=== PATIENT | male | born 1970 | race Caucasian/White ===

== ENCOUNTER 2020-10-19 10:38 | Emergency (ER) | payer BC, SELFPAY ==
[2020-10-19 10:54] VITALS: BP 154/100; PULSE 102; RESP 20; TEMP 36.6; O2SAT 98
--- NOTE | 2020-10-19 11:37 | ED.MALEGU ---
HPI - Male Genitourinary General Chief complaint: Urogenital-Male Stated complaint: Poss UTI Source: patient Mode of arrival: ambulatory Limitations: no limitations History of Present Illness HPI Narrative: Patient is a 50-year-old male who presents complaining of dysuria and frequency x2 days. He denies abdominal or flank pain. He denies fever, chills or body aches. He reports taking Azo yesterday without limited relief. He reports a history of diabetes and hypertension. He denies all other complaints at this time. Patient reports compliance with home medications. MD Complaint: dysuria Related Data Home Medications Medication Instructions Recorded Confirmed glipizide mg 10/19/20 sildenafil 10/19/20 Allergies Allergy/AdvReac Type Severity Reaction Status Date / Time metformin AdvReac Mild body aches Verified 10/19/20 11:14 Review of Systems Review of Systems: Narrative: CONSTITUTIONAL: Denies fever, chills, or sweats. EYES: Denies visual changes, redness, or discharge. ENT: Denies rhinorrhea, congestion, sore throat, or otalgia. CARDIOVASCULAR: Denies chest pain, palpitations, or edema. RESPIRATORY: Denies cough or dyspnea. GASTROINTESTINAL: Denies abdominal pain, nausea, vomiting, or diarrhea. GENITOURINARY: Reports dysuria and frequency SKIN: Denies rash or itching. MUSCULOSKELETAL: Denies back pain, joint pain, or myalgia. NEUROLOGIC: Denies headache, numbness, dizziness, or weakness. PSYCHIATRIC: Denies anxiety or depression. [facility] Past Medical History Medical History Carpal tunnel syndrome Diabetes HTN (hypertension) Surgical History Surgical History History of carpal tunnel surgery Family History Family History (Updated 10/19/20 @ 11:47 by LAYLA Jefferson) Other Heart disease Social History Social History (Updated 10/19/20 @ 11:47 by LAYLA Jefferson) Smoking status: Former smoker Alcohol intake: current Alcohol use details: Occasional Substance use: never Living arrangements: with family Occupation/Education: occupation Comments At the time of signature, I have reviewed and agree with nursing past medical, surgical, social, and family history unless otherwise noted. Please see nursing chart for further information. There is no relevant family history pertinent to the presenting complaint. Exam Narrative: Exam Narrative: GENERAL: Well-appearing, well-nourished, and in no acute distress. HEAD: Normocephalic, atraumatic. EYES: EOMI. No redness or drainage. ENT: Mucous membranes pink and moist. CHEST: No respiratory distress. HEART: Regular rate and rhythm. EXTREMITIES: Normal range of motion. SKIN: Warm, dry, no rash. NEURO: No focal deficits. Alert and oriented x3. Gait steady. PSYCH: Normal affect. No signs of depression or anxiety. Course Vital Signs Vital signs: Vital Signs Temperature 36.6 C 10/19/20 10:54 Pulse Rate 102 H 10/19/20 10:54 Respiratory Rate 20 10/19/20 10:54 Blood Pressure 154/100 H 10/19/20 10:54 Pulse Oximetry 98 10/19/20 10:54 Temperature 36.6 C 10/19/20 10:54 Pulse Rate 102 H 10/19/20 10:54 Respiratory Rate 20 10/19/20 10:54 Blood Pressure 154/100 H 10/19/20 10:54 Pulse Oximetry 98 10/19/20 10:54 MDM - Male Genitourinary Lab Data Labs: Urine Glucose 3+ Reference Range: Negative Urine Bilirubin Negative Reference Range: Negative Urine Ketone Trace Reference Range: Negative Urine Specific [place] 1.025 Reference Range:1.001-1.035 Urine Blood 2+
[2020-10-19 11:52] LABS: Glucose Point of Care 245 mg/dl (65-105)
== END 2020-10-19 12:08 | disposition home or self-care (01) ==
PROVIDERS: Emergency Provider Nurse Practitioner; PCP Internal Medicine
DX: N39.0 Urinary tract infection, site not specified (principal); Z87.891 Personal history of nicotine dependence; E11.9 Type 2 diabetes mellitus without complications; I10 Essential (primary) hypertension
CPT/HCPCS: 81003; 82948; 87086; 99203; G0463

== ENCOUNTER 2024-02-07 09:07 | Outpatient (CLI) | payer BC, SELFPAY ==
--- NOTE | ~2024-02-07 | MR_ITS ---
MRI of the left shoulder Technique: Axial proton-density fat-sat images, coronal proton density fat-sat and T2 fat-sat images, and sagittal T1-weighted and T2 fat-sat images were acquired. Clinical History: Impingement Findings: There is mild AC joint degenerative change. No significant subacromial spur present. There is mild bony productive change of the distal clavicle. Coracoclavicular, coracoacromial, and coracohu meral ligaments are intact. Possible linear low-grade partial tear at the distal supraspinatus tendon versus tendinosis. No high- grade partial or full-thickness tear seen. There is mild infraspinatus tendinosis. There is moderate subscapularis tendinosis. Tendon of long head of the biceps is intact. Questionable superior labral tear extending to the anterosuperior portion. Inferior glenohumeral ligament is intact. No degenerative change or effusion of the glenohumeral join t. No fluid distention of the subacromial/subdeltoid bursa. No muscle atrophy or edema. Impression: Questionable superior labral tear extending to the anterosuperior portion. Mild to [id number] rotator cuff tendinosis. Questionable linear low-grade partial thickness tea r at the distal supraspinatus tendon insertion. Mild AC joint degenerative change. Reviewed, dictated and finalized at [facility]. Impression: Questionable superior labral tear extending to the anterosuperior portion. Mild to [id number] rotator cuff tendinosis. Questionable linear low-grade partial thickness tear at the distal supraspinatus tendon insertion. Mild AC joint degenerative change.
== END 2024-02-07 09:08 | disposition home or self-care (01) ==
LOC: MICIMG 09:09
PROVIDERS: PCP Internal Medicine; Visit Provider Physician Assistant Surgical
DX: M75.42 Impingement syndrome of left shoulder (principal); M19.012 Primary osteoarthritis, left shoulder
CPT/HCPCS: 73221

== ENCOUNTER 2024-03-25 10:17 | Outpatient (CLI) | payer BC, SELFPAY ==
--- NOTE | 2024-03-25 10:51 | ECG_ITS ---
Test Date: 2024-03-25 10:58:32 Measurements Intervals [place] Rate: 66 P: 51 MD: 160 QRS: 14 QRSD: 86 T: 19 QT: 389 QTc: 410 Interpretive Statements SINUS RHYTHM WITH MARKED SINUS ARRHYTHMIA No previous ECG available for comparison Electronically Signed On 03-25-2024 14:45:55 [employer] by Ganesh Godoy M.D.
[2024-03-25 11:07] LABS: Anion Gap 4 mmol/L (4-12); Blood Urea Nitrogen 15 mg/dL (9-20); Carbon Dioxide 30 mmol/L (22-30); Chloride 104 mmol/L (98-107); Estimated Glomerular Filt Rate > 60; Glucose 140 mg/dL (65-110); Potassium 4.3 mmol/L (3.4-5.0); Sodium 138 mmol/L (137-145)
== END 2024-03-25 10:18 | disposition home or self-care (01) ==
LOC: ANHLAB 10:20
PROVIDERS: PCP Internal Medicine; Visit Provider Anesthesiology
DX: E11.9 Type 2 diabetes mellitus without complications (principal)
CPT/HCPCS: 36415; 80048; 93005

== ENCOUNTER 2024-03-30 01:36 | Day surgery (SDC) | payer BC, SELFPAY ==
[2024-03-24 10:54] VITALS: BMI 22.1
--- NOTE | 2024-03-24 11:02 | PC.NURSE ---
Report to the Outpatient Waiting Room, entrance under the green pavilion located off [facility], at time _1130_ on date _[id number]_. Planned Procedure Time: _130pm_.? Time changes happen often and if your time is changed the preop area will call you the afternoon before. - You and your visitor will be asked to self-screen and do not enter if you have any COVID symptoms. Please call surgeon if you need to reschedule. - A mask is optional within the hospital at this time. Patients may have clear liquids (water, carbonated beverages, clear teas, apple juice) until 3 hours prior to surgery with a maximum of 20 ounces. - No food from midnight until time of surgery and no smoking. This includes no chewing gum, candy or mints. Take only the following medications with a SIP of water on the morning of surgery: ___None DO NOT STOP ANY OF YOUR OTHER PRESCRIPTION MEDICATIONS PRIOR TO SURGERY EXCEPT THE FOLLOWING Medications to discontinue per physician Patient stopped Aspirin already.____ Please no make-up, nail ugandan, hairspray, perfume, deodorant, or body powder the day of surgery.? No jewelry (including any body piercings) or valuables the day of surgery, leave them at home.? Please take a shower or bath the night before, or the morning of, surgery with an antibacterial soap.? Wear comfortable, loose fitting clothing.? - Jewelry must be removed prior to entering the operating room.? Rings and piercings that are not removed may be cut off. - The hospital will not accept responsibility for valuables.? - Please leave all valuables, including medications, at home the day of surgery. If you are going home after surgery, a licensed services delivery driver must drive you home.? - NO public transportation without another adult if you receive anesthesia. - We recommend that an adult stay with you for 24 hours following discharge. - We also recommend that you do not drive, make important decision, drink alcoholic beverages, or take any drugs that were not prescribed by your health care provider for at least 24 hours after your discharge time. Follow any additional instructions given to you from your surgeon. Telephone instructions given to __David__and asked if any additional questions and then verbalized understanding. Patient advised to call surgeon office or pre surgery nurse liaison [phone] if any additional questions.
[2024-03-30] VITALS (9 sets, daily range): BP systolic 109–132; BP diastolic 67–87; PULSE 67–95; RESP 14–18; TEMP 36.2–36.4; O2SAT 93–99
--- NOTE | 2024-03-30 07:18 | WPDHPUPDATE1 ---
History and Physical Update Update Date/Time: 03/30/24 07:18 History and Physical has been reviewed, including an updated exam of the patient. There are NO changes in the patient's condition. Risks, benefits, and alternatives have been discussed and questions answered. Patient agrees to proceed with procedure.
[2024-03-30] MEDS: EPINEPHrine HCL INJ 1 MG/ML AMPUL 3 MG IRRIGATION (08:31)
[2024-03-30] MEDS: LACTATED RINGERS 1,000 ML 30 ML IV CONT ×2 (11:15→15:10)
[2024-03-30 12:11] LABS: Glucose Point of Care 114 mg/dl (65-105)
[2024-03-30] MEDS: ACETAMINOPHEN 500 MG TABLET 1000 MG PO (12:12)
[2024-03-30] MEDS: KETOROLAC 15 MG/ML VIAL (*BKC) IV PUSH (12:12)
--- NOTE | 2024-03-30 12:18 | WPDANESEPPF ---
Anes - Initial Pre Proc Eval Procedure: Operation Date: 03/30/24 13:30 Proposed Procedures p Left Arthroscopic Rotator Cuff Repair with Biceps Tenodesis, Subacromial Decompression, Proceed as Indicated - Yaniv Chau MD Date/Time: 03/30/24 12:18 Surgeon: Yaniv Chau MD Pre Op Diagnosis: left shoulder slap tear, biceps tendonitis Patient Data Age: 53 Gender: M Height: 1.8 m Weight: 71.8 kg Allergies Allergy/AdvReac Type Severity Reaction Status Date / Time metformin AdvReac Mild body aches Verified 03/30/24 12:14 Home Medications ?Medication ?Instructions ?Recorded ?Confirmed ?Type glipizide 5 mg tablet 5 mg PO DAILY 10/19/20 03/30/24 History sildenafil 100 mg tablet 100 mg PO HS PRN Sexual Activity 10/19/20 03/24/24 History aspirin 81 mg capsule 81 mg PO DAILY 06/16/23 03/30/24 History atorvastatin 40 mg tablet 40 mg PO HS 03/24/24 03/30/24 History empagliflozin 25 mg tablet 25 mg PO DAILY 03/24/24 03/30/24 History (Jardiance) lisinopril 10 mg tablet 10 mg PO DAILY 03/24/24 03/24/24 History semaglutide 1 mg/dose (4 mg/3 mL) 1 mg subcut WEEKLY 03/24/24 03/30/24 History subcutaneous pen injector (Ozempic) Laboratory Tests 03/30/24 12:05 POC Capillary Glucose 114 H mg/dl (65-105) Patient hx anesthesia problems: none Family hx anesthesia problems: none Results Review: All pre-operative results and documents have been reviewed as part of the pre-operative evaluation. [facility] Past Medical History Medical History History of stress test Carpal tunnel syndrome Diabetes HTN (hypertension) Surgical History Surgical History History of carpal tunnel surgery Family History Family History Other Heart disease Social History Social History Smoking packs per day: 1 Smoking cigarettes per day: 20.0 Years smoked: 19 Smoking pack-years: 19.00 Smoking status: Former smoker Tobacco type: cigarettes Smoking end date: 09/22/22 Additional smoking assessment comments: using nicotine gum presently Alcohol intake: current Alcohol use details: Occasional Substance use: never Do You Feel Safe in your Home?: Yes Lack of Transportation: No Lack of Food: Never True Current Housing: I Have Housing Concerned About Future Housing: No Difficulty Paying Gas/Electric Bills: No Difficulty Paying for Meds: No Currently Unemployed: No Education: Bachelor's Degree Difficulty w/ Childcare or Family Care: No Living arrangements: with family Occupation/Education: occupation Spiritual care concerns: No Anes - Eval Final PreProcedure Day of Procedure 03/30/24 12:18 Patient weight: normal Heart: regular rate and rhythm Lungs: clear to auscultation Airway: Mallampati scale Neurological: alert and oriented Last oral intake: >/= 8 hours ASA classification: III Emergent: no Anesthetic plan: proceed Anesthesia type and monitoring: general ETT and standard monitoring Results Review: All pre-operative results and documents have been reviewed as part of the pre-operative evaluation. HTN, DM fsbs 114, ex smoker quit 2021. Hx of CHARISMA but no CPAP since wt loss. Informed Consent: The patient's anesthetic plan and its attendant risks and benefits were discussed with the patient/family/POA. Questions were solicited and answers provided to the satisfaction of the patient/family/POA.
--- NOTE | 2024-03-30 13:04 | WPDANESPNB ---
Anes - Peripheral Nerve Block Date/Time: 03/30/24 13:04 I have discussed with the patient/family/POA the placement of a peripheral nerve block for post-operative pain management, including associated risks, benefits, complications, and side effects. Alternative methods of post-operative analgesia were detailed. Questions were solicited and answers provided to the satisfaction of the patient/family/POA. Time-Out: A pre-procedural Time-Out was completed immediately before starting the procedure and confirmed: Patient Identification, Site, Procedure, Patient Position and the Availability of Requisite Equipment. Clinical Indications: Acute post-operative pain management requested by the operative surgeon. Nerve Block Insertion Note Anes-nerve block: interscalene left Patient position: supine Skin prep: chlorhexidine Needle: 22 gauge, stimulating, insulated echogenic needle. Needle length: 50 mm Technique: ultrasound Injectate: bupivacaine 0.5% with epi 5 mcg/ml (20cc no epi) Observations: tolerated well Complications: none Procedure start time:: 1255 Procedure end time:: 1300
[2024-03-30] MEDS: ceFAZolin 2 GM/D5W 50 ML 2 GM/50 ML BAG IVPB (13:07)
[2024-03-30] MEDS: ceFAZolin 1 GM/NS 50 ML 1 GM/50 ML BAG IVPB (13:39)
[2024-03-30 15:19] LABS: Glucose Point of Care 114 mg/dl (65-105)
--- NOTE | 2024-03-30 17:28 | P.OP_ITS ---
Procedure Note - Detailed Date of Procedure 03/30/24 Pre-op Diagnosis Left shoulder partial thickness rotator cuff tear, SLAP tear, biceps tendinitis. Post-op Diagnosis Other (1. Partial thickness rotator cuff tear 2. Subacromial impingement 3. Biceps tendinosis 4. Degenerative labral tear) Procedure Performed Left shoulder 1. Arthroscopic rotator cuff repair 2. Arthroscopic subacromial decompression 3. Arthroscopic biceps tenodesis 4. Arthroscopic labral debridement Surgeon Yaniv Chau MD Curtain Stitcher Marleni Dominguez PA-C Anesthesia General Findings Mid grade articular side supraspinatus rotator cuff tear. SLAP tear and biceps tendinitis. Regenten collagen repair with 5 SHELBIE anchors and 2 PEEK anchors. Loop and Tack biceps tenodesis. Description of Procedure Preoperative antibiotics were given. An interscalene block was administered in the preoperative area. The patient was bought brought to the operating room. A general anesthetic was administered. The patient was carefully positioned in the beach chair position. The head and neck were carefully positioned. The non operative extremity was also carefully positioned. The shoulder was prepped and draped in the usual sterile fashion. Examination was performed. Standard posterior and anterior arthroscopic portals were established. Inflow achieved with the arthroscopic pump using saline and epinephrine. The glenohumeral joint was carefully inspected. The cartilage was healthy other than a small area of fraying at the anterior inferior glenoid labrum. The supraspinatus showed a significant 50% tear. The remaining tendon was good. The SLAP tear was extensive and the the biceps was tenodesed at the articular margin with a loop and tack fixation using a swivel lock anchor. The subscapularis looked very good. Attention was turned to the subacromial space. The bursa was abundant, and appeared inflamed. A complete bursectomy was performed. The bursal side of the cuff appeared normal. A modest acromioplasty was performed. The arthroscopic instruments were removed. The wounds were closed with 3-0 Monocryl subcuticular suture and steri strips. There were no complications. A sling was applied and the patient brought to the recovery room. Physician human resources benefits assistant, Marleni Dominguez PA-C, required for surgery; including patient positioning, draping, arthroscopic camera operation, maintaining instrument position, suture retrieval, wound closure, and dressing and sling placement. Implants Regeneten collagen implant, size large. 5 SHELBIE anchors, and 2 PEEK anchors. 4.75 bioabsorbable swivel tack anchor. Estimated Blood Loss 10 Pathology None sent Complications No immediate complications Condition Stable Disposition PACU [facility] Billing Surgery - Charge Forward: Surgery Billing
== END 2024-03-30 17:35 | disposition home or self-care (01) ==
PROVIDERS: PCP Internal Medicine; Visit Provider Orthopaedic Surgery
PROC: (CPT 29805; principal; 2024-03-30 13:30)
DX: M75.112 Incomplete rotator cuff tear or rupture of left shoulder, not specified as traumatic (principal); M75.42 Impingement syndrome of left shoulder; M75.22 Bicipital tendinitis, left shoulder; M75.82 Other shoulder lesions, left shoulder; G89.18 Other acute postprocedural pain; I10 Essential (primary) hypertension; E11.9 Type 2 diabetes mellitus without complications; Z87.891 Personal history of nicotine dependence; Z79.84 Long term (current) use of oral hypoglycemic drugs; Z79.85 Long-term (current) use of injectable non-insulin antidiabetic drugs
CPT/HCPCS: 29827; 29828; 29826; 64415; 82948; A4565; A9270; C1713; J0171; J0690; J1100; J1171; J1596; J1885; J2003; J2250; J2371; J2405; J2704; J3010; J7120

== ENCOUNTER 2024-11-05 10:52 | Emergency (ER) | payer BC, SELFPAY ==
--- OUTSIDE RECORDS SUMMARY | 2024-11-05 10:54 | XMS_ITS | Clinical Summary ---
Author Organization [facility] Address [address] [place] [address] Care Team Providers [facility] Name Role Phone Kris Perla MD Primary Care Provider [phone] Chas Thurman MD Unavailable Allergies Active Allergy Reactions Criticality Noted Date Comments Metformin Vomiting 10/08/2016 diarrhea Medications aspirin EC 81 MG Tablet Delayed Response Take 81 mg by mouth daily. Active Jardiance 25 MG Tablet TAKE 1 TABLET BY MOUTH EVERY DAY 30 Tablet 11 3 Active Blood Glucose Monitoring Suppl Device Diagnosis: Diabetes type 2 Blood testing frequency: once a day 1 Each 4 Active Lancets Misc Test once daily. E11.9 100 Lancet 3 4 Active Glucose Blood Strip Use to test blood sugar once daily. E11.9 100 Strip 3 4 Active lisinopril (PRINIVIL, ZESTRIL) 10 MG Tablet TAKE 1 TABLET BY MOUTH EVERY DAY 90 Tablet 1 4 Active sildenafil citrate (VIAGRA) 100 MG Tablet TAKE 1 TABLET BY MOUTH NEEDED FOR ERECTILE DYSFUNCTION 8 Tablet 9 4 Active atorvastatin (LIPITOR) 40 MG Tablet TAKE 1 TABLET BY MOUTH EVERY DAY 90 Tablet 1 4 Active tirzepatide (Mounjaro) 10 MG/0.5ML Solution Pen-injector 10 mg by Subcutaneous route once a week. 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 Acute pancreatitis without infection or necrosis 11/01/2017 Type 2 diabetes mellitus, wi thout long-term current use of insulin 11/01/2017 Hyponatremia 11/01/2017 Dyslipidemia 09/17/2017 Tobacco abuse 10/08/2016 Bronchitis 12/31/2015 Anxiety HTN (hypertension) Osteoarthritis of spine CHARISMA (obstructive sleep apnea) DM (diabetes mellitus) Immunizations Immunization Administration Dates Next Due Covid-19, Mrna, Lnp-s, Pf, 3 0 Mcg/0.3 Ml Dose (Boxee) 08/04/2020,07/14/2020 Influenza Vaccine, Quadrivalent, PF 03/19,01/01/2022,04/25/2021,02/17 Influenza,Split Virus,Trivalent,Injectable,PF 12/31/2023 Pneumococcal PCV, Unspecifie d Formulation 11/25/2012 Pneumococcal Vaccine Adult - 23 Valent 3 Pneumococcal Vaccine, Unspec ified Formulation 11/25/2012 Pneumococcal conjugate PCV20 , polysaccharide [id number] conjugate, adjuvant, PF 01/01/2022 TD VACCINE 07/27/2023 TDAP Vaccine 11/25/2012 Tetanus Toxoid, Unspecified Formulation 04/19/2003 Family History Medical History Relation Name Comments No Known Problems Daughter 1 No Known Problems Daughter 2 Cancer Father Congestive Heart Failure Father Diabetes Father Hypertension Father Lung Cancer Father Diabetes Mother Cancer Paternal Grandmother Throat? No Known Problems Sister No Known Problems Son Relation Name Status Comments Daughter 1 Alive Daughter 2 Alive Father Maternal Grandfather Maternal Grandmother Mother Alive Paternal Grandfather Paternal Grandmother Sister Alive Son Alive Social History Tobacco Use Types Packs/Day Years Used Date Smoking Tobacco: Former Cigarettes 0.5 34.2 1 989 - 07/10/2022 Smokeless Tobacco: Former Chew Quit: 1999 Tobacco Cessation:Counseling Given: No Alcohol Use Standard Drinks/Week Comments Yes 0 (1 standard drink = 0.6 oz pur e alcohol) 1-2 beers a week [facility] Utilities Answer Date Recorded In the past 12 months has th e electric, gas, oil, or water company threatened to shut off services in your home? No 07/27/2023 Social Connection and Isolation Panel Answer Date Recorded In a typical week, how many times do you talk on the phone with family, friends, or neighbors? Three times a week 07/27/2023 How often do you get togethe r with friends or relatives? Once a week 07/27/2023 Attends Synagogue Services Not on file 07/26 Active Member of Clubs or Organizations Not on f ile 07/27/2023 Attends Club or Organization Meetings Not on tali e 07/27/2023 Marital Status Not on file 07/27/2023 AUDIT-C Answer Date Recorded Q1: How often do you have a drink containing alc ohol? 2-4 times a month 07/27/2023 Q2: How many drinks containi ng alcohol do you have on a typical day when you are drinking? 1 or 2 07/27/2023 Frequency of Binge Drinking Not on file 12/2023 Overall Financial Resource Strain (CARDIA) Answe r Date Recorded How hard is it for you to pa y for the very basics like food, housing, medical care, and heating? Not hard at all 07/27/2023 PHQ-2 Answer Date Recorded Total Score - Questions 1-9 0 10/2021 [facility] - Occupational Stress Questionnaire Answer Date Recorded Do you feel stress - tense, restless, nervous, or anxious, or unable to sleep at night because your mind is troubled all the time - these days? Not at all 07/27/2023 Exercise Vital Sign Answer Date Recorde d On average, how many days pe r week do you engage in moderate to strenuous exercise (like a brisk walk)? 5 days 07/27/2023 On average, how many minutes do you engage in exercise at this level? 40 min 07/27/2023 Hunger Vital Sign Answer Date Recorded Within the past 12 months, y ou worried that your food would run out before you got the money to buy more. Never true 07/27/19 24 Within the past 12 months, t he food you bought just didn't last and you didn't have money to get more. Never true 07/27/2023 PRAPARE - Transportation Answer Date Re corded In the past 12 months, has l ack of transportation kept you from medical appointments or from getting medications? No 12/2023 In the past 12 months, has l ack of transportation kept you from meetings, work, or from getting things needed for daily living? No 07/27/2023 Housing Stability Vital Sign Answer Anmol e Recorded In the last 12 months, was t here a time when you were not able to pay the mortgage or rent on time? No 07/27/2023 In the last 12 months, how many places have you lived? 1 07/27/2023 In the last 12 months, was t here a time when you did not have a steady place to sleep or slept in a long term (including now)? No 07/27/2023 Education Answer Date Recorded What is the highest level of school you have completed or the highest degree you have received? Associate degree: academic program 07/31/2020 Sexually Active Control Partners Comments Not Currently Female Sex and Gender Information Value Date Recorded Sex Assigned at Not on file Legal Sex Male 11:05 PM CDT Gender Identity Not on file Sexual Orientation Not on file Last Filed Vital Signs Vital Sign Reading Time Taken Comments Blood Pressure 126/78 12/31/2023 7:38 AM CDT Pulse 94 12/31/2023 7:38 AM CDT Temperature 36.2 C (97.1 F) 12/31/2023 7:38 AM CDT Respiratory Rate 16 12/31/2023 7:38 AM CDT Oxygen Saturation 96% 12/31/2023 7:38 AM CDT Inhaled Oxygen Concentration - - Weight 117.9 kg (260 lb) 12/31/2023 7:38 AM CDT Height 180.3 cm (5' 11) 12/31/2023 7:38 AM CDT Body Mass Index 36.26 12/31/2023 7:38 AM CDT Plan of Treatment Health Maintenance Due Date Last Done Comments Diabetes: Eye Exam 1969 Hepatitis C Virus (HCV) Screening 1969 Hepatitis B Immunization (1 of 3 - 19+ 3-dose series) 1988 Cologuard 2014 Immunochemical Fecal Occult Blood 2014 Zoster Immunization (1 of 2) 09/24/2019 Diabetes: Foot Exam 08/11/2023 08/10/2022, 09/19/2018, 09/19/2018 SARS-COV-2 Immunization ( season) 2023 08/04/2020, 07/14/2020 Diabetes: Hemoglobin A1c 01/26/2024 024, 03/30/2023, 11/04/2022, Additional history exists Colonoscopy 04/18/2024 04/18/2014 Colorectal Cancer Screening 04/18/2024 Diabetes: Nephropathy Screening 07/26/2024 07/27/2023, 03/30/2023, 11/04/2022, Additional history exists Influenza Immunization (#1) 12/18/202412/18, 03/30/2023, 01/01/2022, Additional history exists Td Immunization Every 10 Years (Adults With 1 Tdap) 07/26/2033 07/27/2023, 11/25/2012 Respiratory Syncytial Virus (RSV) Immunization (Adult) (1 - 1-dose 75+ series) 2044 Pneumococcal Immunization (50+ years) Completed 01/01/2022, 11/25/2012, 11/25/2012, Additional history exists Pneumococcal Immunization Combined Discontinued 01/01/2022, 11/25/2012, 11/25/2012, Additional history exists PSA Discussion Completed 11/04/2022 Human Papillomavirus (HPV) Immunization Aged Out No longer eligible based on patient's age to complete this topic Meningococcal Immunization (ACWY) Aged Out No longer eligible based on patient's age to complete this topic Rotavirus Immunization Aged Out No lo nger eligible based on patient's age to complete this topic Procedures Procedure Name Priority Date/Time Associated Diagnosis Comments CMP (COMPREHENSIVE METABOLIC PANEL) Today 07/27/2023 4:25 PM CDT Type 2 diabetes mellitus without complication, without long-term current use of insulin (HCC) Essential hypertension HEMOGLOBIN A1C W/ ESTIMATED GLUCOSE Today 07/27/2023 4:25 PM CDT Type 2 diabetes mellitus without complication, without long-term current use of insulin (HCC) Essential hypertension PSA SCREEN Routine 11/04/2022 1:48 PM CDT Screening for prostate cancer HM COLONOSCOPY Routine 04/18/2014 from Last 3 Months or Most Recently Relevant to Health Maintenance Results * (ABNORMAL) HEMOGLOBIN A1C W/ ESTIMATED GLUCOSE (07/27/2023 4:25 PM CDT) HGB-A1C 7.2(H) 4.0 - 6.0 % 07/27/2023 6:48 PM CDT [facility] Est Average Glucose 159.9 mg/dL 07/27/2023 6:48 PM CDT [facility] Blood Venipuncture / Unknown 07/27/2023 4:25 PM CDT 07/27/2023 5:58 PM CDT Narrative [facility] - 07/27/2023 6:48 PM CDT HEMOGLOBIN A1C: DIABETIC PATIENTS: WELL-CONTROLLED: 6.2 - 7.0 INTERMEDIATE WELL-CONTROLLED: 7.0 - 9.0 POORLY-CONTROLLED: >9.0 us Kris Perla MD CHEMISTRY ORDERABLES Final Re sult [facility] [address] [place] [address] * (ABNORMAL) CMP (COMPREHENSIVE METABOLIC PANEL) (07/27/2023 4:25 PM CDT) Pathologist [facility] SODIUM 139 136 - 145 mmol/L 07/27/2023 6:50 PM CDT [facility] POTASSIUM 4.0 3.5 - 5.1 mmol/L 07/27/2023 6:50 PM CDT [facility] CHLORIDE 105 98 - 107 mmol/L 07/27/2023 6:50 PM CDT [facility] CO2, VENOUS 25 22 - 30 mmol/L 07/27/2023 6:50 PM CDT [facility] ANION GAP 13.0 <18.0 mmol/L 07/27/2023 6:50 PM CDT [facility] GLUCOSE 100(H) 70 - 99 mg/dL 07/27/2023 6:50 PM CDT [facility] BUN 11 8 - 26 mg/dL 07/27/2023 6:50 PM CDT [facility] CREATININE, BLOOD 0.79 0.70 - 1.30 mg/dL 07/27/2023 6:50 PM CDT [facility] BUN/CREATININE RATIO 14 12 - 20 ratio 07/27/2023 6:50 PM CDT [facility] TOTAL PROTEIN 7.2 6.3 - 8.2 g/dL 07/27/2023 6:50 PM CDT [facility] ALBUMIN 4.2 3.5 - 5.0 g/dL 07/27/2023 6:50 PM CDT [facility] A/G RATIO 1.4 1.0 - 2.2 07/27/2023 6:50 PM CDT [facility] CALCIUM 9.3 8.7 - 10.5 mg/dL 07/27/2023 6:50 PM CDT [facility] T BILI 0.6 0.2 - 1.2 mg/dL 07/27/2023 6:50 PM CDT [facility] SGOT (AST) 25 5 - 34 U/L 07/27/2023 6:50 PM T [facility] SGPT (ALT) 29 0 - 55 U/L 07/27/2023 6:50 PM CDT [facility] ALKALINE PHOSPHATASE 93 40 - 150 U/L 07/27/2023 6:50 PM T [facility] IS THE PATIENT REQUIRED TO BE FASTING? No 07/27/2023 6:50 PM CDT [facility] GFR, ESTIMATED >60 >=60 07/27/2023 6:50 PM T [facility] Comment: Creatinine Clearance is the preferred criteria for selecting drug dose adjustments in renally impaired patients. The GFR is provided as additional pertinent clinical information. GFR is reported in mL/min/1.73 sq m. Calculation based on the Chronic Kidney Disease Epidemiology Collaboration (CKD- EPI) equation refit without adjustment for race. GFR, EST. >60 >=60 024 6:50 PM CDT [facility] GFR, EST. NONAFRICAN >60 >=60 07/27/2023 6:50 PM CDT [facility] Blood Venipuncture / Unknown 07/27/2023 4:25 PM CDT 07/27/2023 5:59 PM CDT us Kris Perla MD CHEMISTRY ORDERABLES Final Re sult Performing Organization Address City/[facility]/ZIP Co de Phone Number [facility] [address] [place] [address] * PSA SCREEN (11/04/2022 1:48 PM CDT) PSA SCREEN, TOTAL 0.27 <=4.00 ng/mL 11/04/2022 4:17 PM CDT [facility] Blood Venipuncture / Unknown 11/04/2022 1:48 PM CDT 11/04/2022 1:48 PM CDT us Kris Perla MD CHEMISTRY ORDERABLES Final Re sult Performing Organization Address City/[facility]/ZIP Co de Phone Number [facility] [address] [place] [address] * COLONOSCOPY (04/18/2014) us Kris Perla MD PROCEDURE/MINOR SURGICAL ORDE LENY Edited Result - Final from Last 3 Months or Most Recently Relevant to Health Maintenance Insurance [facility] Advance Directives * Full Code (Latest Code Status on File) Date Activated Date Inactivated Comments 11/01/2017 4:31 PM 11/03/2017 3:40 PM CPR-Full Trav atment: FULL ARREST: Attempt Resuscitation/CPR wit intubation and mechanical ventilation. PRE-ARREST: Use entire range of life support measures to stabilize the patient. Care Teams [facility] Relationship Specialty Start Date End Date Kris Perla MD [address] [facility] [address] [place] [address] PCP - General Family Medicine 03/15/15 Chas Thurman MD [address] [facility] [address] [place] [address] Consulting Physician Colon and Rectal Surgery 03/18/22
--- OUTSIDE RECORDS SUMMARY | 2024-11-05 10:54 | XMS_ITS | Encounter Summary ---
Author Organization [facility] Address [address] 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 Under Cutting Machine Operator Name Role Phone Kris Perla MD Primary Care Provider [phone] Chas Thurman MD Unavailable Reason for Visit * Reason Comments Medication Refill Encounter Details Date Type Department Care Team (Late st Contact Info) Description 05/14/2023 Refill [facility] - Family Medicine [facility] [address] [place] [address] Kris Perla MD [address] [address] Medication Refill Social History Tobacco Use Types Packs/Day Years Used Date Smoking Tobacco: Former Cigarettes 0.5 34.2 1 989 - 07/10/2022 Smokeless Tobacco: Former Chew Quit: 1999 Alcohol Use Standard Drinks/Week Comments Yes 0 (1 standard drink = 0.6 oz pur e alcohol) 1-2 beers a week PHQ-2 Answer Date Recorded Total Score - Questions 1-9 0 10/2021 Education Answer Date Recorded What is the highest level of school you have completed or the highest degree you have received? Associate degree: academic program 07/31/2020 Sexually Active Control Partners Comments Not Currently Female Sex and Gender Information Value Date Recorded Sex Assigned at Not on file Legal Sex Male 11:05 PM CDT Gender Identity Not on file Sexual Orientation Not on file documented as of this encounter Miscellaneous Notes * Telephone Encounter - Kelly Flower RN - 05/14/2023 4:35 PM CST Images from the original note were not included. Lisinopril Dispensed Days Supply Quantity Provider Pharmacy LISINOPRIL 10 MG TABS 05/09/2023 90 90 Tablet Kris Perla MD [facility]/pharmacy #[id number] - W... LISINOPRIL 10 MG TABLET 02/08/2023 90 90 Each Kris Perla MD [facility]/pharmacy #[id number] - W... GER OF PURCHASING documented in this encounter Plan of Treatment Not on file documented as of this encounter Visit Diagnoses Not on filedocumented in this encounter Additional Health Concerns Assessment Noted Time PHQ-9 Depression Total Score: 0 01/24/20 21 3:00 PM CDT documented as of this encounter Care Teams Under Cutting Machine Operator Relationship Specialty Start Date End Date Kris Perla MD [address]2 [facility] [address] [place] [address] PCP - General Family Medicine 03/15/15 Chas Thurman MD #2 [facility] [address] [place] [address] Consulting Physician Colon and Rectal Surgery 03/18/22 documented as of this encounter
--- OUTSIDE RECORDS SUMMARY | 2024-11-05 10:54 | XMS_ITS | Continuity of Care Document ---
Author Name [facility] Organization [facility] Care Team Providers Care Child Care Aide Name Role Phone [facility] Unavailable Unavailable Problems Combined list of problems from Department of Defense and Veterans Affairs facilities. It does not include entries that were removed or entered in error. Problem Status Onset Date Problem Type Date of Resolution Comments Source Allergic rhinitis Active Condition [facility] Benign essential hypertension (SNOMED CT 4104854) Active Condition [facility] Exposure to potentially hazardous substance Active Condition [facility] Hyperlipidemia Active Condition [facility] Low back pain Active Condition [facility] Mixed anxiety and depressive disorder Active Condition [facility] Morbid obesity (SNOMED CT 079409599) Active Condition [facility] Tobacco user (SNOMED CT 468675671) Active Condition [facility] Type 2 diabetes mellitus Active Condition [facility] Abdominal pain (SNOMED CT 86083269) Inactive Condition 09/22/2023 [facility] Constipation (SNOMED CT 59662673) Inactive Condition 09/22/2023 [facility] Elevated blood pressure reading without diagnosis of hypertension Inactive Condition 09/22/2023 [facility] Foot Pain (ICD-9-CM 719.47) Inactive Condition 09/22/2023 [facility] Palpitations Inactive Condition 09/22/2023 [facility] Plantar Fasciitis Inactive Condition 09/22/2023 [facility] Routine General Medical Examination at a Health Care Facility * Inactive Condition 09/22/2023 [facility] Unresolved Inactive Condition 09/22/2023 [facility] Diagnosis: ICD-10-CM D48.5 Neoplasm of uncertain behavior of skin Active Diagnosis [facility] Diagnosis: ICD-10-CM E11.9 Type 2 diabetes mellitus without complications Active Diagnosis [facility] Diagnosis: ICD-10-CM F43.20 Adjustment disorder, unspecified Active Diagnosis [facility] Medications Combined list of outpatient medications from Department of Defense and Veterans Affairs facilities.Medications provided include 1) outpatient medications from the last 15 months, and 2) patient-reported medications. Medication Details Route Status Patient Instructions Prescription Expires Prescription Number Last Dispense Date Ordering Provider Order Date Order Qty Source ASPIRIN 81MG TAB,EC TAKE ONE TABLET BY MOUTH ONCE A DAY ORAL ACTIVE DELLA MAC 2023 [facility] ATORVASTATI N CA 80MG TAB TAKE ONE-HALF TABLET BY MOUTH EVERY EVENING ORAL 10/28/2024 [id number] 5 SUSAN RIZO 2023 45 [facility] EMPAGLIFLOZ IN 25MG TAB TAKE ONE TABLET BY MOUTH ONCE A DAY ORAL SUSPEND ED 10/10/2025 [id number] 5 DELLA MAC 2024 90 [facility] EMPAGLIFLOZ IN 25MG TAB TAKE ONE TABLET BY MOUTH ONCE A DAY ORAL DISCONT INUED 10/28/2024 [id number] 5 SUSAN RIZO 2023 90 [facility] GLIPIZIDE 5MG TAB TAKE ONE TABLET BY MOUTH TWO TIMES A DAY BEFORE MEALS TAKE 30 MINUTES BEFORE EATING. ORAL 10/28/2024 [id number] 5 SUSAN RIZO 2023 180 [facility] LISINOPRIL 20MG TAB TAKE ONE-HALF TABLET BY MOUTH ONCE A DAY ORAL 10/28/2024 [id number] 5 SUSAN RIZO 2023 45 [facility] SEMAGLUTIDE 1MG/0.75ML INJ,SOLN,PE N,3ML INJECT 1MG UNDER THE SKIN EVERY WEEK FOR DIABETES SUBCUT ANEOUS SUSPEND ED 10/10/2025 [id number] 5 DELLA MAC 2024 3 [facility] SEMAGLUTIDE 1MG/0.75ML INJ,SOLN,PE N,3ML INJECT 1MG UNDER THE SKIN EVERY WEEK FOR DIABETES SUBCUT ANEOUS DISCONT INUED 05/06/2025 [id number] 5 SUSAN RIZO 2024 3 [facility] SEMAGLUTIDE 1MG/0.75ML INJ,SOLN,PE N,3ML INJECT 1MG UNDER THE SKIN EVERY WEEK SUBCUT ANEOUS DISCONT INUED 11/15/2024 [id number] 5 SUSAN RIZO 2023 1 [facility] SEMAGLUTIDE 2MG/0.75ML INJ,SOLN,PE N,3ML INJECT 2MG UNDER THE SKIN EVERY WEEK FOR DIABETES SUBCUT ANEOUS DISCONT INUED BY MICHELLE R 11/02/2024 [id number] 4 SUSAN RIZO 2023 1 [facility] TERBINAFINE HCL 1% CREAM,TOP APPLY SPARINGL Y TO AFFECTED AREA(S) TWICE A DAY FOR FUNGAL SKIN INFECTIO N TOPICA L ACTIVE 10/10/2025 [id number] 5 DELLA MAC 2024 90 [facility] TRIAMCINOLO NE ACETONIDE 0.1% OINT,TOP APPLY LIGHTLY TO AFFECTED AREA(S) TWICE DAILY NEEDED FOR ATOPIC DERMATIT IS (EXTERNA L USE ONLY) TOPICA L ACTIVE 10/17/2025 [id number] 5 MERYL GUTIÉRREZ 2024 80 [facility] Allergies, Adverse Reactions, Alerts Combined list of allergies from Department of Defense and Veterans Affairs facilities. It does not include entries that were removed or entered in error. Substance Category Reaction Severity Reaction type Status Date Reported Comments Source FIRE ANTS Propensity to adverse reaction (finding) Edema active 11/14/2008 [facility] METFORMIN Propensity to adverse reactions to drug (finding) Diarrhea SEVERE active 10/28/2023 [facility] Immunizations Combined list of available immunizations from the Department of Defense and Veterans Affairs facilities. Immunization Series Date Given Administered By Site Reaction Lot Number CVX Code Drug Customer Care Professional Status Comments Source PNEUMOCOCCAL, UNSPECIFIED FORMULATION 2012 109 complet ed [facility] TDAP 2012 115 complet ed Left Deltoid [facility] Results Combined list of recent chemistry, hematology and other laboratory results from Department of Defense and Veterans Affairs, ranging from 15 months to all on record, depending upon the facility. Order Name Results Value Reference Range Date Interpretation Specimen Comments Source PROST. SPECIFIC AG.(PB-STL ) PROSTATE SPECIFIC AG [MASS/VOLUM E] IN SERUM OR PLASMA 0.429 ng/mL 0 - 4 10/09 Specimen Type: SERUM Comment: The listed sex of this patient may not be a typical indication for this test. Therefore, reference ranges or interpretive criteria listed may not be valid. Clinical correlation suggested. Ordering Provider: JAIME MAC Report Released Date/Time: Sep 22, 2023 09:05 AM Reporting Lab: [place] [address] Performing Lab: [phone] [place] [address] [facility] TSH W/ REFLEX FT4 (STL) THYROTROPIN [UNITS/VOLU ME] IN SERUM OR PLASMA 0.416 u[IU]/ mL 0.47 - 5 10/09 L Specimen Type: PLASMA Comment: No hemolysis noted. Ordering Provider: JAIME MAC Report Released Date/Time: Sep 22, 2023 09:05 AM Reporting Lab: [address] [address] Performing Lab: [address] [phone] [place] [address] [facility] TSH W/ REFLEX FT4 (STL) FREE T4(REFLEX) 1.07 ng/mL 0.7 - 1.48 10/09 Specimen Type: PLASMA Comment: No hemolysis noted. Ordering Provider: JAIME MAC Report Released Date/Time: Sep 22, 2023 09:05 AM Reporting Lab: [address] [address] Performing Lab: [address] [address] [facility] MICRAL/CRE AT PROFILE (STL) ALBUMIN [MASS/VOLUM E] IN URINE 8.5 mg/L 10/09 Specimen Type: URINE No comment entered. Ordering Provider: JAIME MAC Report Released Date/Time: Sep 22, 2023 09:05 AM Reporting Lab: [address] [address] Performing Lab: [address] [address] [facility] MICRAL/CRE AT PROFILE (STL) ALBUMIN/CRE ATININE [MASS RATIO] IN URINE 9 mg/g 0 - 29 10/09 Specimen Type: URINE No comment entered. Ordering Provider: JAIME MAC Report Released Date/Time: Sep 22, 2023 09:05 AM Reporting Lab: [address] [address] Performing Lab: [address] [phone] [place] [address] [facility] MICRAL/CRE AT PROFILE (STL) CREATININE [MASS/VOLUM E] IN URINE 89.6 mg/dL 63 - 166 10/09 Specimen Type: URINE No comment entered. Ordering Provider: JAIME MAC Report Released Date/Time: Sep 22, 2023 09:05 AM Reporting Lab: [address] [address] Performing Lab: [address] [address] [facility] LIPID PANEL (STL) CHOLESTEROL [MASS/VOLUM E] IN SERUM OR PLASMA 131 mg/dL 0 - 200 10/09 Specimen Type: PLASMA Comment: No hemolysis noted. Ordering Provider: JAIME MAC Report Released Date/Time: Sep 22, 2023 09:05 AM Reporting Lab: [address] [address] Performing Lab: [address] [address] [facility] LIPID PANEL (STL) TRIGLYCERID E [MASS/VOLUM E] IN SERUM OR PLASMA 183 mg/dL 0 - 150 10/09 H Specimen Type: PLASMA Comment: No hemolysis noted. Ordering Provider: JAIME MAC Report Released Date/Time: Sep 22, 2023 09:05 AM Reporting Lab: [address] [address] Performing Lab: [address] [address] [facility] LIPID PANEL (STL) CHOLESTEROL IN LDL [MASS/VOLUM E] IN SERUM OR PLASMA BY CALCULATION 49 mg/dL 10/09 Specimen Type: PLASMA Comment: No hemolysis noted. Ordering Provider: JAIME MAC Report Released Date/Time: Sep 22, 2023 09:05 AM Reporting Lab: [address] [address] Performing Lab: [address] [address] [facility] LIPID PANEL (STL) CHOLESTEROL IN HDL [MASS/VOLUM E] IN SERUM OR PLASMA 45 mg/dL 40 10/09 Specimen Type: PLASMA Comment: No hemolysis noted. Ordering Provider: JAIME MAC Report Released Date/Time: Sep 22, 2023 09:05 AM Reporting Lab: [address] [address] Performing Lab: [address] [address] [facility] COMPREHENS VIOLETTA METABOLIC PANEL CREATININE [MASS/VOLUM E] IN SERUM OR PLASMA 0.68 mg/dL 0.7 - 1.3 10/09 L Specimen Type: PLASMA Comment: No hemolysis noted. Ordering Provider: JAIME MAC Report Released Date/Time: Sep 22, 2023 09:05 AM Reporting Lab: [address] [address] Performing Lab: [address] [address] [facility] COMPREHENS VIOLETTA METABOLIC PANEL UREA NITROGEN [MASS/VOLUM E] IN SERUM OR PLASMA 12.8 mg/dL 9.0 - 25.0 10/09 Specimen Type: PLASMA Comment: No hemolysis noted. Ordering Provider: JAIME MAC Report Released Date/Time: Sep 22, 2023 09:05 AM Reporting Lab: [place] [address] [facility] [address] Performing Lab: [place] [address] [facility] [address] [facility] COMPREHENS VIOLETTA METABOLIC PANEL GLUCOSE [MASS/VOLUM E] IN SERUM OR PLASMA 134 mg/dL 72 - 99 10/09 H Specimen Type: PLASMA Comment: No hemolysis noted. Ordering Provider: JAIME MAC Report Released Date/Time: Sep 22, 2023 09:05 AM Reporting Lab: [place] [address] [facility] [address] Performing Lab: [place] [address] [facility] [address] [facility] COMPREHENS VIOLETTA METABOLIC PANEL SODIUM [MOLES/VOLU ME] IN SERUM OR PLASMA 138 meq/L 136 - 145 10/09 Specimen Type: PLASMA Comment: No hemolysis noted. Ordering Provider: JAIME MAC Report Released Date/Time: Sep 22, 2023 09:05 AM Reporting Lab: [place] [address] [facility] [address] Performing Lab: [place] [address] [facility] [address] [facility] COMPREHENS VIOLETTA METABOLIC PANEL POTASSIUM [MOLES/VOLU ME] IN SERUM OR PLASMA 4.2 meq/L 3.5 - 5 10/09 Specimen Type: PLASMA Comment: No hemolysis noted. Ordering Provider: JAIME MAC Report Released Date/Time: Sep 22, 2023 09:05 AM Reporting Lab: [place] [address] [facility] [address] Performing Lab: [address] [address] [facility] COMPREHENS VIOLETTA METABOLIC PANEL CHLORIDE [MOLES/VOLU ME] IN SERUM OR PLASMA 108 meq/L 98 - 107 10/09 H Specimen Type: PLASMA Comment: No hemolysis noted. Ordering Provider: JAIME MAC Report Released Date/Time: Sep 22, 2023 09:05 AM Reporting Lab: [place] [address] [facility] [address] Performing Lab: [place] [address] [facility] [address] [facility] COMPREHENS VIOLETTA METABOLIC PANEL CARBON DIOXIDE, TOTAL [MOLES/VOLU ME] IN SERUM OR PLASMA 21 meq/L 22 - 31 10/09 L Specimen Type: PLASMA Comment: No hemolysis noted. Ordering Provider: JAIME MAC Report Released Date/Time: Sep 22, 2023 09:05 AM Reporting Lab: [place] [address] [facility] [address] Performing Lab: [place] [address] [facility] [address] [facility] COMPREHENS VIOLETTA METABOLIC PANEL CALCIUM [MASS/VOLUM E] IN SERUM OR PLASMA 9.4 mg/dL 8.4 - 10.4 10/09 Specimen Type: PLASMA Comment: No hemolysis noted. Ordering Provider: JAIME MAC Report Released Date/Time: Sep 22, 2023 09:05 AM Reporting Lab: [place] [address] [facility] [address] Performing Lab: [place] [address] [facility] [address] [facility] COMPREHENS VIOLETTA METABOLIC PANEL PROTEIN [MASS/VOLUM E] IN SERUM OR PLASMA 7.3 g/dL 6 - 8.6 10/09 Specimen Type: PLASMA Comment: No hemolysis noted. Ordering Provider: JAIME MAC Report Released Date/Time: Sep 22, 2023 09:05 AM Reporting Lab: [place] [address] [facility] [address] Performing Lab: [facility] [address] [facility] [address] [facility] COMPREHENS VIOLETTA METABOLIC PANEL ALBUMIN [MASS/VOLUM E] IN SERUM OR PLASMA 4.4 g/dL 3.4 - 5 10/09 Specimen Type: PLASMA Comment: No hemolysis noted. Ordering Provider: JAIME MAC Report Released Date/Time: Sep 22, 2023 09:05 AM Reporting Lab: [place] [address] [facility] [address] Performing Lab: [place] [address] [facility] [address] [facility] COMPREHENS VIOLETTA METABOLIC PANEL BILIRUBIN.T OTAL [MASS/VOLUM E] IN SERUM OR PLASMA 0.4 mg/dL 0.2 - 1.2 10/09 Specimen Type: PLASMA Comment: No hemolysis noted. Ordering Provider: JAIME MAC Report Released Date/Time: Sep 22, 2023 09:05 AM Reporting Lab: [place] [address] [facility] [address] Performing Lab: [place] [address] [facility] [address] [facility] COMPREHENS VIOLETTA METABOLIC PANEL ALKALINE PHOSPHATASE [ENZYMATIC ACTIVITY/VO LUME] IN SERUM OR PLASMA 85 U/L 40 - 150 10/09 Specimen Type: PLASMA Comment: No hemolysis noted. Ordering Provider: JAIME MAC Report Released Date/Time: Sep 22, 2023 09:05 AM Reporting Lab: [place] [address] [facility] [address] Performing Lab: [place] [address] [facility] [address] [facility] COMPREHENS VIOLETTA METABOLIC PANEL ASPARTATE AMINOTRANSF ERASE [ENZYMATIC ACTIVITY/VO LUME] IN SERUM OR PLASMA 23 U/L 5 - 34 10/09 Specimen Type: PLASMA Comment: No hemolysis noted. Ordering Provider: JAIME MAC Report Released Date/Time: Sep 22, 2023 09:05 AM Reporting Lab: [place] [address] [facility] [address] Performing Lab: [address] [phone] [place] [address] [facility] COMPREHENS VIOLETTA METABOLIC PANEL ALANINE AMINOTRANSF ERASE [ENZYMATIC ACTIVITY/VO LUME] IN SERUM OR PLASMA 26 U/L 8 - 40 10/09 Specimen Type: PLASMA Comment: No hemolysis noted. Ordering Provider: JAIME MAC Report Released Date/Time: Sep 22, 2023 09:05 AM Reporting Lab: [address] [address] Performing Lab: [address] [facility] COMPREHENS VIOLETTA METABOLIC PANEL GLOMERULAR FILTRATION RATE/1.73 SQ M.PREDICTED [VOLUME RATE/AREA] IN SERUM, PLASMA OR BLOOD BY CREATININE- BASED FORMULA (CKD-EPI 2020) 109.8 60 10/09 Specimen Type: PLASMA Comment: No hemolysis noted. Ordering Provider: JAIME MAC Report Released Date/Time: Sep 22, 2023 09:05 AM Reporting Lab: [place] [address] Performing Lab: [address] [facility] HGA1C HEMOGLOBIN A1C/HEMOGLO BIN.TOTAL IN BLOOD 8.4 4.0 - 6.0 10/09 H Specimen Type: BLOOD No comment entered. Ordering Provider: JAIME MAC Report Released Date/Time: Sep 22, 2023 09:05 AM Reporting Lab: [address] [address] Performing Lab: [address] [facility] VITAMIN D, 25-HYDROXY 25-HYDROXYV ITAMIN D3 [MASS/VOLUM E] IN SERUM OR PLASMA 18.2 ng/mL 30 - 96 10/09 L Specimen Type: SERUM Comment: The listed sex of this patient may not be a typical indication for this test. Therefore, reference ranges or interpretive criteria listed may not be valid. Clinical correlation suggested. Ordering Provider: JAIME MAC Report Released Date/Time: Sep 22, 2023 09:05 AM Reporting Lab: [address] [address] Performing Lab: [address] [phone] [place] [address] [facility] CBC LEUKOCYTES [#/VOLUME] IN BLOOD BY AUTOMATED COUNT 8.3 10*3/u L 3.6 - 11.2 10/09 Specimen Type: BLOOD No comment entered. Ordering Provider: JAIME MAC Report Released Date/Time: Sep 22, 2023 09:05 AM Reporting Lab: [address] [address] Performing Lab: [address] [phone] [place] [address] [facility] CBC ERYTHROCYTE S [#/VOLUME] IN BLOOD BY AUTOMATED COUNT 5.65 10*6/u L 4.10 - 5.70 10/09 Specimen Type: BLOOD No comment entered. Ordering Provider: JAIME MAC Report Released Date/Time: Sep 22, 2023 09:05 AM Reporting Lab: [address] [address] Performing Lab: [address] [phone] [place] [address] [facility] CBC HEMOGLOBIN [MASS/VOLUM E] IN BLOOD 16.4 g/dL 13.1 - 16.8 10/09 Specimen Type: BLOOD No comment entered. Ordering Provider: JAIME MAC Report Released Date/Time: Sep 22, 2023 09:05 AM Reporting Lab: [address] [address] Performing Lab: [address] [phone] [place] [address] [facility] CBC HEMATOCRIT [VOLUME FRACTION] OF BLOOD 48.9 38.2 - 48.4 10/09 H Specimen Type: BLOOD No comment entered. Ordering Provider: JAIME MAC Report Released Date/Time: Sep 22, 2023 09:05 AM Reporting Lab: [place] [phone] Performing Lab: [address] [phone] [facility] CBC MCV [ENTITIC VOLUME] BY AUTOMATED COUNT 86.5 fL 80.0 - 100.0 10/09 Specimen Type: BLOOD No comment entered. Ordering Provider: JAIME MAC Report Released Date/Time: Sep 22, 2023 09:05 AM Reporting Lab: [place] [address] Performing Lab: [address] [facility] CBC MCH [ENTITIC MASS] BY AUTOMATED COUNT 29.0 pg 27.0 - 34.0 10/09 Specimen Type: BLOOD No comment entered. Ordering Provider: JAIME MAC Report Released Date/Time: Sep 22, 2023 09:05 AM Reporting Lab: [place] [address] Performing Lab: [address] [phone] [facility] CBC MCHC [MASS/VOLUM E] BY AUTOMATED COUNT 33.5 g/dL 33.0 - 36.0 10/09 Specimen Type: BLOOD No comment entered. Ordering Provider: JAIME MAC Report Released Date/Time: Sep 22, 2023 09:05 AM Reporting Lab: [place] [address] Performing Lab: [address] [facility] CBC PLATELETS [#/VOLUME] IN BLOOD BY AUTOMATED COUNT 297 10*3/u L 150 - 400 10/09 Specimen Type: BLOOD No comment entered. Ordering Provider: JAIME MAC Report Released Date/Time: Sep 22, 2023 09:05 AM Reporting Lab: [facility] [address] [place] [address] Performing Lab: [facility] [address] [place] [address] [facility] CBC PLATELET MEAN VOLUME [ENTITIC VOLUME] IN BLOOD BY AUTOMATED COUNT 10.2 fL 7.5 - 11.2 10/09 Specimen Type: BLOOD No comment entered. Ordering Provider: JAIME MAC Report Released Date/Time: Sep 22, 2023 09:05 AM Reporting Lab: [address] [address] Performing Lab: [address] [phone] [facility] CBC ERYTHROCYTE DISTRIBUTIO N WIDTH [RATIO] BY AUTOMATED COUNT 13.4 11.8 - 15.1 10/09 Specimen Type: BLOOD No comment entered. Ordering Provider: JAIME MAC Report Released Date/Time: Sep 22, 2023 09:05 AM Reporting Lab: [facility] [address] [place] [address] Performing Lab: [address] [phone] [place] [address] [facility] CBC LYMPHOCYTES /100 LEUKOCYTES IN BLOOD BY AUTOMATED COUNT 19 10/09 Specimen Type: BLOOD No comment entered. Ordering Provider: JAIME MAC Report Released Date/Time: Sep 22, 2023 09:05 AM Reporting Lab: [facility] [address] [facility] [address] Performing Lab: [facility] [place] [phone] [facility] CBC MONOCYTES/1 00 LEUKOCYTES IN BLOOD BY AUTOMATED COUNT 6 10/09 Specimen Type: BLOOD No comment entered. Ordering Provider: JAIME MAC Report Released Date/Time: Sep 22, 2023 09:05 AM Reporting Lab: [facility] [address] [facility] [address] Performing Lab: [facility] [address] [facility] [address] [facility] CBC NEUTROPHILS /100 LEUKOCYTES IN BLOOD BY AUTOMATED COUNT 72 10/09 Specimen Type: BLOOD No comment entered. Ordering Provider: JAIME MAC Report Released Date/Time: Sep 22, 2023 09:05 AM Reporting Lab: [address] [address] Performing Lab: [place] [address] [facility] [address] [facility] CBC EOSINOPHILS /100 LEUKOCYTES IN BLOOD BY AUTOMATED COUNT 1 10/09 Specimen Type: BLOOD No comment entered. Ordering Provider: JAIME MAC Report Released Date/Time: Sep 22, 2023 09:05 AM Reporting Lab: [address] [address] Performing Lab: [place] [address] [facility] [address] [facility] CBC BASOPHILS/1 00 LEUKOCYTES IN BLOOD BY AUTOMATED COUNT 1 10/09 Specimen Type: BLOOD No comment entered. Ordering Provider: JAIME MAC Report Released Date/Time: Sep 22, 2023 09:05 AM Reporting Lab: [place] [address] [facility] [address] Performing Lab: [place] [address] [facility] [address] [facility] CBC LYMPHOCYTES [#/VOLUME] IN BLOOD BY AUTOMATED COUNT 1.59 10*3/u L 0.77 - 4.50 10/09 Specimen Type: BLOOD No comment entered. Ordering Provider: JAIME MAC Report Released Date/Time: Sep 22, 2023 09:05 AM Reporting Lab: [address] [address] Performing Lab: [place] [address] [facility] [address] [facility] CBC MONOCYTES [#/VOLUME] IN BLOOD BY AUTOMATED COUNT 0.51 10*3/u L 0.19 - 0.80 10/09 Specimen Type: BLOOD No comment entered. Ordering Provider: JAIME MAC Report Released Date/Time: Sep 22, 2023 09:05 AM Reporting Lab: [address] [address] Performing Lab: [address] [address] [facility] CBC NEUTROPHILS [#/VOLUME] IN BLOOD BY AUTOMATED COUNT 5.97 10*3/u L 2.10 - 8.00 10/09 Specimen Type: BLOOD No comment entered. Ordering Provider: JAIME MAC Report Released Date/Time: Sep 22, 2023 09:05 AM Reporting Lab: [address] [address] Performing Lab: [address] [address] [facility] CBC EOSINOPHILS [#/VOLUME] IN BLOOD BY AUTOMATED COUNT 0.11 10*3/u L 0.00 - 0.60 10/09 Specimen Type: BLOOD No comment entered. Ordering Provider: JAIME MAC Report Released Date/Time: Sep 22, 2023 09:05 AM Reporting Lab: [address] [address] Performing Lab: 56 [address] [address] [facility] CBC BASOPHILS [#/VOLUME] IN BLOOD BY AUTOMATED COUNT 0.05 10*3/u L 0.00 - 0.20 10/09 Specimen Type: BLOOD No comment entered. Ordering Provider: JAIME MAC Report Released Date/Time: Sep 22, 2023 09:05 AM Reporting Lab: [address] [address] Performing Lab: [address] [address] [facility] LIPID PANEL (STL) CHOLESTEROL [MASS/VOLUM E] IN SERUM OR PLASMA 139 mg/dL 0 - 200 09/21 Specimen Type: PLASMA Comment: LDL calculation invalid when Triglyceride exceeds 250 mg/dl No hemolysis noted. Ordering Provider: JAIME MAC Report Released Date/Time: Sep 22, 2023 08:54 AM Reporting Lab: [address] [address] Performing Lab: [address] [address] [facility] LIPID PANEL (STL) TRIGLYCERID E [MASS/VOLUM E] IN SERUM OR PLASMA 331 mg/dL 0 - 150 09/21 H Specimen Type: PLASMA Comment: LDL calculation invalid when Triglyceride exceeds 250 mg/dl No hemolysis noted. Ordering Provider: JAIME MAC Report Released Date/Time: Sep 22, 2023 08:54 AM Reporting Lab: [address] [address] Performing Lab: [place] [address] [facility] [address] [facility] LIPID PANEL (STL) CHOLESTEROL IN LDL [MASS/VOLUM E] IN SERUM OR PLASMA BY CALCULATION commen tmg/dL 09/21 Specimen Type: PLASMA Comment: LDL calculation invalid when Triglyceride exceeds 250 mg/dl No hemolysis noted. Ordering Provider: JAIME MAC Report Released Date/Time: Sep 22, 2023 08:54 AM Reporting Lab: [facility] [address] [place] [phone] Performing Lab: [address] [address] [facility] LIPID PANEL (STL) CHOLESTEROL IN HDL [MASS/VOLUM E] IN SERUM OR PLASMA 39 mg/dL 40 09/21 L Specimen Type: PLASMA Comment: LDL calculation invalid when Triglyceride exceeds 250 mg/dl No hemolysis noted. Ordering Provider: JAIME MAC Report Released Date/Time: Sep 22, 2023 08:54 AM Reporting Lab: [facility] [address] [facility] [address] Performing Lab: [place] [address] [facility] [address] [facility] LIPID PANEL (STL) CHOLESTEROL IN LDL [MASS/VOLUM E] IN SERUM OR PLASMA BY DIRECT ASSAY 59 mg/dL 100 09/21 L Specimen Type: PLASMA Comment: LDL calculation invalid when Triglyceride exceeds 250 mg/dl No hemolysis noted. Ordering Provider: JAIME MAC Report Released Date/Time: Sep 22, 2023 08:54 AM Reporting Lab: [place] [address] [facility] [address] Performing Lab: [place] [address] [facility] [phone] [place] [address] [facility] COMPREHENS VIOLETTA METABOLIC PANEL CREATININE [MASS/VOLUM E] IN SERUM OR PLASMA 0.84 mg/dL 0.7 - 1.3 09/21 Specimen Type: PLASMA Comment: LDL calculation invalid when Triglyceride exceeds 250 mg/dl No hemolysis noted. Ordering Provider: JAIME MAC Report Released Date/Time: Sep 22, 2023 08:54 AM Reporting Lab: [address] [address] Performing Lab: [place] [address] [facility] [address] [facility] COMPREHENS VIOLETTA METABOLIC PANEL UREA NITROGEN [MASS/VOLUM E] IN SERUM OR PLASMA 17.7 mg/dL 9.0 - 25.0 09/21 Specimen Type: PLASMA Comment: LDL calculation invalid when Triglyceride exceeds 250 mg/dl No hemolysis noted. Ordering Provider: JAIME MAC Report Released Date/Time: Sep 22, 2023 08:54 AM Reporting Lab: [address] [address] Performing Lab: [address] [address] [facility] COMPREHENS VIOLETTA METABOLIC PANEL GLUCOSE [MASS/VOLUM E] IN SERUM OR PLASMA 208 mg/dL 72 - 99 09/21 H Specimen Type: PLASMA Comment: LDL calculation invalid when Triglyceride exceeds 250 mg/dl No hemolysis noted. Ordering Provider: JAIME MAC Report Released Date/Time: Sep 22, 2023 08:54 AM Reporting Lab: [facility] [address] [facility] [address] Performing Lab: [facility] [address] [facility] [address] [facility] COMPREHENS VIOLETTA METABOLIC PANEL SODIUM [MOLES/VOLU ME] IN SERUM OR PLASMA 137 meq/L 136 - 145 09/21 Specimen Type: PLASMA Comment: LDL calculation invalid when Triglyceride exceeds 250 mg/dl No hemolysis noted. Ordering Provider: JAIME MAC Report Released Date/Time: Sep 22, 2023 08:54 AM Reporting Lab: [facility] [address] [facility] [address] Performing Lab: [facility] [address] [facility] [address] [facility] COMPREHENS VIOLETTA METABOLIC PANEL POTASSIUM [MOLES/VOLU ME] IN SERUM OR PLASMA 3.9 meq/L 3.5 - 5 09/21 Specimen Type: PLASMA Comment: LDL calculation invalid when Triglyceride exceeds 250 mg/dl No hemolysis noted. Ordering Provider: JAIME MAC Report Released Date/Time: Sep 22, 2023 08:54 AM Reporting Lab: [facility] [address] [facility] [address] Performing Lab: [facility] [address] [facility] [address] [facility] COMPREHENS VIOLETTA METABOLIC PANEL CHLORIDE [MOLES/VOLU ME] IN SERUM OR PLASMA 105 meq/L 98 - 107 09/21 Specimen Type: PLASMA Comment: LDL calculation invalid when Triglyceride exceeds 250 mg/dl No hemolysis noted. Ordering Provider: JAIME MAC Report Released Date/Time: Sep 22, 2023 08:54 AM Reporting Lab: [facility] [address] [facility] [address] Performing Lab: [facility] [address] [facility] [address] [facility] COMPREHENS VIOLETTA METABOLIC PANEL CARBON DIOXIDE, TOTAL [MOLES/VOLU ME] IN SERUM OR PLASMA 20 meq/L 22 - 31 09/21 L Specimen Type: PLASMA Comment: LDL calculation invalid when Triglyceride exceeds 250 mg/dl No hemolysis noted. Ordering Provider: JAIME MAC Report Released Date/Time: Sep 22, 2023 08:54 AM Reporting Lab: [facility] [address] [facility] [address] Performing Lab: [facility] [address] [facility] [address] [facility] COMPREHENS VIOLETTA METABOLIC PANEL CALCIUM [MASS/VOLUM E] IN SERUM OR PLASMA 9.1 mg/dL 8.4 - 10.4 09/21 Specimen Type: PLASMA Comment: LDL calculation invalid when Triglyceride exceeds 250 mg/dl No hemolysis noted. Ordering Provider: JAIME MAC Report Released Date/Time: Sep 22, 2023 08:54 AM Reporting Lab: [facility] [address] [facility] [address] Performing Lab: [facility] [address] [facility] [address] [facility] COMPREHENS VIOLETTA METABOLIC PANEL PROTEIN [MASS/VOLUM E] IN SERUM OR PLASMA 7.0 g/dL 6 - 8.6 09/21 Specimen Type: PLASMA Comment: LDL calculation invalid when Triglyceride exceeds 250 mg/dl No hemolysis noted. Ordering Provider: JAIME MAC Report Released Date/Time: Sep 22, 2023 08:54 AM Reporting Lab: [facility] [address] [facility] [address] Performing Lab: [facility] [address] [facility] [address] [facility] COMPREHENS VIOLETTA METABOLIC PANEL ALBUMIN [MASS/VOLUM E] IN SERUM OR PLASMA 4.1 g/dL 3.4 - 5 09/21 Specimen Type: PLASMA Comment: LDL calculation invalid when Triglyceride exceeds 250 mg/dl No hemolysis noted. Ordering Provider: JAIME MAC Report Released Date/Time: Sep 22, 2023 08:54 AM Reporting Lab: [facility] [address] [facility] [address] Performing Lab: [place] [address] [facility] [phone] [facility] COMPREHENS VIOLETTA METABOLIC PANEL BILIRUBIN.T OTAL [MASS/VOLUM E] IN SERUM OR PLASMA 0.5 mg/dL 0.2 - 1.2 09/21 Specimen Type: PLASMA Comment: LDL calculation invalid when Triglyceride exceeds 250 mg/dl No hemolysis noted. Ordering Provider: JAIME MAC Report Released Date/Time: Sep 22, 2023 08:54 AM Reporting Lab: [address] [address] Performing Lab: [place] [address] [facility] [phone] [place] [address] [facility] COMPREHENS VIOLETTA METABOLIC PANEL ALKALINE PHOSPHATASE [ENZYMATIC ACTIVITY/VO LUME] IN SERUM OR PLASMA 94 U/L 40 - 150 09/21 Specimen Type: PLASMA Comment: LDL calculation invalid when Triglyceride exceeds 250 mg/dl No hemolysis noted. Ordering Provider: JAIME MAC Report Released Date/Time: Sep 22, 2023 08:54 AM Reporting Lab: [facility] [address] Performing Lab: [place] [address] [facility] [phone] [place] [address] [facility] COMPREHENS VIOLETTA METABOLIC PANEL ASPARTATE AMINOTRANSF ERASE [ENZYMATIC ACTIVITY/VO LUME] IN SERUM OR PLASMA 20 U/L 5 - 34 09/21 Specimen Type: PLASMA Comment: LDL calculation invalid when Triglyceride exceeds 250 mg/dl No hemolysis noted. Ordering Provider: JAIME MAC Report Released Date/Time: Sep 22, 2023 08:54 AM Reporting Lab: [facility] [address] [place] [phone] Performing Lab: [facility] [address] [facility] [address] [facility] COMPREHENS VIOLETTA METABOLIC PANEL ALANINE AMINOTRANSF ERASE [ENZYMATIC ACTIVITY/VO LUME] IN SERUM OR PLASMA 22 U/L 8 - 40 09/21 Specimen Type: PLASMA Comment: LDL calculation invalid when Triglyceride exceeds 250 mg/dl No hemolysis noted. Ordering Provider: JAIME MAC Report Released Date/Time: Sep 22, 2023 08:54 AM Reporting Lab: [facility] [address] [facility] [address] Performing Lab: [facility] [address] [facility] [address] [facility] COMPREHENS VIOLETTA METABOLIC PANEL GLOMERULAR FILTRATION RATE/1.73 SQ M.PREDICTED [VOLUME RATE/AREA] IN SERUM, PLASMA OR BLOOD BY CREATININE- BASED FORMULA (CKD-EPI 2020) 104.3 60 09/21 Specimen Type: PLASMA Comment: LDL calculation invalid when Triglyceride exceeds 250 mg/dl No hemolysis noted. Ordering Provider: JAIME MAC Report Released Date/Time: Sep 22, 2023 08:54 AM Reporting Lab: [facility] [address] [facility] [address] Performing Lab: [place] [address] [facility] [phone] [place] [address] [facility] Vital Signs Combined list of inpatient and outpatient Vital Signs from Department of Defense and Veterans Affairs, ranging from 12 months to all on record, depending upon the facility. Vital Sign Value Date Comments Source SYSTOLIC BLOOD PRESSURE 126 10/09/2024 10:24:09 [facility] DIASTOLIC BLOOD PRESSURE 81 10/09/2024 10:24:09 [facility] PULSE OXIMETRY 96 % 10/09/2024 10:24:09 [facility] WEIGHT 260.1 10/09/2024 10:24:09 [facility] BMI 36 kg/m2 10/09/2024 10:24:09 [facility] PAIN 1 10/09/2024 10:24:09 [facility] TEMPERATURE 98.8 10/09/2024 10:24:09 [facility] PULSE 94 10/09/2024 10:24:09 [facility] RESPIRATION 20 10/09/2024 10:24:09 [facility] WEIGHT 262.5 12/13/2023 14:50:00 [facility] BMI 37 kg/m2 12/13/2023 14:50:00 [facility] Encounters Combined list of: 1) Encounters from Department of [facility] facilities going backup to the last 18 months, not all VA inpatient encounters are included; 2) Encounters from the Department of [facility] facilities going backup to 280 months. Location Location Details Encounter Type Encounter Number Reason For Visit Attending Provider ADM Date DC Date Status Disposition Source [facility] Outpatient Encounter [id number] 09/21 [facility] OFFICE O/P NEW MOD 45 MIN [id number] Diagnos is: ICD-10- CM E11.9 Type 2 diabete s mellitu s without complic ations [place] MAC ODD 09/21 [facility] Outpatient Encounter [id number] 09/22 [facility] Outpatient Encounter [id number] ESTEFANIAT ODD 09/22 [facility] Outpatient Encounter [id number] ESTEFANIAT ODD 09/27 [facility] Outpatient Encounter [id number] [facility]OC SANDERS O 10/24 [facility] Outpatient Encounter [id number] 10/27 [facility] MTMS BY PHARM ADDL 15 MIN [id number] Diagnos is: ICD-10- CM E11.9 Type 2 diabete s mellitu s without complic ations Carine RIZOIN B 10/27 [facility] QNHP OL DIG ASSMT&MGMT 5-10 [id number] Diagnos is: ICD-10- CM E11.9 Type 2 diabete s mellitu s without complic ations JOSH LANGE 11/01 [facility] MTMS BY PHARM EST 15 MIN [id number] Diagnos is: ICD-10- CM E11.9 Type 2 diabete s mellitu s without complic ations Carine RIZO JAVAN B 11/09 [facility] Outpatient Encounter [id number] 11/14 [facility] [place] [id number] Diagnos is: ICD-10- CM E11.9 Type 2 diabete s mellitu s without complic ations KIM GONZALEZ 12/12 [facility] MTMS BY PHARM EST 15 MIN [id number] Diagnos is: ICD-10- CM E11.9 Type 2 diabete s mellitu s without complic ations Carine RIZO JAVAN B 12/23 [facility] Outpatient Encounter [id number] 01/11 [facility] MTMS BY PHARM EST 15 MIN [id number] Diagnos is: ICD-10- CM E11.9 Type 2 diabete s mellitu s without complic ations Carine RIZO JAVAN B 01/18 [facility] PSYTX W PT 30 MINUTES [id number] Diagnos is: ICD-10- CM F43.20 Adjustm ent disorde r, unspeci Chai Castro 02/23 [facility] MTMS BY PHARM EST 15 MIN [id number] Diagnos is: ICD-10- CM E11.9 Type 2 diabete s mellitu s without complic ations Carine RIZO B 05/23 [facility] Outpatient Encounter [id number] 10/06 [facility] Outpatient Encounter [id number] 10/09 [facility] OFFICE O/P EST MOD 30 MIN [id number] Diagnos is: ICD-10- CM E11.9 Type 2 diabete s mellitu s without complic ations MAC,T ODD 10/09 [facility] Outpatient Encounter [id number] 10/16 [facility] OFFICE O/P EST MOD 30 MIN [id number] Diagnos is: ICD-10- CM D48.5 Neoplas m of uncerta in behavio r of skin Eitan SPEARS 10/16 [facility] Outpatient Encounter [id number] Carine CORREA 10/16 [facility] En[facility] [id number] ROHIT CONDE 10/19 [facility] Outpatient Encounter [id number] SUAD OSORIO 10/25 [facility] Procedures Combined list of: 1) Procedures from Department of [facility] facilities going back up to thelast 18 months, not all VA non-surgical procedures are included; 2) All procedures from the Department of Defense facilities. Procedure Procedure Type Code Date Perfomer Comments Sourc e TYPHOID VACCINE, CAPSULAR POLYSACCHARIDE (VICPS), FOR INTRAMUSCULAR USE 03/18/2000 [facility] PHARMACOLOGIC MANAGEMENT, INCLUDING PRESCRIPTION, USE, AND REVIEW OF MEDICATION WITH NO MORE THAN MINIMAL MEDICAL PSYCHOTHERAPY 11/26/1999 [facility] PHARMACOLOGIC MANAGEMENT, INCLUDING PRESCRIPTION, USE, AND REVIEW OF MEDICATION WITH NO MORE THAN MINIMAL MEDICAL PSYCHOTHERAPY 11/14/1999 [facility] THERAPEUTIC PROCEDURE, 1 OR MORE AREAS, EACH 15 MINUTES; THERAPEUTIC EXERCISES TO DEVELOP STRENGTH AND ENDURANCE, RANGE OF MOTION AND FLEXIBILITY 11/12/1999 [facility] APPLICATION OF A MODALITY TO 1 OR MORE AREAS; HOT OR COLD PACKS 11/11/1999 [facility] APPLICATION OF A MODALITY TO 1 OR MORE AREAS; HOT OR COLD PACKS 11/10/1999 [facility] PHARMACOLOGIC MANAGEMENT, INCLUDING PRESCRIPTION, USE, AND REVIEW OF MEDICATION WITH NO MORE THAN MINIMAL MEDICAL PSYCHOTHERAPY 11/07/1999 [facility] PURE TONE AUDIOMETRY (THRESHOLD); AIR ONLY 10/11/2001 [facility] SKIN TEST; TUBERCULOSIS, INTRADERMAL 06/07/2001 [facility] EDUCATIONAL SUPPLIES, SUCH A S BOOKS, TAPES, AND PAMPHLETS, FOR THE PATIENT'S EDUCATION AT COST TO PHYSICIAN OR OTHER QUALIFIED HEALTH PUBLIC DEFENDER 05/26/2001 [facility] PHYS/OTH QUALIFIED HEALTH PUBLIC DEFENDER QUALIFIED,EDUCATION,TRAIN,LIC ENSURE/REGULATION (WHEN APPLICABLE) EDUC SER RENDERED TO PATS IN A GRP SETTING (EG,,OBESITY,OR DIABETIC INSTRUCT) 05/24/2001 [facility] PURE TONE AUDIOMETRY (THRESHOLD); AIR ONLY 03/16/2001 [facility] THERAPEUTIC, PROPHYLACTIC OR DIAGNOSTIC INJECTION (SPECIFY MATERIAL INJECTED); SUBCUTANEOUS OR INTRAMUSCULAR 03/15/2001 [facility] APPLICATION OF FINGER SPLINT ; STATIC 09/06/2003 [facility] DEBRIDEMENT OF EXTENSIVE ECZEMATOUS OR INFECTED SKIN; UP TO 10% OF BODY SURFACE 08/30/2003 [facility] DEBRIDEMENT OF EXTENSIVE ECZEMATOUS OR INFECTED SKIN; UP TO 10% OF BODY SURFACE 08/28/2003 [facility] SIMPLE REPAIR OF SUPERFICIAL WOUNDS OF SCALP, NECK, AXILLAE, EXTERNAL GENITALIA, TRUNK AND/OR EXTREMITIES (INCLUDING HANDS AND FEET); 2.6 CM TO 7.5 CM 08/24/2003 [facility] URINALYSIS; QUALITATIVE OR SEMIQUANTITATIVE, EXCEPT IMMUNOASSAYS 08/16/2003 [facility] SKIN TEST; TUBERCULOSIS, INTRADERMAL 08/16/2003 [facility] COLLECTION OF VENOUS BLOOD B Y VENIPUNCTURE 08/14/2003 [facility] PURE TONE AUDIOMETRY (THRESHOLD); AIR ONLY 08/14/2003 [facility] SKIN TEST; TUBERCULOSIS, INTRADERMAL 08/14/2003 [facility] UNCLASSIFIED DRUGS 07/28/2003 [facility] INFLUENZA VIRUS VACCINE, TRIVALENT (IIV3), SPLIT VIRUS, 0.5 ML DOSAGE, FOR INTRAMUSCULAR USE 04/06/2003 [facility] TOBACCO COUNSELING 11/13/2002 [facility] OPHTHALMOLOGICAL EXAMINATION AND EVALUATION, UNDER GENERAL ANESTHESIA, WITH OR WITHOUT MANIPULATION OF GLOBE FOR PASSIVE RANGE OF MOTION OR OTHER MANIPULATION TO FACILITATE DIAGNOSTIC EXAM; LIMITED 08/10/2002 [facility] PURE TONE AUDIOMETRY (THRESHOLD); AIR ONLY 07/24/2002 [facility] OPHTHALMOLOGICAL EXAMINATION AND EVALUATION, UNDER GENERAL ANESTHESIA, WITH OR WITHOUT MANIPULATION OF GLOBE FOR PASSIVE RANGE OF MOTION OR OTHER MANIPULATION TO FACILITATE DIAGNOSTIC EXAM; LIMITED 07/24/2002 [facility] POSTOPERATIVE FOLLOW-UP VISIT, NORMALLY INCLUDED IN THE SURGICAL PACKAGE, INDICATE THAT EVALUATION & MANAGEMENT SERVICE WAS PERFORMED DURING A POSTOPERATIVE PERIOD REASON RELATED ORIGINAL PROCEDURE 05/18/2002 [facility] CLOSED TREATMENT OF DISTAL PHALANGEAL FRACTURE, FINGER OR THUMB; WITHOUT MANIPULATION, EACH 05/11/2002 [facility] DRESSINGS AND/OR DEBRIDEMENT OF PARTIAL-THICKNESS HUYNH, INITIAL OR SUBSEQUENT; MEDIUM (EG, WHOLE FACE OR WHOLE EXTREMITY, OR 5% TO 10% TOTAL BODY SURFACE AREA) 05/04/2002 [facility] MUSCLE TESTING, MANUAL (SEPARATE PROCEDURE); HAND (WITH OR WITHOUT COMPARISON WITH NORMAL SIDE) 05/04/2002 [facility] Social History Combined list of available smoking, tobacco, and other social history from Department of Defense and Veterans Affairs facilities. Social History Type Response Date Comment Sourc e Tobacco smoking status NHIS VA-TOBACCO USE FORMER CIGARETTES 10/09/2024 [facility] History of tobacco use VA-TOBACCO NEVER USED OTHER TYPE 10/09/2024 [facility] History of tobacco use VA-TOBACCO USER SOME DAYS 09/22/2023 [facility] History of tobacco use TOBACCO USER OFFERED MEDS 08/03/2017 [facility] History of tobacco use TOBACCO USER OFFERED MEDS 08/03/2017 [facility] History of tobacco use TOBACCO OFFERED PT MEDS (PROVIDER) 12/05/2012 [facility] History of tobacco use LIFETIME NON-USER OF TOBACCO 11/23/2012 [facility] This section is an empty social history section. [facility]
--- OUTSIDE RECORDS SUMMARY | 2024-11-05 10:54 | XMS_ITS | Clinical Summary ---
Author Organization [facility] Address [address] [place] [address] Care Team Providers Care Foundry Engineer Name Role Phone Unavailable Primary Care Provider Unavailabl e Source Comments [facility],non-owned Affiliates and Associated Physician Practices is amultiple site organization consisting of ambulatory clinics and hospital sitesin [place], [place], [place] and [place]. This disclosure is being madepursuant to the Care Everywhere program and may not contain all information available regarding this patient. Last updated 18.[facility] Allergies Active Allergy Reactions Criticality Noted Date Comments Metformin 10/08/2016 Other reaction(s): Vomiting Medications * Be aware that medications may not be up to date on this document. Alwaysverify current medications with the patient. fluticasone propionate (FLONASE) 50 MCG/ACT nasal spray [place] 2 Sprays into each nostril once daily 1 Bottle 6 Active albuterol HFA (PROVENTIL;BEV ADDIE;PROAIR) 108 (90 BASE) MCG/ACT inhalerIndicatio ns:Acute upper respiratory infection Inhale 2 Puffs by mouth every 6 hours as needed for Shortness of Breath, Wheezing or Cough 1 Inhaler 7 Active Active Problems Problem Noted Date Diagnosed Date Heart palpitations 03/01/2014 Family History Medical History Relation Name Comments Diabetes Father Hypercholesterolemia Father Hypertension Father Hypertension Mother Stroke Paternal Grandfather Stroke Paternal Grandmother Relation Name Status Comments Father Mother Paternal Grandfather Paternal Grandmother Social History Tobacco Use Types Packs/Day Years Used Date Smoking Tobacco: Every Day Cigarettes 0.5 20 Tobacco Cessation:Ready to Q uit: Yes; Counseling Given: Yes Alcohol Use Standard Drinks/Week Comments Not Asked 0 (1 standard drink = 0.6 oz pur e alcohol) Sex and Gender Information Value Date Recorded Sex Assigned at Not on file Legal Sex Male 6:42 AM DEVELOPMENT GEOLOGIST Gender Identity Not on file Sexual Orientation Not on file Last Filed Vital Signs Vital Sign Reading Time Taken Comments Blood Pressure 132/82 10/22/2016 5:14 PM CDT Pulse 99 10/22/2016 5:14 PM CDT Temperature 36.9 C (98.5 F) 10/22/2016 5:14 PM CDT Respiratory Rate 16 03/01/2014 4:38 PM DEVELOPMENT GEOLOGIST Oxygen Saturation 98% 10/22/2016 5:14 PM CDT Inhaled Oxygen Concentration - - Weight 122.5 kg (270 lb) 10/22/2016 5:14 PM CDT Height 180.3 cm (5' 11) 10/22/2016 5:14 PM CDT Body Mass Index 37.66 10/22/2016 5:14 PM CDT Plan of Treatment Health Maintenance Due Date Last Done Comments COLOGUARD (AGES 45-75) - COL ON CA SCREENING 1969 COLON MONITORING 1969 COLONOSCOPY - COLON CA SCREENING 1969 CT COLONOGRAPHY - COLON CA SCREENING 1969 Colorectal Cancer Screening 1969 FIT - COLON CA SCREENING 1969 FLEX SIG - COLON CA SCREENING 1969 HIV SCREENING 1984 HEPATITIS C SCREENING 09/19/1987 DTAP/TDAP/TD VACCINES (1 - Tdap) 1988 HEPATITIS B VACCINE (1 of 3 - 19+ 3-dose series) 1988 LIPID TESTING 03/01/2019 03/01/2014 PNEUMOCOCCAL VACCINE 50+ (1 of 1 - PCV) 09/24/2019 ZOSTER VACCINE (1 of 2) 09/24/2019 COVID-19 VACCINE ( - 2023-2 5 season) 2023 DEPRESSION SCREENING 04/19/2024 INFLUENZA VACCINE (#1) 2024 HIB VACCINE Aged Out No longer eligi ble based on patient's age to complete this topic HPV VACCINE Aged Out No longer eligi ble based on patient's age to complete this topic MENINGOCOCCAL (Group B) VACC INE SHARED DECISION-MAKING Aged Out No longer eligibl e based on patient's age to complete this topic MENINGOCOCCAL GROUPS A/C/Y/W VACCINE Aged Out No longer eligible b ased on patient's age to complete this topic Procedures Procedure Name Priority Date/Time Associated Diagnosis Comments LIPID PROFILE Add on 03/01/2014 6:54 AM DEVELOPMENT GEOLOGIST Chest pain Near syncope from Last 3 Months or Most Recently Relevant to Health Maintenance Results * (ABNORMAL) LIPID PROFILE (03/01/2014 6:54 AM DEVELOPMENT GEOLOGIST) Cholesterol 233(H) <200 mg/dL 03/01/2014 10:07 AM DEVELOPMENT GEOLOGIST [facility] Triglycerides 529(H) <150 mg/dL 03/01/2014 10:07 AM [facility] HDL Cholesterol 47 >40 mg/dL 03/01/2014 10:07 AM [facility] LDL Calculated <130 mg/dL 03/01/2014 10:07 AM [facility] Comment:Unable to calculate LDL due to elevated Triglycerides, please consider ordering a Direct LDL. VLDL Calculated <=30 mg/dL 03/01/2014 10:07 AM [facility] Comment:Unable to calculate LDL due to elevated Triglycerides, please consider ordering a Direct LDL. Chol HDL Ratio 5.0(H) <4.5 03/01/2014 10:07 AM [facility] Blood BLOOD SPECIMEN / Unknown 03/01/2014 6:54 AM DEVELOPMENT GEOLOGIST 03/01/2014 6:58 AM DEVELOPMENT GEOLOGIST Sebastian Kumar MD LAB - CHEMISTRY ORDERABLES nal Result [facility] [address] [place] [address] from Last 3 Months or Most Recently Relevant to Health Maintenance Insurance [facility] Advance Directives * Full Code (Latest Code Status on File) Date Activated Date Inactivated Comments 03/01/2014 4:35 PM 03/01/2014 8:15 PM
--- OUTSIDE RECORDS SUMMARY | 2024-11-05 10:54 | XMS_ITS | Encounter Summary ---
Author Organization [facility] Address [address] [place] [address] Phone Care Team Providers Care Appraiser Irrigation Tax Name Role Phone Kris Perla MD Primary Care Provider [phone] Chas Thurman MD Unavailable Reason for Visit * Reason Comments Medication Refill Encounter Details Date Type Department Care Team (Late st Contact Info) Description 05/19/2023 Refill [facility] - Family Medicine [facility] [address] [place] [address] Kris Perla MD [address] [address] Medication Refill Social History Tobacco Use Types [...] Telephone Encounter - Kelly Flower RN - 05/21/2023 9:47 AM CST New Rx 03/30/23 - continue current dose Per nursing clinical judgement, provider to review and approve the medication(s) order(s) if appropriate. Requested Prescriptions Pending Prescriptions Disp Refills Mounjaro 2.5 MG/0.5ML Solution Pen-injector [Pharmacy Med Name: MOUNJARO 2.5 MG/0.5 ML PEN] 2 mL 0 Sig: INJECT 2.5 MG BY SUBCUTANEOUS ROUTE EVERY 7 DAYS. GLP-1 Agonists Protocol Passed - 05/19/2023 4:02 PM Passed - Lipid panel result on file in past 12 months LDL Date Value Ref Range Status 03/30/2023 Final Comment: Unable to calculate LDL when Triglycerides are greater than 400. Direct measurement of LDL is available upon request as a separate test. HDL CHOLESTEROL Date Value Ref Range Status 03/30/2023 34 (L) >40 mg/dL Final CHOLESTEROL Date Value Ref Range Status 03/30/2023 152 <200 mg/dL Final TRIGLYCERIDES Date Value Ref Range Status 03/30/2023 768 (H) <150 mg/dL Final VLDL Date Value Ref Range Status 03/30/2023 Final Comment: Cannot be calculated due to Hypertriglyceridemia. CHOL/HDL RATIO Date Value Ref Range Status 03/30/2023 4.5 (H) 0.0 - 4.4 Final NON-HDL CHOLESTEROL Date Value Ref Range Status 03/30/2023 118 <130 mg/dL Final Passed - Visit with relevant provider in past 6 months or upcoming 90 days Recent Visits Date Type Provider Dept 03/30/23 Office Visit Kris Perla MD [facility] Showing recent visits within past 182 days and meeting all other requirements Future Appointments Date Type Provider Dept 07/27/23 Appointment Kris Perla MD [facility] Showing future appointments within next 90 days and meeting all other requirements Passed - HgA1C result on record in past 6 months HGB-A1C Date Value Ref Range Status 08/10/2022 8.4 (A) 4 - 6 % Final HGB-A1C Date Value Ref Range Status 03/30/2023 10.0 (H) 4.0 - 6.0 % Final Passed - GFR on record in past 6 months GFR, EST. NONAFRICAN Date Value Ref Range Status 03/30/2023 >60 >=60 Final TRIPPER OPERATOR documented in this encounter Plan of Treatment Not on file documented as of this encounter Visit Diagnoses Not on filedocumented in this encounter Additional Health Concerns Assessment Noted Time PHQ-9 Depression Total Score: 0 01/24/20 21 3:00 PM CDT documented as of this encounter Care Teams Appraiser Irrigation Tax Relationship Specialty Start Date End Date Kris Perla MD [address] [facility] [address] [place] [address] PCP - General Family Medicine 03/15/15 Chas Thurman MD [address] [facility] [address] [place] [address] Consulting Physician Colon and Rectal Surgery 03/18/22 documented as of this encounter
--- OUTSIDE RECORDS SUMMARY | 2024-11-05 10:54 | XMS_ITS | Encounter Summary ---
Author Name [facility] [place] [facility] [place] Address [address] [place] [address] Care Team Providers Care Rn Acute Dialysis Name Role Phone DELLA MAC Primary Care Provider Unavailabl e Insurance Providers: All historical and current Section Date Range: From patient's date of to the date document was created. This section includes the names of all active insurance providers for the patient. Insurance Provider Type of Coverage Plan Name Start of Policy Coverage End of Policy Coverage Group Number Member ID Insurance Provider's Telephone Number Policy Duran's Name Patient's Relationship to Policy Duran [place] PREFERRED PROVIDER ORGANIZAT ION (PPO) BOEIN G ADVAN TAGE/ HE May 20, 2020 [id number] [phone] KENDALL,D AVID PATIENT [place] PREFERRED PROVIDER ORGANIZAT ION (PPO) BOEIN G ADVAN TAGE+ H May 20, 2020 [id number] [phone] KENDALL,D AVID PATIENT [place] PREFERRED PROVIDER ORGANIZAT ION (PPO) BOEIN G ADVAN TAGE+ HE May 20, 2020 [id number] [phone] KENDALL,D AVID PATIENT [place] PREFERRED PROVIDER ORGANIZAT ION (PPO) BOEIN G ADVAN TAGE+ H May 20, 2020 [id number] [phone] KENDALL,D AVID PATIENT [facility] RX PRESCRIPT ION [facility] Apr 19, 2017 [facility] [id number] [phone] KENDALL,D AVID PATIENT PRIME THERAPEUTI CS RX PRESCRIPT ION BOEIN G May 20, 2020 [facility] [id number] [phone] KENDALL,D AVID PATIENT [facility] Apr 19, 2017 [id number] [phone] KENDALL,D AVID PATIENT [facility] PREFERRED PROVIDER ORGANIZAT ION (PPO) [facility] Apr 19, 2017 [id number] [phone] KENDALL,D AVID PATIENT Selected Encounter This section includes the information on record at [place] for the Encounter. Date/Time Encounter Type Encounter Description Reason Provider Source Oct 16, 2024 09:30 AM OFFICE O/P EST MOD 30 MIN DERMATOLOGY ICD-10-CM D48.5 Neoplasm of uncertain behavior of skin CHRIS SPEARS Brendan Encounter Template Text not used by [place] Assessments - Encounter Diagnoses This section includes the primary and secondary diagnoses documented for the Encounter. Date/Time Primary/Secondary Diagnosis Diagnosis Name Provider Source Oct 25, 2024 09:12 AM PRIMARY Neoplasm of uncertain behavior of skin [facility] Oct 25, 2024 09:12 AM SECONDARY Encounter for screening for malignant neoplasm of skin [facility] Oct 25, 2024 09:12 AM SECONDARY Other melanin hyperpigmentation [facility] Oct 25, 2024 09:12 AM SECONDARY Other seborrheic keratosis [facility] Oct 25, 2024 09:12 AM SECONDARY Pruritus, unspecified [facility] Lab Results: +/- 30 days of the encounter This section includes the Chemistry and Hematology Lab Results on record with [place] for the patient. Radiology Reports and Pathology Reports are provided separately, in subsequent sections. Lab Results This section contains the Chemistry/Hematology Results that were resulted 30 days before or 30 daysafter the date of the Encounter. Date/Time Source Result Type Result - Unit Interpretation Reference Range Specimen Type Comment Oct 09, 2024 11:22 AM [facility] TSH W/ REFLEX FT4 (STL) PLASMA Specimen Type: PLASMA Comment: No hemolysis noted. Ordering Provider: DELLA MAC Report Released Date/Time: Sep 22, 2023 09:05 AM Reporting Lab: [address] [address] Performing Lab: [address] [address] TSH 0.416 u[IU]/mL L 0.47-5 FREE T4(REFLEX) 1.07 ng/mL 0.7-1.48 Oct 09, 2024 11:22 AM [facility] CB PROST. SPECIFIC AG.(PB-STL) SERUM Specimen Ty pe: SERUM Comment: The listed sex of this patient may not be a typical indication for this test. Therefore, reference ranges or interpretive criteria listed may not be valid. Clinical correlation suggested. Ordering Provider: DELLA MAC Report Released Date/Time: Sep 22, 2023 09:05 AM Reporting Lab: [address] [phone] Performing Lab: [address] [address] PROST. SPECIFIC AG.(PB-STL) 0.429 ng/mL 0-4 Oct 09, 2024 11:22 AM [facility] CB MICRAL/CREAT PROFILE (STL) URINE Specimen Typ e: URINE No comment entered. Ordering Provider: DELLA MAC Report Released Date/Time: Sep 22, 2023 09:05 AM Reporting Lab: [address] [address] Performing Lab: [address] [address] URINE ALBUMIN (PB-STL) 8.5 mg/L uACR (STL) 9 mg/g 0-29 CREATININE URINE/OTHERS 89.6 mg/dL 63-16 6 Oct 09, 2024 11:22 AM [facility] LIPID PANEL (STL) PLASMA Specimen Ty pe: PLASMA Comment: No hemolysis noted. Ordering Provider: DELLA MAC Report Released Date/Time: Sep 22, 2023 09:05 AM Reporting Lab: [address] [address] Performing Lab: [address] [address] CHOLESTEROL 131 mg/dL 0-200 TRIGLYCERIDE 183 mg/dL H 0-150 CALCULATED LDL 49 mg/dL HDL(New) 45 mg/dL >40 Oct 09, 2024 11:22 AM [facility] COMPREHENSIVE METABOLIC PANEL PLASMA Specimen Type: PLASMA Comment: No hemolysis noted. Ordering Provider: DELLA MAC Report Released Date/Time: Sep 22, 2023 09:05 AM Reporting Lab: [address] [address] Performing Lab: [address] [address] CREATININE 0.68 mg/dL L 0.7-1.3 UREA NITROGEN 12.8 mg/dL 9.0-25.0 GLUCOSE 134 mg/dL H 72-99 SODIUM 138 meq/L 136-145 POTASSIUM 4.2 meq/L 3.5-5 CHLORIDE 108 meq/L H 98-107 CARBON DIOXIDE 21 meq/L L 22-31 CALCIUM 9.4 mg/dL 8.4-10.4 PROTEIN 7.3 g/dL 6-8.6 ALBUMIN 4.4 g/dL 3.4-5 TOTAL BILIRUBIN 0.4 mg/dL 0.2-1.2 ALKALINE PHOSPHATASE 85 U/L 40-150 AST/SGOT 23 U/L 5-34 ALT/SGPT 26 U/L 8-40 EGFR (CKD-EPI 2020) 109.8 >60 Oct 09, 2024 11:22 AM [facility] HGA1C BLOOD Specimen Type: BLOOD No comment entered. Ordering Provider: DELLA MAC Report Released Date/Time: Sep 22, 2023 09:05 AM Reporting Lab: [address] [address] Performing Lab: [address] [place] [address] HGA1C 8.4 H 4.0-6.0 Oct 09, 2024 11:22 AM [facility] VITAMIN D, 25-HYDROXY SERUM Specime n Type: SERUM Comment: The listed sex of this patient may not be a typical indication for this test. Therefore, reference ranges or interpretive criteria listed may not be valid. Clinical correlation suggested. Ordering Provider: DELLA MAC Report Released Date/Time: Sep 22, 2023 09:05 AM Reporting Lab: [address] [address] Performing Lab: [address] [address] VITAMIN D, 25-HYDROXY 18.2 ng/mL L 30-96 Oct 09, 2024 11:22 AM [facility] CBC BLOOD Specimen Type: BLOOD No comment entered. Ordering Provider: DELLA MAC Report Released Date/Time: Sep 22, 2023 09:05 AM Reporting Lab: [address] [address] Performing Lab: [address] [address] WBC 8.3 10*3/uL 3.6-11.2 RBC 5.65 10*6/uL 4.10-5.70 HGB 16.4 g/dL 13.1-16.8 HCT 48.9 H 38.2-48.4 MCV 86.5 fL 80.0-100.0 MCH 29.0 pg 27.0-34.0 MCHC 33.5 g/dL 33.0-36.0 PLT 297 10*3/uL 150-400 MPV 10.2 fL 7.5-11.2 RDW 13.4 11.8-15.1 LYMPHOCYTES, AUTO % 19 MONOCYTES, AUTO % 6 NEUTROPHILS, AUTO % 72 EOSINOPHILS, AUTO % 1 BASOPHILS, AUTO % 1 LYMPHOCYTES, ABSOLUTE 1.59 10*3/uL 0.77- 4.50 MONOCYTES, ABSOLUTE 0.51 10*3/uL 0.19-0. 80 NEUTROPHILS, ABSOLUTE 5.97 10*3/uL 2.10- 8.00 EOSINOPHILS, ABSOLUTE 0.11 10*3/uL 0.00- 0.60 BASOPHILS, ABSOLUTE 0.05 10*3/uL 0.00-0. 20 Social History: Smoking Status (Most current) and Tobacco Use (All prior to encounter date) This section includes the most current, and the historical, smoking and tobacco- related health factors from the [place] facility where the Encounter took place. Current Smoking Status This section includes the most current smoking, or tobacco-related health factor, from the [place] facility where the Encounter took place. Date/Time Current Smoking Status Comment Facil ity Dec 05, 2012 11:04 AM TOBACCO OFFERED PT MEDS (PROVIDER) [facility] Tobacco Use History This section includes a history of the smoking, or tobacco-related health factors, that were collected on or before the date of the Encounter. The data comes from the [place] facility where the Encounter took place. Date/Time Smoking Status/Tobacco Use Comment F acbriana Dec 05, 2012 11:04 AM TOBACCO OFFERED PT MEDS (PROVIDER) [facility] Pathology Reports: +/- 30 days of the encounter Pathology Reports For cases when an order for pathology services may have been completed prior to the date of the Encounter, the report list includes the Pathology Reports that were completed up to 30 days before dateof the Encounter. For cases when an order for pathology services may have been completed after the date of the Encounter, the report list also includes the Pathology Reports that were completed up to30 days after date of the Encounter. The data comes from all [place] treatment facilities. Date/Time Pathology Report Provider Source Oct 25, 2024 11:32 AM [facility] REPORT: LOCAL TITLE: LR SURGICAL PATHOLOGY REPORT STANDARD TITLE: PATHOLOGY PROCEDURE NOTE DATE OF NOTE: OCT 25, 2024@11:32:07 ENTRY DATE: OCT 25, 2024@11:32:07 AUTHOR: AGUSTÍN PAREKH EXP COSIGNER: URGENCY: STATUS: COMPLETED $APHDR - - - - - - - - - - - - - - - - - - - - - - - - - - - - - - - - - - - - - - - - MEDICAL RECORD SURGICAL PATHOLOGY - - - - - - - - - - - - - - - - - - - - - - - - - - - - - - - - - - - - - - - - PATHOLOGY REPORT Accession No. SP [id number] - - - - - - - - - - - - - - - - - - - - - - - - - - - - - - - - - - - - - - - - $TEXT Submitted by: SABINO GUTIÉRREZ Date obtained: Oct 16, 2024 - - - - - - - - - - - - - - - - - - - - - - - - - - - - - - - - - - - - - - - - Specimen (Received Oct 17, 2024 09:48): A. RIGHT BACK SHAVE BIOPSY - - - - - - - - - - - - - - - - - - - - - - - - - - - - - - - - - - - - - - - - BRIEF CLINICAL HISTORY: Changing spot - - - - - - - - - - - - - - - - - - - - - - - - - - - - - - - - - - - - - - - - PREOPERATIVE DIAGNOSIS: R/o melanoma - - - - - - - - - - - - - - - - - - - - - - - - - - - - - - - - - - - - - - - - OPERATIVE FINDINGS: R/o melanoma - - - - - - - - - - - - - - - - - - - - - - - - - - - - - - - - - - - - - - - - POSTOPERATIVE DIAGNOSIS: R/o melanoma Surgeon/physician: CHRIS SPEARS MD =-=-=-=-=-=-=-=-=-=-=-=-=-=-=- =-=-=-=-=-=-=-=-=-=-=-=-=-=-=- =-=-=-=-=-=-=-=-=-= - - - - - - - - - - - - - - - - - - - - - - - - - - - - - - - - - - - - - - - - PATHOLOGY REPORT Accession No. SP [id number] - - - - - - - - - - - - - - - - - - - - - - - - - - - - - - - - - - - - - - - - GROSS DESCRIPTION: Henrietta Ley, 10/17/2024 Received in formalin in a container labeled with the patient's full name, SSN, and Right Back is a delgado skin shave biopsy measuring 1.7 x 1.0 x 0.1 cm. On the skin surface is a brown macule. The resection margin is inked, and the tissue is serially sectioned into five pieces and submitted entirely in A1. MICROSCOPIC EXAM: [Dr. Carlos Alberto Parekh 10-25-2024] Microscopic examination substantiates the cited diagnosis. [place]field-1/Melan-A immunostain highlight the melanocytes without evidence of significant confluent lentiginous hyperplasia nor significant pagetoid spread. DIAGNOSIS: SKIN, RIGHT BACK, SHAVE BIOPSY - COMPOUND MELANOCYTIC NEVUS WITH ARCHITECTURAL DISORDER /glen/ AGUSTÍN PAREKH MD DERMATOLOGY & DERMATOPATHOLOGY Signed Oct 25, 2024@11:32 Performing Laboratory: Surgical Pathology Report Performed By: [address] CLIA# [id number] [address] [place] [id number] $FTR - - - - - - - - - - - - - - - - - - - - - - - - - - - - - - - - - - - - - - - - (End of report) AGUSTÍN PAREKH MD oj Date Oct 25, 2024 - - - - - - - - - - - - - - - - - - - - - - - - - - - - - - - - - - - - - - - - IKE ARGUETA STANDARD FORM 515 ID:[id number] SEX:M :1970 AGE: 54 LOC:DERMCMD PCP: LIO Copeland /isaias PAREKH MD DERMATOLOGY & DERMATOPATHOLOGY Signed: 10/25/2024 11:[address] [facility] Encounter Notes: All associated encounter notes This section contains the clinical notes associated to the Encounter. Date/Time Encounter Note(s) Provider Source Oct 16, 2024 09:21 AM DERMATOLOGY CONSUL T: LOCAL TITLE: DERMATOLOGY CONSULT ST STANDARD TITLE: DERMATOLOGY CONSULT DATE OF NOTE: OCT 16, 2024@09:21 ENTRY DATE: OCT 16, 2024@09:21:12 AUTHOR: SBAINO GUTIÉRREZ COSIGNER: CHRIS SPEARS URGENCY: STATUS: COMPLETED DERMATOLOGY CONSULT STL Has ADDENDA DERM CONSULT NOTE IKE ARGUETA is a 54 year MALE with no history of skin cancer presenting for CONSULTATION OF: spot on back that has been growing per patient's . States spot on the nose is one that he picked at recently and has not been present for long (only days). Spots on bilateral arms and abdomen are itchy. Allergies: FIRE ANTS, METFORMIN ROS: all systems reviewed and were negative except as noted in the HPI OBJECTIVE Physical Examination - Scattered brown well circumscribed macules on trunk and extremities - Brown macule on right back with irregular boarders - Scattered brown keratotic stuck on appearing papules on the trunk, b/l upper extremities - Erythematous excoriated papules and plaques on bilateral upper arms and abdomen otherwise: General Appearance: Well Appearing MALE, NAD Mood/Affect: pleasant/appropriate ASSESSMENT AND PLAN # Neoplasm unspecified behavior - Uncertain Prognosis - Dx: Seborrheic keratosis vs junctional nevus vs melanoma - Location: Right back - Biopsy done per procedure note below. - Wound care reviewed with patient. - Follow-up per path. Discussed possible treatment options - Risks and benefits were discussed including, but not limited to, scarring, bleeding, infection, pain, and swelling. PROCEDURE: Shave Biopsy x 1 DESCRIPTION OF PROCEDURE: Informed consent was obtained, including discussion of risks including bleeding, scarring, infection, and recurrence/persistence. [place] Protocol Time-Out performed. The lesionals areas were prepped with alcohol prior to infiltration with 1% lidocaine with epinephrine, 1:100,000 x 1ml. The lesions were biopsied with a Dermablade. Hemostasis was obtained with aluminum chloride and firm pressure. The specimen(s) were placed in formalin and sent for routine histopathological evaluation. There were no complications. The wounds were then dressed with sterile petrolatum and a sterile dressing. Wound care instructions were provided in verbal and written form including a 24-hour contact number in case of emergency. The patient will be notified. # Seborrheic keratoses Benign, reassurance #Prurigo Nodularis - Discussed etiology - Benign reassurance - Start triamcinolone 0.1% cream on affected areas twice a day as needed. SER atrophy, hypo/hyperpigmentation. Prescription sent today - Recommend bland washes and gentle emollients. # Nevi, benign ABCDEs reviewed Monthly self skin examinations Yearly full body skin examination Photoprotection -No additional lesions suspicious for skin cancer on areas examined. Pt phone: RTC pending pathology results /glen/ SABINO GUTIÉRREZ MD, MS DERMATOLOGY RESIDENT Signed: 10/16/2024 09:43 /glen/ Chris Spears M.D., Ph.D. Senior Field Service Engineer - Dermatology Cosigned: 10/16/2024 10:07 10/16/2024 ADDENDUM STATUS: COMPLETED Patient interviewed and examined. Discussed case with resident. Agree with history, physical examination, assessment, and plan. /glen/ Chris Spears M.D., Ph.D. Senior Field Service Engineer - Dermatology Signed: 10/16/2024 10:[address] [facility]
--- OUTSIDE RECORDS SUMMARY | 2024-11-05 10:54 | XMS_ITS ---
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 Role Phone DELLA MAC Primary Care [...] ADVAN TAGE/ HE May 20, 2020 [id number] [phone] KENDALL,D AVID PATIENT [employer] [employer] [place] PREFERRED PROVIDER ORGANIZAT ION (PPO) BOEIN G ADVAN TAGE+ H May 20, 2020 [phone] KENDALL,D AVID PATIENT [employer] [employer] [place] PREFERRED PROVIDER ORGANIZAT ION (PPO) BOEIN G ADVAN TAGE+ HE May 20, 2020 [id number] KENDALL,D AVID PATIENT [employer] [place] PREFERRED PROVIDER ORGANIZAT ION (PPO) BOEIN G ADVAN TAGE+ H May 20, 2020 [id number] KENDALL,D AVID PATIENT OPTUM RX PRESCRIPT ION [facility] Apr 19, 2017 [facility] [id number] [phone] KENDALL,D AVID PATIENT PRIME THERAPEUTI CS RX PRESCRIPT ION NICOLE Khan May 20, 2020 [id number] [phone] KENDALL,D AVID PATIENT [facility] Apr 19, 2017 [id number] [phone] KENDALL,D AVID PATIENT [facility] PREFERRED PROVIDER ORGANIZAT ION (PPO) [facility] Apr 19, 2017 [id number] KENDALL,D AVID PATIENT Selected Encounter This section includes the information on record at [place] for the Encounter. Date/Time Encounter Type Encounter Description Reason Provider Source Dec 13, 2023 03:00 PM MEDICAL NUTRITION INDIV IN PRIMARY CARE/MEDICINE ICD-10-CM E11.9 Type 2 diabetes mellitus without complications TERRY GONZALEZ Brendan Encounter Template Text not used by [place] Assessments - Encounter Diagnoses This section includes the primary and secondary diagnoses documented for the Encounter. Date/Time Primary/Secondary Diagnosis Diagnosis Name Provider Source Dec 24, 2023 07:09 AM PRIMARY Type 2 diabetes mellitus without complications REYES GONZALEZ [facility] Dec 24, 2023 07:09 AM SECONDARY Dietary counseling and surveillance REYES GONZALEZ [facility] Dec 24, 2023 07:09 AM SECONDARY Hyperlipidemia, unspecified ULSBERYREYES [facility] Dec 24, 2023 07:09 AM SECONDARY Obesity, unspecified ULSBERYREYES [facility] Plan of Treatment: Future Appointments (+ 6 months) and Future Tests (+/- 45 days) The Plan of Treatment section includes future care activities for the patient from all [place] treatmentfacilities. This section includes future appointments and future orders which are active, pending or scheduled. Future Appointments This section includes appointments that were scheduled to occur 6 months from the date of the Encounter, up to a maximum of 20 appointments. The data comes from all [place] treatment facilities. Appointment Date/Time Appointment Type Appointme nt Facility Name Dec 24, 2023 08:30 AM AMBULATORY - NONE [facility] TOM Giovanni [facility] Jan 19, 2024 08:30 AM AMBULATORY - NONE [facility] TOM [facility] Feb 24, 2024 10:00 AM AMBULATORY - MEDICINE [facility] May 23, 2024 04:00 PM AMBULATORY - NONE [facility] Active, Pending, and Scheduled Orders This section includes a listing of several types of active, pending, and scheduled orders, including clinic medications orders, diagnostic test orders, procedure orders and consult orders; where the start date of the order is 45 days before the date of the Encounter or 45 days after the date of theEncounter. The data comes from all [place] treatment facilities. Test Date/Time Test Type Test Details Facility Name Jan 18, 2024 12:00 AM Laboratory - Chemi stry Order BASIC METABOLIC PANEL GREEN LI/HEP BLD/PLAS PLASMA SP [facility] Jan 18, 2024 12:00 AM Laboratory - Chemi stry Order HGA1C BLOOD SP [facility] Vital Signs: All taken on the encounter date This section contains inpatient and outpatient Vital Signs collected on the date of the Encounter. Date/Time Temperature Pulse Blood Pressure Respiratory Rate SP02 Pain Height Weight Body Mass Index Source Dec 13, 2023 02:50 PM 262.5 37 [facility] Social History: Smoking Status (Most current) and Tobacco Use (All prior to encounter date) This section includes the most current, and the historical, smoking and tobacco- related health factors from the [place] facility where the Encounter took place. Current Smoking Status This section includes the most current smoking, or tobacco-related health factor, from the [place] facility where the Encounter took place. Date/Time Current Smoking Status Comment Facil ity Sep 22, 2023 08:30 AM VA-TOBACCO USER SOME DAYS [facility] Tobacco Use History This section includes a history of the smoking, or tobacco-related health factors, that were collected on or before the date of the Encounter. The data comes from the [place] facility where the Encounter took place. Date/Time Smoking Status/Tobacco Use Comment F acility Sep 22, 2023 08:30 AM VA-TOBACCO USE 30 YEARS OR MORE [facility] Sep 22, 2023 08:30 AM VA-TOBACCO USE ADVICE [facility] Sep 22, 2023 08:30 AM VA-TOBACCO USE SHIFTMAN NO [facility] Sep 22, 2023 08:30 AM VA-TOBACCO USE MED NO [facility] Sep 22, 2023 08:30 AM VA-TOBACCO USER SOME DAYS [facility] Aug 03, 2017 10:45 AM CURRENT TOBACCO USER [facility] Aug 03, 2017 10:45 AM CURRENT TOBACCO USER (READY TO Q UIT) [facility] Aug 03, 2017 10:45 AM TOBACCO CESSATION REFERRAL DECLI [facility] Aug 03, 2017 10:45 AM TOBACCO OFFERED PT MEDS (PROVIDE R) [facility] Aug 03, 2017 10:45 AM TOBACCO USER OFFERED MEDS [facility] Aug 03, 2017 09:18 AM CURRENT TOBACCO USER [facility] Aug 03, 2017 09:18 AM CURRENT TOBACCO USER (READY TO Q UIT) [facility] Aug 03, 2017 09:18 AM TOBACCO CESSATION REFERRAL DECLI [facility] Aug 03, 2017 09:18 AM TOBACCO USER OFFERED MEDS [facility] Nov 23, 2012 10:44 AM CURRENT TOBACCO USER [facility] Nov 23, 2012 10:44 AM LIFETIME NON-USER OF TOBACCO [facility] Nov 23, 2012 10:44 AM TOBACCO OFFERRED PT MEDS (PROVID ER) [facility] Encounter Notes: All associated encounter notes This section contains the clinical notes associated to the Encounter. Date/Time Encounter Note(s) Provider Source Dec 17, 2023 09:23 AM ADDENDUM: LOCAL TITLE: Addendum STANDARD TITLE: ADDENDUM DATE OF NOTE: DEC 17, 2023@09:23:52 ENTRY DATE: DEC 17, 2023@09:23:53 AUTHOR: DELLA MAC EXP COSIGNER: URGENCY: STATUS: COMPLETED Actually mental health would be our go to focus for that diagnoses. /glen/ DELLA MAC PA-C Signed: 12/17/2023 09:24 Receipt Acknowledged By: 01/11/2024 23:18 /glen/ Jose A Layton Psy.D. Staff Psychologist 12/21/2023 08:14 /glen/ KIM GONZALEZ Clinical Dietitian --- Original Document --- 12/13/23 NUTRITION ASSESSMENT STL: Modality of Care: Face to face NUTRITION ASSESSMENT Diagnosis: DM Time spent with [place]: 30 minutes Last appointment date: initial Id by: name, CLIENT HISTORY Patient Medical History: Benign essential hypertension Morbid obesity Type 2 diabetes mellitus Hyperlipidemia Social history: 53 YOM, with children, works at [employer] FOOD AND NUTRITION RELATED HISTORY Diet experience: Describes increased stress at work with [employer] projects and traveling; diet has not been well. Feels he has been stress eating more at work; having sweets more often; cravings. Stays away from bread; tries not to eat after 6pm. Fluid/Beverage intake: diet soda, water, not a lot of juice, grape or cranberry juice on occasion EtOH: none Food intake: B: oatmeal, fruit, raisins OR sausage, pancakes, pb L: soup Snacks: peanuts D: chicken or pork or pizza Snacks: ice cream, apple + pb, chocolate OUTPATIENT MEDICATIONS - DM meds ACCU-CHEK GUIDE (GLUCOSE) TEST STRIP USE 1 STRIP FOR ACTIVE BLOOD TEST ONCE A DAY ACCU-CHEK GUIDE ME (GLUCOSE) METER USE GLUCOSE METER ACTIVE FOR DIRECTED -CONTACT COMPANY FOR REPLACEMENT OR PROBLEM ALCOHOL PREP PAD USE/APPLY PAD TO AFFECTED AREA(S) ACTIVE ONCE A DAY NEEDED EMPAGLIFLOZIN 25MG TAB TAKE ONE TABLET BY MOUTH ONCE ACTIVE A DAY GLIPIZIDE 5MG TAB TAKE ONE TABLET BY MOUTH TWO TIMES ACTIVE A DAY BEFORE MEALS TAKE 30 MINUTES BEFORE EATING. LANCET,SOFTCLIX USE LANCET FOR BLOOD TEST ONCE A DAY ACTIVE USE DIRECTED. SEMAGLUTIDE 1MG/0.75ML INJ PEN 3ML INJECT 1MG UNDER ACTIVE THE SKIN EVERY WEEK KNOWLEDGE BELIEFS AND ATTITUDES Food and nutrition knowledge: reads food labels for total CHO; unable to what constitutes as high/low. 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 Hopes to return to routine when work slows down. ANTHROPOMETRIC MEASUREMENTS Ht: 71 in [180.3 cm] (08/24/2017 08:55) Wt: 262.5 lb. [119.07 kg] (12/13/2023 14:50) Weight History/Significant changes: trending up + 12.5 lbs. in 2.5 months Patient Weight History - Last Four 1. 262.5 lbs. / 119.1 kg. on DEC 13, 2023@14:50 2. 250.0 lbs. / 113.4 kg. on SEP 22, 2023@08:33:44 3. 278.0 lbs. / 126.1 kg. on AUGUST 24, 2017@08:55 4. 281.1 lbs. / 127.5 kg. on AUG 03, 2017@09:30:32 BMI: 36.7 BIOCHEMICAL DATA/MEDICAL TESTS AND PROCEDURES HGA1C 8.0 H % 09/22/2023 09:11 TRIGLYCERIDE 331 H mg/dL 09/22/2023 09:11 CHOLESTEROL 139 mg/dL 09/22/2023 09:11 HDL(New) 39 L mg/dL 09/22/2023 09:11 DIRECT LDL 59 L mg/dL 09/22/2023 09:11 CALCULATED LDL comment mg/dL 09/22/2023 09:11 Self-Monitoring Blood Glucose (SMBG): does not have readings today has not been tracking denies lows or hypo sx NUTRITION FOCUSED PHYSICAL FINDINGS Ample fat and muscle stores. + cravings No indication of malnutrition NUTRITION PRESCRIPTION: Carbohydrate consistent diet: 45-60 g/meal NUTRITION DIAGNOSIS NEW Excessive carbohydrate intake related to psychological causes 2/2 stress as evidenced by HgA1c 8% and estimated carbohydrate intake that is consistently more than recommended amounts. [Category: psychological etiology] NUTRITION INTERVENTIONS --Nutrition counseling based on motivational interviewing and self-monitoring strategy: Rapport building, supportive/empathetic listening provided. Rec returning to routine checks of smbg altering am/pm fasting and 2 hr. pp. Discussed benefits. --Content related nutrition education: DM diet education provided. Reviewed label reading and provided nutrition rx 45-60 g/meal. Encouraged reduction of concentrated sweets and offered alternative suggestions. Reviewed nutrition education handout. Education material: verbal, Snack List with Carbohydrates Barriers to learning: none Comprehension: good, verbalized understanding NUTRITION MONITORING AND EVALUATION Endocrine profile: HgA1c < 8% and report smbg at f/u Nutrition self-management as agreed upon: --reduce (or eliminate) concentrated sweets intake through f/u Return to clinic: Vet will reach out to schedule appt when ready. Dietitian contact information provided for any follow-up questions or needs. /isaias GONZALEZ Clinical Dietitian Signed: 12/15/2023 10:28 12/16/2023 ADDENDUM STATUS: COMPLETED would like to be tested for ADHD. Can you assist? Thank you! /isaias GONZALEZ Clinical Dietitian Signed: 12/16/2023 16:17 Receipt Acknowledged By: 12/17/2023 09:23 /DELLA Davis PA-C [facility] Dec 16, 2023 04:16 PM ADDENDUM: LOCAL TITLE: Addendum STANDARD TITLE: ADDENDUM DATE OF NOTE: DEC 16, 2023@16:16:53 ENTRY DATE: DEC 16, 2023@16:16:54 AUTHOR: KIM GONZALEZ EXP COSIGNER: URGENCY: STATUS: COMPLETED would like to be tested for ADHD. Can you assist? Thank you! /isaias GONZALEZ Clinical Dietitian Signed: 12/16/2023 16:17 Receipt Acknowledged By: 12/17/2023 09:23 /isaias MAC PA-C --- Original Document --- 12/13/23 NUTRITION ASSESSMENT STL: Modality of Care: Face to face NUTRITION ASSESSMENT Diagnosis: DM Time spent with [place]: 30 minutes Last appointment date: initial Id by: name, CLIENT HISTORY Patient Medical History: Benign essential hypertension Morbid obesity Type 2 diabetes mellitus Hyperlipidemia Social history: 53 YOM, with children, works at [employer] FOOD AND NUTRITION RELATED HISTORY Diet experience: Describes increased stress at work with [employer] projects and traveling; diet has not been well. Feels he has been stress eating more at work; having sweets more often; cravings. Stays away from bread; tries not to eat after 6pm. Fluid/Beverage intake: diet soda, water, not a lot of juice, grape or cranberry juice on occasion EtOH: none Food intake: B: oatmeal, fruit, raisins OR sausage, pancakes, pb L: soup Snacks: peanuts D: chicken or pork or pizza Snacks: ice cream, apple + pb, chocolate OUTPATIENT MEDICATIONS - DM meds ACCU-CHEK GUIDE (GLUCOSE) TEST STRIP USE 1 STRIP FOR ACTIVE BLOOD TEST ONCE A DAY ACCU-CHEK GUIDE ME (GLUCOSE) METER USE GLUCOSE METER ACTIVE FOR DIRECTED -CONTACT COMPANY FOR REPLACEMENT OR PROBLEM ALCOHOL PREP PAD USE/APPLY PAD TO AFFECTED AREA(S) ACTIVE ONCE A DAY NEEDED EMPAGLIFLOZIN 25MG TAB TAKE ONE TABLET BY MOUTH ONCE ACTIVE A DAY GLIPIZIDE 5MG TAB TAKE ONE TABLET BY MOUTH TWO TIMES ACTIVE A DAY BEFORE MEALS TAKE 30 MINUTES BEFORE EATING. LANCET,SOFTCLIX USE LANCET FOR BLOOD TEST ONCE A DAY ACTIVE USE DIRECTED. SEMAGLUTIDE 1MG/0.75ML INJ PEN 3ML INJECT 1MG UNDER ACTIVE THE SKIN EVERY WEEK KNOWLEDGE BELIEFS AND ATTITUDES Food and nutrition knowledge: reads food labels for total CHO; unable to what constitutes as high/low. 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 Hopes to return to routine when work slows down. ANTHROPOMETRIC MEASUREMENTS Ht: 71 in [180.3 cm] (08/24/2017 08:55) Wt: 262.5 lb. [119.07 kg] (12/13/2023 14:50) Weight History/Significant changes: trending up + 12.5 lbs. in 2.5 months Patient Weight History - Last Four 1. 262.5 lbs. / 119.1 kg. on DEC 13, 2023@14:50 2. 250.0 lbs. / 113.4 kg. on SEP 22, 2023@08:33:44 3. 278.0 lbs. / 126.1 kg. on AUGUST 24, 2017@08:55 4. 281.1 lbs. / 127.5 kg. on AUG 03, 2017@09:30:32 BMI: 36.7 BIOCHEMICAL DATA/MEDICAL TESTS AND PROCEDURES HGA1C 8.0 H % 09/22/2023 09:11 TRIGLYCERIDE 331 H mg/dL 09/22/2023 09:11 CHOLESTEROL 139 mg/dL 09/22/2023 09:11 HDL(New) 39 L mg/dL 09/22/2023 09:11 DIRECT LDL 59 L mg/dL 09/22/2023 09:11 CALCULATED LDL comment mg/dL 09/22/2023 09:11 Self-Monitoring Blood Glucose (SMBG): does not have readings today has not been tracking denies lows or hypo sx NUTRITION FOCUSED PHYSICAL FINDINGS Ample fat and muscle stores. + cravings No indication of malnutrition NUTRITION PRESCRIPTION: Carbohydrate consistent diet: 45-60 g/meal NUTRITION DIAGNOSIS NEW Excessive carbohydrate intake related to psychological causes 2/2 stress as evidenced by HgA1c 8% and estimated carbohydrate intake that is consistently more than recommended amounts. [Category: psychological etiology] NUTRITION INTERVENTIONS --Nutrition counseling based on motivational interviewing and self-monitoring strategy: Rapport building, supportive/empathetic listening provided. Rec returning to routine checks of smbg altering am/pm fasting and 2 hr. pp. Discussed benefits. --Content related nutrition education: DM diet education provided. Reviewed label reading and provided nutrition rx 45-60 g/meal. Encouraged reduction of concentrated sweets and offered alternative suggestions. Reviewed nutrition education handout. Education material: verbal, Snack List with Carbohydrates Barriers to learning: none Comprehension: good, verbalized understanding NUTRITION MONITORING AND EVALUATION Endocrine profile: HgA1c < 8% and report smbg at f/u Nutrition self-management as agreed upon: --reduce (or eliminate) concentrated sweets intake through f/u Return to clinic: Vet will reach out to schedule appt when ready. Dietitian contact information provided for any follow-up questions or needs. /glen/ KIM GONZALEZ Clinical Dietitian Signed: 12/15/2023 10:28 12/17/2023 ADDENDUM STATUS: UNSIGNED You may not VIEW this UNSIGNED Addendum. KIM GONZALEZ [facility] Dec 13, 2023 02:43 PM NUTRITION DIETETIC S E & M NOTE: LOCAL TITLE: NUTRITION ASSESSMENT STL STANDARD TITLE: NUTRITION DIETETICS E & M NOTE DATE OF NOTE: DEC 13, 2023@14:43 ENTRY DATE: DEC 13, 2023@14:43:36 AUTHOR: KIM GONZALEZ EXP COSIGNER: URGENCY: STATUS: COMPLETED NUTRITION ASSESSMENT STL Has ADDENDA Modality of Care: Face to face NUTRITION ASSESSMENT Diagnosis: DM Time spent with [place]: 30 minutes Last appointment date: initial Id by: name, CLIENT HISTORY Patient Medical History: Benign essential hypertension Morbid obesity Type 2 diabetes mellitus Hyperlipidemia Social history: 53 YOM, with children, works at [employer] FOOD AND NUTRITION RELATED HISTORY Diet experience: Describes increased stress at work with [employer] projects and traveling; diet has not been well. Feels he has been stress eating more at work; having sweets more often; cravings. Stays away from bread; tries not to eat after 6pm. Fluid/Beverage intake: diet soda, water, not a lot of juice, grape or cranberry juice on occasion EtOH: none Food intake: B: oatmeal, fruit, raisins OR sausage, pancakes, pb L: soup Snacks: peanuts D: chicken or pork or pizza Snacks: ice cream, apple + pb, chocolate OUTPATIENT MEDICATIONS - DM meds ACCU-CHEK GUIDE (GLUCOSE) TEST STRIP USE 1 STRIP FOR ACTIVE BLOOD TEST ONCE A DAY ACCU-CHEK GUIDE ME (GLUCOSE) METER USE GLUCOSE METER ACTIVE FOR DIRECTED -CONTACT COMPANY FOR REPLACEMENT OR PROBLEM ALCOHOL PREP PAD USE/APPLY PAD TO AFFECTED AREA(S) ACTIVE ONCE A DAY NEEDED EMPAGLIFLOZIN 25MG TAB TAKE ONE TABLET BY MOUTH ONCE ACTIVE A DAY GLIPIZIDE 5MG TAB TAKE ONE TABLET BY MOUTH TWO TIMES ACTIVE A DAY BEFORE MEALS TAKE 30 MINUTES BEFORE EATING. LANCET,SOFTCLIX USE LANCET FOR BLOOD TEST ONCE A DAY ACTIVE USE DIRECTED. SEMAGLUTIDE 1MG/0.75ML INJ PEN 3ML INJECT 1MG UNDER ACTIVE THE SKIN EVERY WEEK KNOWLEDGE BELIEFS AND ATTITUDES Food and nutrition knowledge: reads food labels for total CHO; unable to what constitutes as high/low. 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 Hopes to return to routine when work slows down. ANTHROPOMETRIC MEASUREMENTS Ht: 71 in [180.3 cm] (08/24/2017 08:55) Wt: 262.5 lb. [119.07 kg] (12/13/2023 14:50) Weight History/Significant changes: trending up + 12.5 lbs. in 2.5 months Patient Weight History - Last Four 1. 262.5 lbs. / 119.1 kg. on DEC 13, 2023@14:50 2. 250.0 lbs. / 113.4 kg. on SEP 22, 2023@08:33:44 3. 278.0 lbs. / 126.1 kg. on AUGUST 24, 2017@08:55 4. 281.1 lbs. / 127.5 kg. on AUG 03, 2017@09:30:32 BMI: 36.7 BIOCHEMICAL DATA/MEDICAL TESTS AND PROCEDURES HGA1C 8.0 H % 09/22/2023 09:11 TRIGLYCERIDE 331 H mg/dL 09/22/2023 09:11 CHOLESTEROL 139 mg/dL 09/22/2023 09:11 HDL(New) 39 L mg/dL 09/22/2023 09:11 DIRECT LDL 59 L mg/dL 09/22/2023 09:11 CALCULATED LDL comment mg/dL 09/22/2023 09:11 Self-Monitoring Blood Glucose (SMBG): does not have readings today has not been tracking denies lows or hypo sx NUTRITION FOCUSED PHYSICAL FINDINGS Ample fat and muscle stores. + cravings No indication of malnutrition NUTRITION PRESCRIPTION: Carbohydrate consistent diet: 45-60 g/meal NUTRITION DIAGNOSIS NEW Excessive carbohydrate intake related to psychological causes 2/2 stress as evidenced by HgA1c 8% and estimated carbohydrate intake that is consistently more than recommended amounts. [Category: psychological etiology] NUTRITION INTERVENTIONS --Nutrition counseling based on motivational interviewing and self-monitoring strategy: Rapport building, supportive/empathetic listening provided. Rec returning to routine checks of smbg altering am/pm fasting and 2 hr. pp. Discussed benefits. --Content related nutrition education: DM diet education provided. Reviewed label reading and provided nutrition rx 45-60 g/meal. Encouraged reduction of concentrated sweets and offered alternative suggestions. Reviewed nutrition education handout. Education material: verbal, Snack List with Carbohydrates Barriers to learning: none Comprehension: good, verbalized understanding NUTRITION MONITORING AND EVALUATION Endocrine profile: HgA1c < 8% and report smbg at f/u Nutrition self-management as agreed upon: --reduce (or eliminate) concentrated sweets intake through f/u Return to clinic: Vet will reach out to schedule appt when ready. Dietitian contact information provided for any follow-up questions or needs. /isaias GONZALEZ Clinical Dietitian Signed: 12/15/2023 10:28 12/16/2023 ADDENDUM STATUS: COMPLETED [place] would like to be tested for ADHD. Can you assist? Thank you! /isaias GONZALEZ Clinical Dietitian Signed: 12/16/2023 16:17 Receipt Acknowledged By: 12/17/2023 09:23 /isaias MAC PA-C 12/17/2023 ADDENDUM STATUS: COMPLETED Actually mental health would be our go to focus for that diagnoses. /isaias MAC PA-C Signed: 12/17/2023 09:24 Receipt Acknowledged By: * AWAITING SIGNATURE * JOSE A LAYTON * AWAITING SIGNATURE * KIM GONZALEZ SELENA D [facility]
--- OUTSIDE RECORDS SUMMARY | 2024-11-05 10:54 | XMS_ITS | Encounter Summary ---
Author Organization [facility] Address [address] [place] [address] Phone Care Team Providers Care Object Oriented Developer Name Role Phone Kris Perla MD Primary Care Provider Chas Thurman MD Unavailable Reason for Visit * Reason Comments Medication Refill Encounter Details Date Type Department Care Team (Late st Contact Info) Description 09/05/2023 Refill [facility] - Family Medicine [facility] [address] [place] [address] Kris Perla MD [address] [address] Medication Refill Social History Tobacco Use Types Packs/Day Years Used Date Smoking Tobacco: Former Cigarettes 0.5 34.2 1 989 - 07/10/2022 Smokeless Tobacco: Former Chew Quit: 2000 Alcohol Use Standard Drinks/Week Comments Yes 0 (1 standard drink = 0.6 oz pur e alcohol) 1-2 beers a week [facility] Utilities Answer Date Recorded In the past 12 months has e electric, gas, oil, or water company [...] or relatives? Once a week 07/27/2023 Attends [employer] Services Not on file 07/26 Active Member [...] Total Score - Questions 1-9 0 10/2021 [facility] - Occupational Stress Questionnaire Answer Date Recorded [...] place to sleep or slept in a fdc (including now)? No 07/27/2023 Education Answer Date [...] encounter Miscellaneous Notes * Telephone Encounter - Jody Ricketts RN - 09/05/2023 4:04 PM CDT Medication(s) refilled and signed per [facility] Chronic Medication Refill Standing Order for Pediatricand Adult Patients. Requested Prescriptions Pending Prescriptions Disp Refills atorvastatin (LIPITOR) 40 MG Tablet [Pharmacy Med Name: ATORVASTATIN 40 MG TABLET] 90 Tablet 1 Sig: TAKE 1 TABLET BY MOUTH EVERY DAY [facility] CoA Reductase Inhibitors Protocol Passed - 09/05/2023 7:05 AM Passed - Visit with relevant provider in past 12 months or upcoming 90 days Recent Visits Date Type Provider Dept 07/27/23 Office Visit Kris Perla MD [facility] 06/07/23 Office Visit Kris Perla MD [facility] 03/30/23 Office Visit Kris Perla MD [facility] 11/12/22 Office Visit Kris Perla MD [facility] [place] Showing recent visits within past 365 days and meeting all other requirements Future Appointments No visits were found meeting these conditions. Showing future appointments within next 90 days and meeting all other requirements Passed - Lipid panel in past 12 months LDL Date Value Ref Range Status 07/27/2023 35 <130 mg/dL Final HDL CHOLESTEROL Date Value Ref Range Status 07/27/2023 44 >40 mg/dL Final CHOLESTEROL Date Value Ref Range Status 07/27/2023 141 <200 mg/dL Final TRIGLYCERIDES Date Value Ref Range Status 07/27/2023 312 (H) <150 mg/dL Final VLDL Date Value Ref Range Status 07/27/2023 62 (H) 10 - 50 mg/dL Final CHOL/HDL RATIO Date Value Ref Range Status 07/27/2023 3.2 0.0 - 4.4 Final NON-HDL CHOLESTEROL Date Value Ref Range Status 07/27/2023 97 <130 mg/dL Final Passed - CMP in past 12 months SODIUM Date Value Ref Range Status 07/27/2023 139 136 - 145 mmol/L Final POTASSIUM Date Value Ref Range Status 07/27/2023 4.0 3.5 - 5.1 mmol/L Final CHLORIDE Date Value Ref Range Status 07/27/2023 105 98 - 107 mmol/L Final CO2, VENOUS Date Value Ref Range Status 07/27/2023 25 22 - 30 mmol/L Final ANION GAP Date Value Ref Range Status 07/27/2023 13.0 <18.0 mmol/L Final GLUCOSE Date Value Ref Range Status 07/27/2023 100 (H) 70 - 99 mg/dL Final BUN Date Value Ref Range Status 07/27/2023 11 8 - 26 mg/dL Final CREATININE, BLOOD Date Value Ref Range Status 07/27/2023 0.79 0.70 - 1.30 mg/dL Final BUN/CREATININE RATIO Date Value Ref Range Status 07/27/2023 14 12 - 20 ratio Final TOTAL PROTEIN Date Value Ref Range Status 07/27/2023 7.2 6.3 - 8.2 g/dL Final ALBUMIN Date Value Ref Range Status 07/27/2023 4.2 3.5 - 5.0 g/dL Final A/G RATIO Date Value Ref Range Status 07/27/2023 1.4 1.0 - 2.2 Final CALCIUM Date Value Ref Range Status 07/27/2023 9.3 8.7 - 10.5 mg/dL Final T BILI Date Value Ref Range Status 07/27/2023 0.6 0.2 - 1.2 mg/dL Final SGOT (AST) Date Value Ref Range Status 07/27/2023 25 5 - 34 U/L Final SGPT (ALT) Date Value Ref Range Status 07/27/2023 29 0 - 55 U/L Final ALKALINE PHOSPHATASE Date Value Ref Range Status 07/27/2023 93 40 - 150 U/L Final GFR, EST. NONAFRICAN Date Value Ref Range Status 07/27/2023 >60 >=60 Final GFR, EST. Date Value Ref Range Status 07/27/2023 >60 >=60 Final GFR, ESTIMATED Date Value Ref Range Status 07/27/2023 >60 >=60 Final Comment: Creatinine Clearance is the preferred criteria for selecting drug dose adjustments in renally impaired patients. The GFR is provided as additional pertinent clinical information. GFR is reported in mL/min/1.73 sq m. Calculation based on the Chronic Kidney Disease Epidemiology Collaboration (CKD- EPI) equation refitwithout adjustment for race. IS THE PATIENT REQUIRED TO BE FASTING? Date Value Ref Range Status 07/27/2023 No Final documented in this encounter Plan of Treatment Not on file documented as of this encounter Visit Diagnoses Not on filedocumented in this encounter Additional Health Concerns Assessment Noted Time PHQ-9 Depression Total Score: 0 01/24/20 21 3:00 PM CDT documented as of this encounter Care Teams Object Oriented Developer Relationship Specialty Start Date End Date Kris Perla MD [address]2 [facility] [address] [place] [address] PCP - General Family Medicine 03/15/15 Chas Thurman MD #2 [facility] [address] [place] [address] Consulting Physician Colon and Rectal Surgery 03/18/22 documented as of this encounter
--- OUTSIDE RECORDS SUMMARY | 2024-11-05 10:54 | XMS_ITS | Encounter Summary ---
Author Organization [facility] Address [address] [place] [address] Phone Care Team Providers Care Dock Or Pier Laborer Name Role Phone Kris Perla MD Primary Care Provider [phone] Chas Thurman MD Unavailable Reason for Visit * Reason Comments Medication Refill Encounter Details Date Type Department Care Team (Late st Contact Info) Description 09/04/2023 Refill [facility] - Family Medicine [facility] [address] [place] [address] Gavin Larson MD [address] [place] [address] Medication Refill Social History Tobacco Use Types Packs/Day Years Used Date Smoking Tobacco: Former Cigarettes 0.5 34.2 1 989 - 07/10/2022 Smokeless Tobacco: Former Chew Quit: 2000 Alcohol Use Standard Drinks/Week Comments Yes 0 (1 standard drink = 0.6 oz pur e alcohol) 1-2 beers a week [facility] Utilities Answer Date Recorded In the [...] or relatives? Once a week 07/27/2023 Attends [employer] Not on file 07/26 Active Member [...] Total Score - Questions 1-9 0 10/2021 [facility] - Occupational [...] place to sleep or slept in a group home (including now)? No 07/27/2023 Education Answer Date [...] Encounter - Jody Ricketts RN - 09/05/2023 2:09 PM CDT Medication failed the protocol, provider to review and approve the medication order if appropriate. Requested Prescriptions Pending Prescriptions Disp Refills sildenafil citrate (VIAGRA) 100 MG Tablet [Pharmacy Med Name: SILDENAFIL 100 MG TABLET] 8 Tablet 9 Sig: TAKE 1 TABLET BY MOUTH NEEDED FOR ERECTILE DYSFUNCTION Erectile Dysfunction Medication Protocol Failed - 09/04/2023 7:18 AM Failed - Erectile dysfunction on problem list Passed - Visit with relevant provider in past 12 months or upcoming 90 days Recent Visits Date Type Provider Dept 07/27/23 Office Visit Kris Perla MD [facility] 06/07/23 Office Visit Kris Perla MD [facility] 03/30/23 Office Visit Kris Perla MD [facility] 11/12/22 Office Visit Kris Perla MD [facility] [place] Showing recent visits within past 365 days and meeting all other requirements Future Appointments No visits were found meeting these conditions. Showing future appointments within next 90 days and meeting all other requirements Passed - Absence of nitrates on med list documented in this encounter Plan of Treatment Not on file documented as of this encounter Visit Diagnoses Not on filedocumented in this encounter Additional Health Concerns Assessment Noted Time PHQ-9 Depression Total Score: 0 01/24/20 21 3:00 PM CDT documented as of this encounter Care Teams Dock Or Pier Laborer Relationship Specialty Start Date End Date Kris Perla MD #[address] [facility] [address] [place] [address] PCP - General Family Medicine 03/15/15 Chas Thurman MD #[address] [facility] [address] [place] [address] Consulting Physician Colon and Rectal Surgery 03/18/22 documented as of this encounter
--- OUTSIDE RECORDS SUMMARY | 2024-11-05 10:54 | XMS_ITS | Encounter Summary ---
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 Name Role Phone DELLA MAC Primary Care [...] ADVAN TAGE/ HE May 20, 2020 [id number] [phone] KENDALL,D AVID PATIENT [place] [employer] [place] PREFERRED PROVIDER ORGANIZAT ION (PPO) BOEIN G ADVAN TAGE+ H May 20, 2020 [id number] [phone] KENDALL,D AVID PATIENT [place] [employer] [place] PREFERRED PROVIDER ORGANIZAT ION (PPO) BOEIN G ADVAN TAGE+ HE May 20, 2020 [id number] [phone] KENDALL,D AVID PATIENT [employer] [place] PREFERRED PROVIDER ORGANIZAT ION (PPO) BOEIN G ADVAN TAGE+ H May 20, 2020 [id number] [phone] KENDALL,D AVID PATIENT OPTUM RX PRESCRIPT ION [facility] Apr 19, 2017 [facility] [id number] [phone] KENDALL,D AVID PATIENT PRIME THERAPEUTI CS RX PRESCRIPT ION NICOLE G May 20, 2020 [facility] [id number] [phone] KENDALL,D AVID PATIENT [facility] Apr 19, 2017 [id number] [phone] KENDALL,D AVID PATIENT [facility] PREFERRED PROVIDER ORGANIZAT ION (PPO) [facility] Apr 19, 2017 [id number] [phone] KENDALL,D AVID PATIENT Selected Encounter This section includes the information on record at [place] for the Encounter. Date/Time Encounter Type Encounter Description Reason Provider Source Oct 09, 2024 10:30 AM OFFICE O/P EST MOD 30 MIN PRIMARY CARE/MEDICINE ICD-10-CM E11.9 Type 2 diabetes mellitus without complications DELLA MAC Brendan Encounter Template Text not used by [place] Assessments - Encounter Diagnoses This section includes the primary and secondary diagnoses documented for the Encounter. Date/Time Primary/Secondary Diagnosis Diagnosis Name Provider Source Oct 23, 2024 11:42 AM PRIMARY Type 2 diabetes mellitus without complications DELLA MAC [facility] Oct 23, 2024 11:42 AM SECONDARY Essential (primary) hypertension DELLA MAC [facility] Oct 23, 2024 11:42 AM SECONDARY Hyperlipidemia, unspecified DELLA MAC [facility] Oct 23, 2024 11:42 AM SECONDARY Morbid (severe) obesity due to excess calories DELLA MAC [facility] Oct 23, 2024 11:42 AM SECONDARY Pain in left shoulder DELLA MAC [facility] Oct 23, 2024 11:42 AM SECONDARY Rash and other nonspecific skin eruption DELLA MAC [facility] Oct 23, 2024 11:42 AM SECONDARY Tinea unguium DELLA MAC Lalitha [facility] Plan of Treatment: Future Appointments (+ 6 months) and Future Tests (+/- 45 days) The Plan of Treatment section includes future care activities for the patient from all VA treatmentfacilities. This section includes future appointments and future orders which are active, pending or scheduled. Future Appointments This section includes appointments that were scheduled to occur 6 months from the date of the Encounter, up to a maximum of 20 appointments. The data comes from all [facility] facilities. Appointment Date/Time Appointment Type Appointme nt Facility Name Oct 16, 2024 09:30 AM AMBULATORY - MEDICINE [facility] Lab Results: +/- 30 days of the encounter This section includes the Chemistry and Hematology Lab Results on record with [place] for the patient. Radiology Reports and Pathology Reports are provided separately, in subsequent sections. Lab Results This section contains the Chemistry/Hematology Results that were resulted 30 days before or 30 daysafter the date of the Encounter. Date/Time Source Result Type Result - Unit Interpretation Reference Range Specimen Type Comment Oct 09, 2024 11:22 AM [facility] TSH W/ REFLEX FT4 (STL) PLASMA Specimen Type: PLASMA Comment: No hemolysis noted. Ordering Provider: DELLA MAC Report Released Date/Time: Sep 22, 2023 09:05 AM Reporting Lab: [address] [address] Performing Lab: [address] [address] TSH 0.416 u[IU]/mL L 0.47-5 FREE T4(REFLEX) 1.07 ng/mL 0.7-1.48 Oct 09, 2024 11:22 AM [facility] PROST. SPECIFIC AG.(PB-STL) SERUM Specimen Ty pe: SERUM Comment: The listed sex of this patient may not be a typical indication for this test. Therefore, reference ranges or interpretive criteria listed may not be valid. Clinical correlation suggested. Ordering Provider: DELLA MAC Report Released Date/Time: Sep 22, 2023 09:05 AM Reporting Lab: [address] [address] Performing Lab: [address] [address] PROST. SPECIFIC AG.(PB-STL) 0.429 ng/mL 0-4 Oct 09, 2024 11:22 AM [facility] MICRAL/CREAT PROFILE (STL) URINE Specimen Typ e: URINE No comment entered. Ordering Provider: DELLA MAC Report Released Date/Time: Sep 22, 2023 09:05 AM Reporting Lab: [address] [address] Performing Lab: [address] [address] URINE ALBUMIN (PB-STL) 8.5 mg/L uACR (STL) 9 mg/g 0-29 CREATININE URINE/OTHERS 89.6 mg/dL 63-16 6 Oct 09, 2024 11:22 AM [facility] LIPID PANEL (L) PLASMA Specimen Ty pe: PLASMA Comment: No hemolysis noted. Ordering Provider: DELLA MAC Report Released Date/Time: Sep 22, 2023 09:05 AM Reporting Lab: [address] [address] Performing Lab: [address] [address] CHOLESTEROL 131 mg/dL 0-200 TRIGLYCERIDE 183 mg/dL H 0-150 CALCULATED LDL 49 mg/dL HDL(New) 45 mg/dL >40 Oct 09, 2024 11:22 AM [facility] COMPREHENSIVE METABOLIC PANEL PLASMA Specimen Type: PLASMA Comment: No hemolysis noted. Ordering Provider: DELLA MAC Report Released Date/Time: Sep 22, 2023 09:05 AM Reporting Lab: [address] [address] Performing Lab: [address] [address] CREATININE 0.68 mg/dL L 0.7-1.3 UREA NITROGEN [...] 109.8 >60 Oct 09, 2024 11:22 AM [facility] HGA1C BLOOD Specimen Type: BLOOD No comment entered. Ordering Provider: DELLA MAC Report Released Date/Time: Sep 22, 2023 09:05 AM Reporting Lab: [address] [address] Performing Lab: [address] [address] HGA1C 8.4 H 4.0-6.0 Oct 09, 2024 11:22 AM [facility] VITAMIN D, 25-HYDROXY SERUM Specime n Type: SERUM Comment: The listed sex of this patient may not be a typical indication for this test. Therefore, reference ranges or interpretive criteria listed may not be valid. Clinical correlation suggested. Ordering Provider: DELLA [facility] Report Released Date/Time: Sep 22, 2023 09:05 AM Reporting Lab: [address] [address] Performing Lab: [address] [address] VITAMIN D, 25-HYDROXY 18.2 ng/mL L 30-96 Oct 09, 2024 11:22 AM [facility] CBC BLOOD Specimen Type: BLOOD No comment entered. Ordering Provider: DELLA MAC Report Released Date/Time: Sep 22, 2023 09:05 AM Reporting Lab: [address] [address] Performing Lab: [address] [address] WBC 8.3 10*3/uL 3.6-11.2 RBC 5.65 10*6/uL [...] 0.60 BASOPHILS, ABSOLUTE 0.05 10*3/uL 0.00-0. 20 Vital Signs: All taken on the encounter date This section contains inpatient and outpatient Vital Signs collected on the date of the Encounter. Date/Time Temperature Pulse Blood Pressure Respiratory Rate SP02 Pain Height Weight Body Mass Index Source Oct 09, 2024 10:24 AM 98.8 F 94 /min 126/81 mm[Hg] 20 /min 96 % [address] [facility] Social History: Smoking Status (Most current) and Tobacco Use (All prior to encounter date) This section includes the most current, and the historical, smoking and tobacco- related health factors from the [place] facility where the Encounter took place. Current Smoking Status This section includes the most current smoking, or tobacco-related health factor, from the [place] facility where the Encounter took place. Date/Time Current Smoking Status Comment Facil ity Oct 09, 2024 10:30 AM VA-TOBACCO USE FORMER CIGARETTES [facility] Tobacco Use History This section includes a history of the smoking, or tobacco-related health factors, that were collected on or before the date of the Encounter. The data comes from the [place] facility where the Encounter took place. Date/Time Smoking Status/Tobacco Use Comment F acility Oct 09, 2024 10:30 AM VA-TOBACCO USE FORMER CIGARETTES [facility] Sep 22, 2023 08:30 AM VA-TOBACCO DOESNT USE WI [address] [facility] Sep 22, 2023 08:30 AM VA-TOBACCO USE [address] [facility] Sep 22, 2023 08:30 AM VA-TOBACCO USE ADVICE 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 Sep 22, 2023 08:30 AM VA-TOBACCO USE MED NO [facility] Sep 22, 2023 08:30 AM VA-TOBACCO USER SOME DAYS [facility] Aug 03, 2017 10:45 AM CURRENT TOBACCO USER [facility] Aug 03, 2017 10:45 AM CURRENT TOBACCO USER (READY TO Q UIT) [facility] Aug 03, 2017 10:45 AM TOBACCO CESSATION REFERRAL [facility] Aug 03, 2017 10:45 AM TOBACCO OFFERED PT MEDS (PROVIDE R) [facility] Aug 03, 2017 10:45 AM TOBACCO USER OFFERED MEDS [facility] Aug 03, 2017 09:18 AM CURRENT TOBACCO USER [facility] Aug 03, 2017 09:18 AM CURRENT TOBACCO USER (READY TO Q UIT) [facility] Aug 03, 2017 09:18 AM TOBACCO CESSATION REFERRAL [facility] Aug 03, 2017 09:18 AM TOBACCO USER OFFERED MEDS [facility] Nov 23, 2012 10:44 AM CURRENT TOBACCO USER [facility] Nov 23, 2012 10:44 AM LIFETIME NON-USER OF TOBACCO [facility] Nov 23, 2012 10:44 AM TOBACCO OFFERRED PT MEDS (PROVID ER) [facility] Pathology Reports: +/- 30 days of the [...] the Encounter. The data comes from all [place] treatment facilities. Date/Time Pathology Report Provider Source Oct 25, 2024 11:32 AM LR SURGICAL PATHOL OGY REPORT: LOCAL TITLE: LR SURGICAL PATHOLOGY REPORT STANDARD TITLE: PATHOLOGY PROCEDURE NOTE DATE OF NOTE: OCT 25, 2024@11:32:07 ENTRY DATE: OCT 25, 2024@11:32:07 AUTHOR: JASSIM,AGUSTÍN EXP COSIGNER: URGENCY: STATUS: COMPLETED $APHDR - [...] 10-25-2024] Microscopic examination substantiates the cited diagnosis. [place]-1/Melan-A immunostain highlight the melanocytes without evidence of significant confluent lentiginous hyperplasia nor significant pagetoid spread. DIAGNOSIS: SKIN, RIGHT BACK, SHAVE BIOPSY - COMPOUND MELANOCYTIC NEVUS WITH ARCHITECTURAL DISORDER /isaias PAREKH MD DERMATOLOGY & DERMATOPATHOLOGY Signed Oct 25, 2024@11:32 Performing Laboratory: Surgical Pathology Report [facility]formed By: [facility]# [id number] [address] [place] [id number] $FTR - - - - - - [...] - - IKE ARGUETA STANDARD FORM 515 ID:[id number] SEX:M :1970 AGE: 54 LOC:DERMCMD PCP: LIO Cop[place] /isaias PAREKH MD DERMATOLOGY & DERMATOPATHOLOGY Signed: 10/25/2024 11:32 AGUSTÍN PAREKH [facility] Encounter Notes: All associated encounter notes This section contains the clinical notes associated to the Encounter. Date/Time Encounter Note(s) Provider Source Oct 13, 2024 10:17 AM ADDENDUM: LOCAL TITLE: Addendum STANDARD TITLE: ADDENDUM DATE OF NOTE: OCT 13, 2024@10:17:05 ENTRY DATE: OCT 13, 2024@10:17:06 AUTHOR: DELLA MAC COSIGNER: URGENCY: STATUS: COMPLETED Please inform the patient that recent lab work showed elevated hemoglobin A1c at 8.4% as well as decreased vitamin D with his other lab work being stable and PSA within normal limits. Patient is currently being followed by a civilian primary care provider for his type 2 diabetes and has been seen by our clinical pharmacist in the past. Inquire if the patient is taking his diabetes medication as prescribed and if he would like further adjustment of his treatment plan through our office or through his civilian primary care provider's office. Also inquire if the patient would like to receive vitamin D through the [place] pharmacy. If you would like to buy vitamin D [id number] I would recommend 2000 units daily. /glen/ DELLA MAC PA-C Signed: 10/13/2024 10:18 Receipt Acknowledged By: 10/19/2024 14:30 /glen/ RUSTAM CONDE REGISTERED NURSE, MEAT SMOKER --- Original Document --- 10/09/24 PRIMARY CARE PROVIDER ESTABLISHED VISIT STL: * presents for Annual Visit PCP:Dr. [place] SPECIALISTS:Civilian ortho/opto SUBJECTIVE HPI: is a 54 y/o patient to clinic today for an annual VA appt to discuss chronic issues to include type 2 diabetes and hypertension. Patient reports that he continues to follow-up with his civilian primary care provider every 6 to 12 months secondary to his chronic medical conditions. Patient says that he is up- to-date on colonoscopies which he completed through his civilian primary care provider's office 3 years ago. Patient states that at this time he continues to adhere to a low carbohydrate diet but is not on any particular exercise program. Patient also says that he has a skin lesion to his right mid back area and would like that looked at in the clinic today. Of note the patient did not have lab work done prior to today's appointment but will have labs drawn in the clinic today. Patient denies headaches, chest pain, SOB, problems with bowel/bladder, or swelling to the BLE. The patient has no other complaints in the clinic today. Smoking:N Colonoscopy:Y, 2021 with polyps, followed by civilian PCP Exercise:N Diet:Y, low carb Alcohol:4 drinks monthly Optometry:Y, civilian [employer] annually PERTINENT PMH: 1. Type 2 diabetes 2. Essential hypertension 3. Hyperlipidemia 4. Obesity 5. Left shoulder pain MEDICATIONS: Active Outpatient Medications (including Supplies): Active Outpatient Medications Status 1) ACCU-CHEK GUIDE (GLUCOSE) TEST STRIP USE 1 STRIP FOR BLOOD ACTIVE TEST ONCE A DAY Indication: FOR BLOOD SUGAR MONITORING 2) ALCOHOL PREP PAD USE/APPLY PAD TO AFFECTED AREA(S) ONCE A ACTIVE DAY NEEDED Indication: FOR SKIN CLEANSING 3) ATORVASTATIN CALCIUM 80MG TAB TAKE ONE-HALF TABLET BY MOUTH ACTIVE EVERY EVENING Indication: FOR HIGH CHOLESTEROL 4) EMPAGLIFLOZIN 25MG TAB TAKE ONE TABLET BY MOUTH ONCE A DAY ACTIVE Indication: FOR DIABETES 5) GLIPIZIDE 5MG TAB TAKE ONE TABLET BY MOUTH TWO TIMES A DAY ACTIVE BEFORE MEALS TAKE 30 MINUTES BEFORE EATING. Indication: FOR DIABETES 6) LANCET,SOFTCLIX USE LANCET FOR BLOOD TEST ONCE A DAY USE ACTIVE DIRECTED. Indication: FOR BLOOD SUGAR MONITORING 7) LISINOPRIL 20MG TAB TAKE ONE-HALF TABLET BY MOUTH ONCE A DAY ACTIVE Indication: FOR HIGH BLOOD PRESSURE 8) SEMAGLUTIDE 1MG/0.75ML INJ PEN 3ML INJECT 1MG UNDER THE SKIN ACTIVE EVERY WEEK Indication: FOR DIABETES Active Non-VA Medications Status 1) Non-VA ASPIRIN 81MG EC TAB 81MG BY MOUTH ONCE A DAY ACTIVE Indication: FOR CARDIOVASCULAR DISEASE 9 Total Medications ALLERGIES: FIRE ANTS, METFORMIN DATA REVIEW: HGA1C 8.0 H % 09/22/2023 09:11 Lipid Panel: TRIGLYCERIDE 331 H mg/dL 09/22/2023 09:11 CHOLESTEROL 139 mg/dL 09/22/2023 09:11 HDL(New) 39 L mg/dL 09/22/2023 09:11 DIRECT LDL 59 L mg/dL 09/22/2023 09:11 CALCULATED LDL comment mg/dL 09/22/2023 09:11 CMP: SODIUM 137 mEq/L 09/22/2023 09:11 POTASSIUM 3.9 mEq/L 09/22/2023 09:11 CHLORIDE 105 mEq/L 09/22/2023 09:11 UREA NITROGEN 17.7 mg/dL 09/22/2023 09:11 CREATININE 0.84 mg/dL 09/22/2023 09:11 CALCIUM 9.1 mg/dL 09/22/2023 09:11 PROTEIN 7.0 g/dL 09/22/2023 09:11 ALBUMIN 4.1 g/dL 09/22/2023 09:11 ALKALINE PHOSPHATASE 94 U/L 09/22/2023 09:11 ALT/SGPT 22 U/L 09/22/2023 09:11 AST/SGOT 20 U/L 09/22/2023 09:11 TOTAL BILIRUBIN 0.5 mg/dL 09/22/2023 09:11 CARBON DIOXIDE 20 L mEq/L 09/22/2023 09:11 GLUCOSE 208 H mg/dL 09/22/2023 09:11 EGFR (CKD-EPI 2020) 104.3 09/22/2023 09:11 CBC: WBC 7.2 10*3/uL 09/22/2023 09:11 RBC 5.45 10*6/uL 09/22/2023 09:11 HGB 16.0 g/dL 09/22/2023 09:11 HCT 48.7 H % 09/22/2023 09:11 MCV 89.4 fL 09/22/2023 09:11 MCH 29.4 pg 09/22/2023 09:11 MCHC 32.9 L g/dL 09/22/2023 09:11 RDW 14.0 % 09/22/2023 09:11 PLT 354 10*3/uL 09/22/2023 09:11 MPV 10.1 fL 09/22/2023 09:11 NEUTROPHILS, AUTO % 67 % 09/22/2023 09:11 LYMPHOCYTES, AUTO % 24 % 09/22/2023 09:11 MONOCYTES, AUTO % 6 % 09/22/2023 09:11 EOSINOPHILS, AUTO % 2 % 09/22/2023 09:11 BASOPHILS, AUTO % 1 % 09/22/2023 09:11 NEUTROPHILS, ABSOLUTE 4.82 10*3/uL 09/22/2023 09:11 LYMPHOCYTES, ABSOLUTE 1.77 10*3/uL 09/22/2023 09:11 MONOCYTES, ABSOLUTE 0.42 10*3/uL 09/22/2023 09:11 EOSINOPHILS, ABSOLUTE 0.13 10*3/uL 09/22/2023 09:11 BASOPHILS, ABSOLUTE 0.06 10*3/uL 09/22/2023 09:11 PROST. SPECIFIC AG.(PB-STL) 0.409 ng/mL 09/22/2023 09:11 TSH: No TSH (1YR) EO data found VITAMIN D, 25-HYDROXY 11.4 L ng/mL 09/22/2023 09:11 UA: No URINALYSIS EO data found VITALS: BP: 126/81 P: 94 R: 20 WT: 260.1 T: 98.8 reviewed OBJECTIVE: GENERAL: Alert, well developed/nourished, NAD SKIN: No rashes, no jaundice, warm/dry, intact, 1 cm annular multicolored/hyperpigmented macular papular lesion noted to the right thoracic area, dry/flaking/crumbling great toenails bilaterally and right second toe HEENT: PERRLA, nares patent, throat clear CV: RRR, S1 S2 no murmurs, rubs or gallops RESP: CTA, no crackles/rhonchi/wheezing NECK: Supple, no bruit, no thyromegaly/nodules ABD: Obese with no ttp or HSM noted EXT: No edema, no cyanosis PSY: Pleasant, appropriate, no obvious delusions or hallucinations ASSESSMENT/PLAN: 1. Type 2 diabetes, stable with current diabetes treatment plan with hemoglobin A1c pending and continued follow-up through his civilian primary care provider's office. 2. Essential hypertension, stable with medication and followed by his civilian primary care provider. 3. Hyperlipidemia, stable with medication and followed by his civilian primary care provider with lipid panel pending. 4. Obesity, ongoing issue. Diet and exercise were discussed at today's appointment and I offered the patient a referral to our dietitian which he refused. 5. Left shoulder pain, stable following surgical repair 6 months ago with continued follow-up through his civilian orthopedic surgeons office. 6. Skin lesion noted to the right mid thoracic area. I will place consult to [place] dermatology for further evaluation and treatment of the skin lesion. 7. Dry/flaking/crumbling nails bilateral great toe as well as second right toe consistent with onychomycosis. I will start the patient on topical Lamisil twice daily to these areas. Patient was informed that if he notices no improvement within the next 2 to 3 months to contact the clinic to discuss the start of oral medication. * Patient to have labs drawn in the clinic today. When the lab work is completed we will contact him with the results. * Medical conditions discussed with [place], medications refilled at appointment today. * Return to clinic with routine labs: 1 year. * Patient stated understanding and was agreeable with this treatment plan. Avg Risk Colorectal Cancer Screen - L,N,P,PH: AVERAGE RISK colorectal cancer screening is due based on information available to this clinical reminder Patient has arranged or is choosing to arrange this care independent of and without assistance from this VA. Initial Lung Cancer Screen (Provider): No clinical exclusions, patient is a current candidate for the lung cancer screening program. Patient declines lung cancer screening THIS YEAR ONLY. Lung cancer screening information provided. Hepatitis C Testing - L,N,P,PH: Patient declines HCV lab test. HIV Screening (Routine): Patient has been offered HIV testing and has declined. I have explained that HIV testing is recommended for all adults, even if all risk factors are absent. Tobacco Use Screening - AT,DE,L,M,N,P,PH,PS,RT,S,U: The patient is a former cigarette smoker. The patient has never used other types of tobacco. PAVE Foot Check - L,N,P,PH,PO,PT,U: A complete foot check was completed at this encounter. VISUAL INSPECTION: Includes inspection for skin breaks, deformity, erythema, trauma, pallor on elevation, dependent rubor, nail deformities, extensive callus and pitting edema. Visual exam results: Abnormal Observations: Thickened toenails, Bilateral pes planus PEDAL PULSES: Includes palpation of dorsalis and posterior tibial pulses and signs/symptoms of vascular compromise like pain, pallor, parasthesia or paralysis. Present (even if diminished) SENSORY CHECK: Includes 10 gram Monofilament ([place]) test of sensation. Intact (Greater than or equal to 80% of sites checked) Abnormal (Less than 80% of sites checked): Intact LOW-RISK: LOW RISK INFORMATION PROVIDED: 1. Advised patient not to walk barefoot. 2. Explained the importance of daily foot checks for changes. 3. Stressed the importance of daily foot hygiene, including bathing and complete drying. /glen/ DELLA MAC PA-C Signed: 10/09/2024 11:00 DELLA MAC [facility] Oct 09, 2024 10:38 AM PRIMARY CARE NOTE: LOCAL TITLE: PRIMARY CARE PROVIDER ESTABLISHED VISIT [facility] STANDARD TITLE: PRIMARY CARE NOTE DATE OF NOTE: OCT 09, 2024@10:38 ENTRY DATE: OCT 09, 2024@10:38:09 AUTHOR: DELLA MAC EXP COSIGNER: URGENCY: STATUS: COMPLETED PRIMARY CARE PROVIDER ESTABLISHED VISIT [facility] Has ADDENDA * presents for Annual Visit PCP:Dr. [place] SPECIALISTS:Civilian ortho/opto SUBJECTIVE HPI: is a 54 y/o patient to clinic today for an annual VA appt to discuss chronic issues to include type 2 diabetes and hypertension. Patient reports that he continues to follow-up with his civilian primary care provider every 6 to 12 months secondary to his chronic medical conditions. Patient says that he is up- to-date on colonoscopies which he completed through his civilian primary care provider's office 3 years ago. Patient states that at this time he continues to adhere to a low carbohydrate diet but is not on any particular exercise program. Patient also says that he has a skin lesion to his right mid back area and would like that looked at in the clinic today. Of note the patient did not have lab work done prior to today's appointment but will have labs drawn in the clinic today. Patient denies headaches, chest pain, SOB, problems with bowel/bladder, or swelling to the BLE. The patient has no other complaints in the clinic today. Smoking:N Colonoscopy:Y, 2021 with polyps, followed by civilian PCP Exercise:N Diet:Y, low carb Alcohol:4 drinks monthly Optometry:Y, civilian [employer] annually PERTINENT PMH: 1. Type 2 diabetes 2. Essential hypertension 3. Hyperlipidemia 4. Obesity 5. Left shoulder pain MEDICATIONS: Active Outpatient Medications (including Supplies): Active Outpatient Medications Status 1) ACCU-CHEK GUIDE (GLUCOSE) TEST STRIP USE 1 STRIP FOR BLOOD ACTIVE TEST ONCE A DAY Indication: FOR BLOOD SUGAR MONITORING 2) ALCOHOL PREP PAD USE/APPLY PAD TO AFFECTED AREA(S) ONCE A ACTIVE DAY NEEDED Indication: FOR SKIN CLEANSING 3) ATORVASTATIN CALCIUM 80MG TAB TAKE ONE-HALF TABLET BY MOUTH ACTIVE EVERY EVENING Indication: FOR HIGH CHOLESTEROL 4) EMPAGLIFLOZIN 25MG TAB TAKE ONE TABLET BY MOUTH ONCE A DAY ACTIVE Indication: FOR DIABETES 5) GLIPIZIDE 5MG TAB TAKE ONE TABLET BY MOUTH TWO TIMES A DAY ACTIVE BEFORE MEALS TAKE 30 MINUTES BEFORE EATING. Indication: FOR DIABETES 6) LANCET,SOFTCLIX USE LANCET FOR BLOOD TEST ONCE A DAY USE ACTIVE DIRECTED. Indication: FOR BLOOD SUGAR MONITORING 7) LISINOPRIL 20MG TAB TAKE ONE-HALF TABLET BY MOUTH ONCE A DAY ACTIVE Indication: FOR HIGH BLOOD PRESSURE 8) SEMAGLUTIDE 1MG/0.75ML INJ PEN 3ML INJECT 1MG UNDER THE SKIN ACTIVE EVERY WEEK Indication: FOR DIABETES Active Non-VA Medications Status 1) Non-VA ASPIRIN 81MG EC TAB 81MG BY MOUTH ONCE A DAY ACTIVE Indication: FOR CARDIOVASCULAR DISEASE 9 Total Medications ALLERGIES: FIRE ANTS, METFORMIN DATA REVIEW: HGA1C 8.0 H % 09/22/2023 09:11 Lipid Panel: TRIGLYCERIDE 331 H mg/dL 09/22/2023 09:11 CHOLESTEROL 139 mg/dL 09/22/2023 09:11 HDL(New) 39 L mg/dL 09/22/2023 09:11 DIRECT LDL 59 L mg/dL 09/22/2023 09:11 CALCULATED LDL comment mg/dL 09/22/2023 09:11 CMP: SODIUM 137 mEq/L 09/22/2023 09:11 POTASSIUM 3.9 mEq/L 09/22/2023 09:11 CHLORIDE 105 mEq/L 09/22/2023 09:11 UREA NITROGEN 17.7 mg/dL 09/22/2023 09:11 CREATININE 0.84 mg/dL 09/22/2023 09:11 CALCIUM 9.1 mg/dL 09/22/2023 09:11 PROTEIN 7.0 g/dL 09/22/2023 09:11 ALBUMIN 4.1 g/dL 09/22/2023 09:11 ALKALINE PHOSPHATASE 94 U/L 09/22/2023 09:11 ALT/SGPT 22 U/L 09/22/2023 09:11 AST/SGOT 20 U/L 09/22/2023 09:11 TOTAL BILIRUBIN 0.5 mg/dL 09/22/2023 09:11 CARBON DIOXIDE 20 L mEq/L 09/22/2023 09:11 GLUCOSE 208 H mg/dL 09/22/2023 09:11 EGFR (CKD-EPI 2020) 104.3 09/22/2023 09:11 CBC: WBC 7.2 10*3/uL 09/22/2023 09:11 RBC 5.45 10*6/uL 09/22/2023 09:11 HGB 16.0 g/dL 09/22/2023 09:11 HCT 48.7 H % 09/22/2023 09:11 MCV 89.4 fL 09/22/2023 09:11 MCH 29.4 pg 09/22/2023 09:11 MCHC 32.9 L g/dL 09/22/2023 09:11 RDW 14.0 % 09/22/2023 09:11 PLT 354 10*3/uL 09/22/2023 09:11 MPV 10.1 fL 09/22/2023 09:11 NEUTROPHILS, AUTO % 67 % 09/22/2023 09:11 LYMPHOCYTES, AUTO % 24 % 09/22/2023 09:11 MONOCYTES, AUTO % 6 % 09/22/2023 09:11 EOSINOPHILS, AUTO % 2 % 09/22/2023 09:11 BASOPHILS, AUTO % 1 % 09/22/2023 09:11 NEUTROPHILS, ABSOLUTE 4.82 10*3/uL 09/22/2023 09:11 LYMPHOCYTES, ABSOLUTE 1.77 10*3/uL 09/22/2023 09:11 MONOCYTES, ABSOLUTE 0.42 10*3/uL 09/22/2023 09:11 EOSINOPHILS, ABSOLUTE 0.13 10*3/uL 09/22/2023 09:11 BASOPHILS, ABSOLUTE 0.06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
--- OUTSIDE RECORDS SUMMARY | 2024-11-05 10:54 | XMS_ITS | Encounter Summary ---
Author Organization [facility] Address [address] [place] [address] Phone Care Team Providers Care Health Data Administrator Name Role Phone Kris Perla MD Primary Care Provider [phone] Chas Thurman MD Unavailable Reason for Visit * Reason Comments Medication Refill Encounter Details Date Type Department Care Team (Late st Contact Info) Description 09/26/2023 Refill [facility] - Family Medicine [facility] [address] [place] [address] Kris Perla MD [address] [address] Medication Refill Social History Tobacco Use Types Packs/Day Years Used Date Smoking Tobacco: Former Cigarettes 0.5 34.2 1 989 - 07/10/2022 Smokeless Tobacco: Former Chew Quit: 2000 Alcohol Use Standard Drinks/Week Comments Yes 0 (1 standard drink = 0.6 oz pur e alcohol) 1-2 beers a week [facility] Utilities Answer Date Recorded In the past [...] or relatives? Once a week 07/27/2023 Attends [employer] Not on file 07/26 Active Member [...] Total Score - Questions 1-9 0 10/2021 [facility] - Occupational [...] place to sleep or slept in a mcc (including now)? No 07/27/2023 Education Answer Date [...] Telephone Encounter - Kelly Flower RN - 09/27/2023 8:20 AM CDT Continue current dose? Per nursing clinical judgement, provider to review and approve the medication(s) order(s) if appropriate. Requested Prescriptions Pending Prescriptions Disp Refills tirzepatide (Mounjaro) 7.5 MG/0.5ML Solution Pen-injector [Pharmacy Med Name: MOUNJARO 7.5 MG/0.5 ML PEN] 2 mL 0 Sig: INJECT 7.5 MG BY SUBCUTANEOUS ROUTE ONCE A WEEK. GLP-1 Agonists Protocol Passed - 09/26/2023 6:58 AM Passed - Lipid panel result on file [...] 07/27/2023 97 <130 mg/dL Final Passed - Visit with relevant provider in past 6 months or upcoming 90 days Recent Visits Date Type Provider Dept 07/27/23 Office Visit Kris Perla MD [facility] 06/07/23 Office Visit Kris Perla MD [facility] 03/30/23 Office Visit Kris Perla MD [facility] Showing recent visits within past 182 days and meeting all other requirements Future Appointments No visits were found meeting these conditions. Showing future appointments within next 90 days and meeting all other requirements Passed - HgA1C result on record in past 6 months HGB-A1C Date Value Ref Range Status 08/10/2022 8.4 (A) 4 - 6 % Final HGB-A1C Date Value Ref Range Status 07/27/2023 7.2 (H) 4.0 - 6.0 % Final Passed - GFR on record in past 6 months GFR, EST. NONAFRICAN Date Value Ref Range Status 07/27/2023 >60 >=60 Final documented in this encounter Plan of Treatment Not on file documented as of this encounter Visit Diagnoses Not on filedocumented in this encounter Additional Health Concerns Assessment Noted Time PHQ-9 Depression Total Score: 0 01/24/20 21 3:00 PM CDT documented as of this encounter Care Teams Health Data Administrator Relationship Specialty Start Date End Date Kris Perla MD #2 [facility] [address] [place] [address] PCP - General Family Medicine 03/15/15 Chas Thurman MD #2 [facility] [address] [place] [address] Consulting Physician Colon and Rectal Surgery 03/18/22 documented as of this encounter
--- OUTSIDE RECORDS SUMMARY | 2024-11-05 10:54 | XMS_ITS | Encounter Summary ---
Author Organization [facility] Address [address] [place] [address] Phone Care Team Providers Care Human Resource Internship Name Role Phone Kris Perla MD Primary Care Provider [phone] Chas Thurman MD Unavailable Reason for Visit * Reason Comments Medication Refill Encounter Details Date Type Department Care Team (Late st Contact Info) Description 01/18/2023 [facility]ill [facility] [address] [place] [address] Kris Perla MD #[address] [address] Medication Refill Social History Tobacco Use Types [...] Telephone Encounter - Kelly Flower RN - 01/19/2023 3:28 PM CDT Per nursing clinical judgement, provider to review and approve the medication(s) order(s) if appropriate. Requested Prescriptions Pending Prescriptions Disp Refills Jardiance 25 MG Tablet [Pharmacy Med Name: JARDIANCE 25 MG TABLET] 30 Tablet 11 Sig: TAKE 1 TABLET BY MOUTH EVERY DAY SGLT2 Inhibitors Protocol Passed - 01/18/2023 5:32 PM Passed - Visit with relevant provider in past 6 months or upcoming 90 days Recent Visits Date Type Provider Dept 11/12/22 Office Visit Kris Perla MD [facility] 08/25/22 Office Visit Kris Perla MD [facility] 08/10/22 Office Visit Kris Perla MD [facility] Showing recent visits within past 182 days and meeting all other requirements Future Appointments Date Type Provider Dept 03/15/23 Appointment Kris Perla MD [facility] Showing future appointments within next 90 days and meeting all other requirements Passed - HgA1C on record in past 6 months HGB-A1C Date Value Ref Range Status 08/10/2022 8.4 (A) 4 - 6 % Final HGB-A1C Date Value Ref Range Status 11/04/2022 9.8 (H) 4.0 - 6.0 % Final Passed - GFR greater than or equal to 30 in past 6 months GFR, EST. NONAFRICAN Date Value Ref Range Status 11/04/2022 >60 >=60 Final documented in this encounter Plan of Treatment Not on file documented as of this encounter Visit Diagnoses Not on filedocumented in this encounter Additional Health Concerns Assessment Noted Time PHQ-9 Depression Total Score: 0 01/24/20 21 3:00 PM CDT documented as of this encounter Care Teams Human Resource Internship Relationship Specialty Start Date End Date Kris Perla MD #[address] [address] PCP - General Family Medicine 03/15/15 Chas Thurman MD #2 [facility] [address] [place] [address] Consulting Physician Colon and Rectal Surgery 03/18/22 documented as of this encounter
--- OUTSIDE RECORDS SUMMARY | 2024-11-05 10:54 | XMS_ITS | Encounter Summary ---
Author Organization [facility] Address [address] [place] [address] Phone Care Team Providers Care Side Splitter Name Role Phone Kris Perla MD Primary Care Provider [phone] Chas Thurman MD Unavailable Reason for Visit * Reason Comments Medication Refill Encounter Details Date Type Department Care Team (Late st Contact Info) Description 07/15/2023 Refill [facility] - Family Medicine [facility] [address] [place] [address] Kris Perla MD #[address] [address] Medication Refill Social History Tobacco Use Types Packs/Day Years Used Date Smoking Tobacco: Former Cigarettes 0.5 34.2 1 989 - 07/10/2022 Smokeless Tobacco: Former Chew Quit: 1999 Alcohol Use Standard Drinks/Week Comments Yes 0 (1 standard drink = 0.6 oz pur e alcohol) 1-2 beers a week [facility] Utilities Answer Date Recorded In the past 12 months has e electric, gas, oil, or water company threatened to shut off services in your home? No 06/07/2023 Social Connection and Isolation Panel Answer Date Recorded In a typical week, how many times do you talk on the phone with family, friends, or neighbors? More than three times a week 06/07/2023 How often do you get togethe r with friends or relatives? Once a week 06/07/2023 How often do you attend chur ch or methodist services? More than 4 times per year 06/07/2023 Do you belong to any clubs o r organizations such as confucianism groups, unions, fraternal or athletic groups, or school groups? Yes 06/07/2023 How often do you attend meet ings of the clubs or organizations you belong to? More than 4 times per year 06/07/2023 Are you , , di vorced, , never , or living with a partner? 06/07/2023 AUDIT-C Answer Date Recorded Q1: How often do you have a drink containing alc ohol? Monthly or less 06/07/2023 Q2: How many drinks containi ng alcohol do you have on a typical day when you are drinking? 5 or 6 06/07/2023 Q3: How often do you have si x or more drinks on one occasion? Less than monthly 06/07/2023 Overall Financial Resource Strain (CARDIA) Answe r Date Recorded How hard is it for you to pa y for the very basics like food, housing, medical care, and heating? Not hard at all 06/07/2023 PHQ-2 Answer Date Recorded Total Score - Questions 1-9 0 10/2021 [facility] - Occupational Stress Questionnaire Answer Date Recorded Do you feel stress - tense, restless, nervous, or anxious, or unable to sleep at night because your mind is troubled all the time - these days? Not at all 06/07/2023 Exercise Vital Sign Answer Date Recorde d On average, how many days pe r week do you engage in moderate to strenuous exercise (like a brisk walk)? 5 days 06/07/2023 On average, how many minutes do you engage in exercise at this level? 20 min 06/07/2023 Hunger Vital Sign Answer Date Recorded Within the past 12 months, y ou worried that your food would run out before you got the money to buy more. Never true 06/07/19 24 Within the past 12 months, t he food you bought just didn't last and you didn't have money to get more. Never true 06/07/2023 PRAPARE - Transportation Answer Date Re corded In the past 12 months, has l ack of transportation kept you from medical appointments or from getting medications? No 05/20 In the past 12 months, has l ack of transportation kept you from meetings, work, or from getting things needed for daily living? No 06/07/2023 Housing Stability Vital Sign Answer Anmol e Recorded In the last 12 months, was t here a time when you were not able to pay the mortgage or rent on time? Yes 06/07/2023 [address] of Places Lived in the Last Year Not on f ile 06/07/2023 Unstable Housing in the Last Year Not on file 06/07/2023 Education Answer Date Recorded What is the [...] Telephone Encounter - Kelly Flower RN - 07/16/2023 10:27 AM CDT Medication(s) refilled and signed per [facility] Chronic Medication Refill Standing Order for Pediatricand Adult Patients. Requested Prescriptions Pending Prescriptions Disp Refills lisinopril (PRINIVIL, ZESTRIL) 10 MG Tablet [Pharmacy Med Name: LISINOPRIL 10 MG TABLET] 90 Tablet 1 Sig: TAKE 1 TABLET BY MOUTH EVERY DAY AAYUSH Inhibitors Protocol Passed - 07/15/2023 4:02 PM Passed - Serum potassium on record in past 12 months POTASSIUM Date Value Ref Range Status 03/30/2023 4.0 3.5 - 5.1 mmol/L Final Passed - Blood pressure on record in past 12 months Clinician-entered: BP Readings from Last 3 Encounters: 06/07/23 132/80 03/30/23 128/80 11/12/22 126/78 Patient-entered: No data recorded Passed - Visit with relevant provider in past 12 months or upcoming 90 days Recent Visits Date Type Provider Dept 06/07/23 Office Visit Kris Perla MD [facility] 03/30/23 Office Visit Kris Perla MD [facility] 11/12/22 Office Visit Kris Perla MD [facility] 08/25/22 Office Visit Kris Perla MD [facility] 08/10/22 Office Visit Kris Perla MD [facility] Showing recent visits within past 365 days and meeting all other requirements Future Appointments Date Type Provider Dept 07/27/23 Appointment Kris Perla MD [facility] Showing future appointments within next 90 days and meeting all other requirements Passed - GFR on record in past 12 months GFR, EST. NONAFRICAN Date Value Ref Range Status 03/30/2023 >60 >=60 Final documented in this encounter Plan of Treatment Not on file documented as of this encounter Visit Diagnoses Not on filedocumented in this encounter Additional Health Concerns Assessment Noted Time PHQ-9 Depression Total Score: 0 01/24/20 21 3:00 PM CDT documented as of this encounter Care Teams Side Splitter Relationship Specialty Start Date End Date Kris Perla MD #2 [facility] [address] [place] [address] PCP - General Family Medicine 03/15/15 Chas Thurman MD #2 [facility] [address] [place] [address] Consulting Physician Colon and Rectal Surgery 03/18/22 documented as of this encounter
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
--- OUTSIDE RECORDS SUMMARY | 2024-11-05 10:56 | XMS_ITS | Continuity of Care Document ---
Author Name [facility] Organization [facility] Care Team Providers Care Balloon Maker Name Role Phone [facility] Unavailable Unavailable Problems Combined list of problems from Department of Defense and Veterans Affairs facilities. It does not include entries that were removed or entered in error. Problem Status Onset Date Problem Type Date of Resolution Comments Source Allergic rhinitis Active Condition [facility] Benign essential hypertension (SNOMED CT 2431119) Active Condition [facility] Exposure to potentially hazardous substance Active Condition [facility] Hyperlipidemia Active Condition [facility] Low back pain Active Condition [facility] Mixed anxiety and depressive disorder Active Condition [facility] Morbid obesity (SNOMED CT 683326226) Active Condition [facility] Tobacco user (SNOMED CT 306524632) Active Condition [facility] Type 2 diabetes mellitus Active Condition [facility] Abdominal pain (SNOMED CT 57380269) Inactive Condition 09/22/2023 [facility] Constipation (SNOMED CT 63985690) Inactive Condition 09/22/2023 [facility] Elevated blood pressure reading without diagnosis of hypertension Inactive Condition 09/22/2023 [facility] Foot Pain (ICD-9-CM 719.47) Inactive Condition 09/22/2023 [facility] Palpitations Inactive Condition 09/22/2023 [facility] Plantar Fasciitis Inactive Condition 09/22/2023 [facility] Routine General Medical Examination at a Health Care Facility * Inactive Condition 09/22/2023 [facility] Unresolved Inactive Condition 09/22/2023 [facility] Diagnosis: ICD-10-CM D48.5 Neoplasm of uncertain behavior of skin Active Diagnosis [facility] Diagnosis: ICD-10-CM E11.9 Type 2 diabetes mellitus without complications Active Diagnosis [facility] Diagnosis: ICD-10-CM F43.20 Adjustment disorder, unspecified Active Diagnosis [facility] Medications Combined list of outpatient medications [...] A DAY ORAL ACTIVE DELLA MAC 2023 [facility] ATORVASTATI N CA 80MG TAB TAKE ONE-HALF TABLET BY MOUTH EVERY EVENING ORAL 10/28/2024 [id number] 5 SUSAN RIZO 2023 45 [facility] EMPAGLIFLOZ IN 25MG TAB TAKE ONE TABLET BY MOUTH ONCE A DAY ORAL SUSPEND ED 10/10/2025 [id number] 5 DELLA MAC 2024 90 [facility] EMPAGLIFLOZ IN 25MG TAB TAKE ONE TABLET BY MOUTH ONCE A DAY ORAL DISCONT INUED 10/28/2024 [id number] 5 SUSAN RIZO 2023 90 [facility] GLIPIZIDE 5MG TAB TAKE ONE TABLET BY MOUTH TWO TIMES A DAY BEFORE MEALS TAKE 30 MINUTES BEFORE EATING. ORAL 10/28/2024 [id number] 5 SUSAN RIZO 2023 180 [facility] LISINOPRIL 20MG TAB TAKE ONE-HALF TABLET BY MOUTH ONCE A DAY ORAL 10/28/2024 [id number] 5 SUSAN RIZO 2023 45 [facility] SEMAGLUTIDE 1MG/0.75ML INJ,SOLN,PE N,3ML INJECT 1MG UNDER THE SKIN EVERY WEEK FOR DIABETES SUBCUT ANEOUS SUSPEND ED 10/10/2025 [id number] 5 DELLA MAC 2024 3 [facility] SEMAGLUTIDE 1MG/0.75ML INJ,SOLN,PE N,3ML INJECT 1MG UNDER THE SKIN EVERY WEEK FOR DIABETES SUBCUT ANEOUS DISCONT INUED 05/06/2025 [id number] 5 SUSAN RIZO 2024 3 [facility] SEMAGLUTIDE 1MG/0.75ML INJ,SOLN,PE N,3ML INJECT 1MG UNDER THE SKIN EVERY WEEK SUBCUT ANEOUS DISCONT INUED 11/15/2024 [id number] 5 SUSAN RIZO 2023 1 [facility] SEMAGLUTIDE 2MG/0.75ML INJ,SOLN,PE N,3ML INJECT 2MG UNDER THE SKIN EVERY WEEK FOR DIABETES SUBCUT ANEOUS DISCONT INUED BY MICHELLE R 11/02/2024 [id number] 4 SUSAN RIZO 2023 1 [facility] TERBINAFINE HCL 1% CREAM,TOP APPLY SPARINGL Y TO AFFECTED AREA(S) TWICE A DAY FOR FUNGAL SKIN INFECTIO N TOPICA L ACTIVE 10/10/2025 [id number] 5 DELLA MAC 2024 90 [facility] TRIAMCINOLO NE ACETONIDE 0.1% OINT,TOP APPLY LIGHTLY TO AFFECTED AREA(S) TWICE DAILY NEEDED FOR ATOPIC DERMATIT IS (EXTERNA L USE ONLY) TOPICA L ACTIVE 10/17/2025 [id number] 5 MERYL GUTIÉRREZ 2024 80 [facility] N Allergies, Adverse Reactions, Alerts Combined list of allergies from Department of Defense and Veterans Affairs facilities. It does not include entries that were removed or entered in error. Substance Category Reaction Severity Reaction type Status Date Reported Comments Source FIRE ANTS Propensity to adverse reaction (finding) Edema active 11/14/2008 [facility] METFORMIN Propensity to adverse reactions to drug (finding) Diarrhea SEVERE active 10/28/2023 [facility] Immunizations Combined list of available immunizations from the Department of Defense and Veterans Affairs facilities. Immunization Series Date Given Administered By Site Reaction Lot Number CVX Code Drug Dairy Hand Status Comments Source PNEUMOCOCCAL, UNSPECIFIED FORMULATION 2012 109 complet ed [facility] TDAP 2012 115 complet ed Left Deltoid [facility] Results Combined list of recent chemistry, hematology and other laboratory results from Department of Defense and Veterans Affairs, ranging from 15 months to all on record, depending upon the facility. Order Name Results Value Reference Range Date Interpretation Specimen Comments Source CBC LEUKOCYTES [#/VOLUME] IN BLOOD BY AUTOMATED COUNT 8.3 10*3/u L 3.6 - 11.2 10/09 Specimen Type: BLOOD No comment entered. Ordering Provider: JAIME MAC Report Released Date/Time: Sep 22, 2023 09:05 AM Reporting Lab: [facility] [address] Performing Lab: [facility] [address] [place] [phone] [place] [address] [facility] CBC ERYTHROCYTE S [#/VOLUME] IN BLOOD BY AUTOMATED COUNT 5.65 10*6/u L 4.10 - 5.70 10/09 Specimen Type: BLOOD No comment entered. Ordering Provider: JAIME MAC Report Released Date/Time: Sep 22, 2023 09:05 AM Reporting Lab: [facility] [address] Performing Lab: [facility] [address] [facility] CBC HEMOGLOBIN [MASS/VOLUM E] IN BLOOD 16.4 g/dL 13.1 - 16.8 10/09 Specimen Type: BLOOD No comment entered. Ordering Provider: JAIME MAC Report Released Date/Time: Sep 22, 2023 09:05 AM Reporting Lab: [facility] [address] Performing Lab: [facility] [address] [place] [phone] [facility] CBC HEMATOCRIT [VOLUME FRACTION] OF BLOOD 48.9 38.2 - 48.4 10/09 H Specimen Type: BLOOD No comment entered. Ordering Provider: JAIME MAC Report Released Date/Time: Sep 22, 2023 09:05 AM Reporting Lab: [place] [address] [facility] [address] Performing Lab: [address] [address] [facility] CBC MCV [ENTITIC VOLUME] BY AUTOMATED COUNT 86.5 fL 80.0 - 100.0 10/09 Specimen Type: BLOOD No comment entered. Ordering Provider: JAIME MAC Report Released Date/Time: Sep 22, 2023 09:05 AM Reporting Lab: [place] [address] [facility] [address] Performing Lab: [address] [phone] [facility] CBC MCH [ENTITIC MASS] BY AUTOMATED COUNT 29.0 pg 27.0 - 34.0 10/09 Specimen Type: BLOOD No comment entered. Ordering Provider: JAIME MAC Report Released Date/Time: Sep 22, 2023 09:05 AM Reporting Lab: [place] [address] [facility] [address] Performing Lab: [phone] [place] [address] [facility] CBC MCHC [MASS/VOLUM E] BY AUTOMATED COUNT 33.5 g/dL 33.0 - 36.0 10/09 Specimen Type: BLOOD No comment entered. Ordering Provider: JAIME MAC Report Released Date/Time: Sep 22, 2023 09:05 AM Reporting Lab: [place] [address] [facility] [address] Performing Lab: [phone] [facility] CBC PLATELETS [#/VOLUME] IN BLOOD BY AUTOMATED COUNT 297 10*3/u L 150 - 400 10/09 Specimen Type: BLOOD No comment entered. Ordering Provider: JAIME MAC Report Released Date/Time: Sep 22, 2023 09:05 AM Reporting Lab: [address] [phone] Performing Lab: [facility] [address] [facility] [address] [facility] CBC PLATELET MEAN VOLUME [ENTITIC VOLUME] IN BLOOD BY AUTOMATED COUNT 10.2 fL 7.5 - 11.2 10/09 Specimen Type: BLOOD No comment entered. Ordering Provider: JAIME MAC Report Released Date/Time: Sep 22, 2023 09:05 AM Reporting Lab: [facility] 9[address] [facility] [address] Performing Lab: [facility] 91 [facility] [address] [facility] CBC ERYTHROCYTE DISTRIBUTIO N WIDTH [RATIO] BY AUTOMATED COUNT 13.4 11.8 - 15.1 10/09 Specimen Type: BLOOD No comment entered. Ordering Provider: JAIME MAC Report Released Date/Time: Sep 22, 2023 09:05 AM Reporting Lab: [facility] 9[address] [facility] [phone] Performing Lab: [facility] 9[address] [facility] [phone] [facility] CBC LYMPHOCYTES /100 LEUKOCYTES IN BLOOD BY AUTOMATED COUNT 19 10/09 Specimen Type: BLOOD No comment entered. Ordering Provider: JAIME MAC Report Released Date/Time: Sep 22, 2023 09:05 AM Reporting Lab: [facility] [address] [facility] [address] Performing Lab: [facility] [address] [facility] [address] [facility] CBC MONOCYTES/1 00 LEUKOCYTES IN BLOOD BY AUTOMATED COUNT 6 10/09 Specimen Type: BLOOD No comment entered. Ordering Provider: JAIME MAC Report Released Date/Time: Sep 22, 2023 09:05 AM Reporting Lab: [facility] [address] [facility] [address] Performing Lab: [facility] 9[address] [facility] [address] [facility] CBC NEUTROPHILS /100 LEUKOCYTES IN BLOOD BY AUTOMATED COUNT 72 10/09 Specimen Type: BLOOD No comment entered. Ordering Provider: JAIME MAC Report Released Date/Time: Sep 22, 2023 09:05 AM Reporting Lab: [facility] [address] [facility] [address] Performing Lab: [facility] 91 [facility] [address] [facility] CBC EOSINOPHILS /100 LEUKOCYTES IN BLOOD BY AUTOMATED COUNT 1 10/09 Specimen Type: BLOOD No comment entered. Ordering Provider: JAIME MAC Report Released Date/Time: Sep 22, 2023 09:05 AM Reporting Lab: [facility] [address] [place], [place] [phone] Performing Lab: [facility] [address] [place] [phone] [facility] CBC BASOPHILS/1 00 LEUKOCYTES IN BLOOD BY AUTOMATED COUNT 1 10/09 Specimen Type: BLOOD No comment entered. Ordering Provider: JAIME MAC Report Released Date/Time: Sep 22, 2023 09:05 AM Reporting Lab: [facility] [address] [facility] [address] Performing Lab: [facility] [address] [place] [phone] [facility] CBC LYMPHOCYTES [#/VOLUME] IN BLOOD BY AUTOMATED COUNT 1.59 10*3/u L 0.77 - 4.50 10/09 Specimen Type: BLOOD No comment entered. Ordering Provider: JAIME MAC Report Released Date/Time: Sep 22, 2023 09:05 AM Reporting Lab: [facility] 91 [facility] [phone] Performing Lab: [facility] [address] [place] [phone] [facility] CBC MONOCYTES [#/VOLUME] IN BLOOD BY AUTOMATED COUNT 0.51 10*3/u L 0.19 - 0.80 10/09 Specimen Type: BLOOD No comment entered. Ordering Provider: JAIME MAC Report Released Date/Time: Sep 22, 2023 09:05 AM Reporting Lab: [place] [address] Performing Lab: [address] [phone] [facility] CBC NEUTROPHILS [#/VOLUME] IN BLOOD BY AUTOMATED COUNT 5.97 10*3/u L 2.10 - 8.00 10/09 Specimen Type: BLOOD No comment entered. Ordering Provider: JAIME MAC Report Released Date/Time: Sep 22, 2023 09:05 AM Reporting Lab: [place] [address] Performing Lab: [address] [facility] CBC EOSINOPHILS [#/VOLUME] IN BLOOD BY AUTOMATED COUNT 0.11 10*3/u L 0.00 - 0.60 10/09 Specimen Type: BLOOD No comment entered. Ordering Provider: JAIME MAC Report Released Date/Time: Sep 22, 2023 09:05 AM Reporting Lab: [place] [address] Performing Lab: [address] [phone] [place] [address] [facility] CBC BASOPHILS [#/VOLUME] IN BLOOD BY AUTOMATED COUNT 0.05 10*3/u L 0.00 - 0.20 10/09 Specimen Type: BLOOD No comment entered. Ordering Provider: JAIME MAC Report Released Date/Time: Sep 22, 2023 09:05 AM Reporting Lab: [place] [address] Performing Lab: [address] [phone] [place] [address] [facility] COMPREHENS VIOLETTA METABOLIC PANEL CREATININE [MASS/VOLUM E] IN SERUM OR PLASMA 0.68 mg/dL 0.7 - 1.3 10/09 L Specimen Type: PLASMA Comment: No hemolysis noted. Ordering Provider: JAIME MAC Report Released Date/Time: Sep 22, 2023 09:05 AM Reporting Lab: [address] [phone] Performing Lab: [facility] [address] [place] [phone] [place] [address] [facility] COMPREHENS VIOLETTA METABOLIC PANEL UREA NITROGEN [MASS/VOLUM E] IN SERUM OR PLASMA 12.8 mg/dL 9.0 - 25.0 10/09 Specimen Type: PLASMA Comment: No hemolysis noted. Ordering Provider: JAIME MAC Report Released Date/Time: Sep 22, 2023 09:05 AM Reporting Lab: [address] [phone] Performing Lab: [phone] [place] [address] [facility] COMPREHENS VIOLETTA METABOLIC PANEL GLUCOSE [MASS/VOLUM E] IN SERUM OR PLASMA 134 mg/dL 72 - 99 10/09 H Specimen Type: PLASMA Comment: No hemolysis noted. Ordering Provider: JAIME MAC Report Released Date/Time: Sep 22, 2023 09:05 AM Reporting Lab: [address] [phone] Performing Lab: [address] [phone] [place] [address] [facility] COMPREHENS VIOLETTA METABOLIC PANEL SODIUM [MOLES/VOLU ME] IN SERUM OR PLASMA 138 meq/L 136 - 145 10/09 Specimen Type: PLASMA Comment: No hemolysis noted. Ordering Provider: JAIME MAC Report Released Date/Time: Sep 22, 2023 09:05 AM Reporting Lab: [facility] [address] [place] [phone] Performing Lab: [address] [phone] [facility] COMPREHENS VIOLETTA METABOLIC PANEL POTASSIUM [MOLES/VOLU ME] IN SERUM OR PLASMA 4.2 meq/L 3.5 - 5 10/09 Specimen Type: PLASMA Comment: No hemolysis noted. Ordering Provider: JAIME MAC Report Released Date/Time: Sep 22, 2023 09:05 AM Reporting Lab: [place] [address] [facility] [address] Performing Lab: [facility] 91 [facility] [address] [facility] COMPREHENS VIOLETTA METABOLIC PANEL CHLORIDE [MOLES/VOLU ME] IN SERUM OR PLASMA 108 meq/L 98 - 107 10/09 H Specimen Type: PLASMA Comment: No hemolysis noted. Ordering Provider: JAIME MAC Report Released Date/Time: Sep 22, 2023 09:05 AM Reporting Lab: [place] [address] [facility] [address] Performing Lab: [place] [address] [facility] [address] [facility] COMPREHENS VIOLETTA METABOLIC PANEL CARBON DIOXIDE, TOTAL [MOLES/VOLU ME] IN SERUM OR PLASMA 21 meq/L 22 - 31 10/09 L Specimen Type: PLASMA Comment: No hemolysis noted. Ordering Provider: JAIME MAC Report Released Date/Time: Sep 22, 2023 09:05 AM Reporting Lab: [place] [address] [facility] [address] Performing Lab: [place] [address] [facility] [address] [facility] COMPREHENS VIOLETTA METABOLIC PANEL CALCIUM [MASS/VOLUM E] IN SERUM OR PLASMA 9.4 mg/dL 8.4 - 10.4 10/09 Specimen Type: PLASMA Comment: No hemolysis noted. Ordering Provider: JAIME MAC Report Released Date/Time: Sep 22, 2023 09:05 AM Reporting Lab: [place] [address] [facility] [address] Performing Lab: [address] [phone] [facility] COMPREHENS VIOLETTA METABOLIC PANEL PROTEIN [MASS/VOLUM E] IN SERUM OR PLASMA 7.3 g/dL 6 - 8.6 10/09 Specimen Type: PLASMA Comment: No hemolysis noted. Ordering Provider: JAIME MAC Report Released Date/Time: Sep 22, 2023 09:05 AM Reporting Lab: [place] [address] [facility] [phone] Performing Lab: [place] [address] [facility] [address] [facility] COMPREHENS VIOLETTA METABOLIC PANEL ALBUMIN [MASS/VOLUM E] IN SERUM OR PLASMA 4.4 g/dL 3.4 - 5 10/09 Specimen Type: PLASMA Comment: No hemolysis noted. Ordering Provider: JAIME MAC Report Released Date/Time: Sep 22, 2023 09:05 AM Reporting Lab: [place] [address] [facility] [address] Performing Lab: [place] [address] [facility] [address] [facility] COMPREHENS VIOLETTA METABOLIC PANEL BILIRUBIN.T OTAL [MASS/VOLUM E] IN SERUM OR PLASMA 0.4 mg/dL 0.2 - 1.2 10/09 Specimen Type: PLASMA Comment: No hemolysis noted. Ordering Provider: JAIME MCA Report Released Date/Time: Sep 22, 2023 09:05 AM Reporting Lab: [place] [address] [facility] [address] Performing Lab: [place] [address] [facility] [address] [facility] COMPREHENS VIOLETTA METABOLIC PANEL ALKALINE PHOSPHATASE [ENZYMATIC ACTIVITY/VO LUME] IN SERUM OR PLASMA 85 U/L 40 - 150 10/09 Specimen Type: PLASMA Comment: No hemolysis noted. Ordering Provider: JAIME MAC Report Released Date/Time: Sep 22, 2023 09:05 AM Reporting Lab: [place] [address] [facility] [address] Performing Lab: [place] [address] [facility] [phone] [place] [address] [facility] COMPREHENS VIOLETTA METABOLIC PANEL ASPARTATE AMINOTRANSF ERASE [ENZYMATIC ACTIVITY/VO LUME] IN SERUM OR PLASMA 23 U/L 5 - 34 10/09 Specimen Type: PLASMA Comment: No hemolysis noted. Ordering Provider: JAIME MAC Report Released Date/Time: Sep 22, 2023 09:05 AM Reporting Lab: [place] [address] [facility] [phone] Performing Lab: [place] [address] [facility] [address] [facility] COMPREHENS VIOLETTA METABOLIC PANEL ALANINE AMINOTRANSF ERASE [ENZYMATIC ACTIVITY/VO LUME] IN SERUM OR PLASMA 26 U/L 8 - 40 10/09 Specimen Type: PLASMA Comment: No hemolysis noted. Ordering Provider: JAIME MAC Report Released Date/Time: Sep 22, 2023 09:05 AM Reporting Lab: [place] [address] [facility] [address] Performing Lab: [place] [address] [facility] [address] [facility] COMPREHENS VIOLETTA METABOLIC PANEL GLOMERULAR FILTRATION RATE/1.73 SQ M.PREDICTED [VOLUME RATE/AREA] IN SERUM, PLASMA OR BLOOD BY CREATININE- BASED FORMULA (CKD-EPI 2020) 109.8 60 10/09 Specimen Type: PLASMA Comment: No hemolysis noted. Ordering Provider: JAIME MAC Report Released Date/Time: Sep 22, 2023 09:05 AM Reporting Lab: [facility] [address] [facility] [address] Performing Lab: [facility] 91 [facility] [address] [facility] HGA1C HEMOGLOBIN A1C/HEMOGLO BIN.TOTAL IN BLOOD 8.4 4.0 - 6.0 10/09 H Specimen Type: BLOOD No comment entered. Ordering Provider: JAIME MAC Report Released Date/Time: Sep 22, 2023 09:05 AM Reporting Lab: [facility] [address] [facility] [address] Performing Lab: [place] [address] [facility] [address] [facility] LIPID PANEL (STL) CHOLESTEROL [MASS/VOLUM E] IN SERUM OR PLASMA 131 mg/dL 0 - 200 10/09 Specimen Type: PLASMA Comment: No hemolysis noted. Ordering Provider: JAIME MAC Report Released Date/Time: Sep 22, 2023 09:05 AM Reporting Lab: [place] [address] [facility] [address] Performing Lab: [place] [address] [facility] [address] [facility] LIPID PANEL (STL) TRIGLYCERID E [MASS/VOLUM E] IN SERUM OR PLASMA 183 mg/dL 0 - 150 10/09 H Specimen Type: PLASMA Comment: No hemolysis noted. Ordering Provider: JAIME MAC Report Released Date/Time: Sep 22, 2023 09:05 AM Reporting Lab: [place] [address] [facility] [address] Performing Lab: [address] [address] [facility] LIPID PANEL (STL) CHOLESTEROL IN LDL [MASS/VOLUM E] IN SERUM OR PLASMA BY CALCULATION 49 mg/dL 10/09 Specimen Type: PLASMA Comment: No hemolysis noted. Ordering Provider: JAIME MAC Report Released Date/Time: Sep 22, 2023 09:05 AM Reporting Lab: [place] [address] [facility] [address] Performing Lab: [address] [address] [facility] LIPID PANEL (STL) CHOLESTEROL IN HDL [MASS/VOLUM E] IN SERUM OR PLASMA 45 mg/dL 40 10/09 Specimen Type: PLASMA Comment: No hemolysis noted. Ordering Provider: JAIME MAC Report Released Date/Time: Sep 22, 2023 09:05 AM Reporting Lab: [place] [address] [facility] [address] Performing Lab: [facility] [address] [facility] [address] [facility] MICRAL/CRE AT PROFILE (STL) ALBUMIN [MASS/VOLUM E] IN URINE 8.5 mg/L 10/09 Specimen Type: URINE No comment entered. Ordering Provider: JAIME MAC Report Released Date/Time: Sep 22, 2023 09:05 AM Reporting Lab: [address] [address] Performing Lab: [place] [address] [facility] [address] [facility] MICRAL/CRE AT PROFILE (STL) ALBUMIN/CRE ATININE [MASS RATIO] IN URINE 9 mg/g 0 - 29 10/09 Specimen Type: URINE No comment entered. Ordering Provider: JAIME MAC Report Released Date/Time: Sep 22, 2023 09:05 AM Reporting Lab: [address] [address] Performing Lab: [address] [address] [facility] MICRAL/CRE AT PROFILE (STL) CREATININE [MASS/VOLUM E] IN URINE 89.6 mg/dL 63 - 166 10/09 Specimen Type: URINE No comment entered. Ordering Provider: JAIME MAC Report Released Date/Time: Sep 22, 2023 09:05 AM Reporting Lab: [address] [address] Performing Lab: [address] [address] [facility] PROST. SPECIFIC AG.(PB-STL ) PROSTATE SPECIFIC AG [...] Sep 22, 2023 09:05 AM Reporting Lab: [place] [address] Performing Lab: [address] [facility] TSH W/ REFLEX FT4 (STL) THYROTROPIN [UNITS/VOLU ME] IN SERUM OR PLASMA 0.416 u[IU]/ mL 0.47 - 5 10/09 L Specimen Type: PLASMA Comment: No hemolysis noted. Ordering Provider: JAIME MAC Report Released Date/Time: Sep 22, 2023 09:05 AM Reporting Lab: [place] [address] Performing Lab: [address] [facility] TSH W/ REFLEX FT4 (STL) FREE T4(REFLEX) 1.07 ng/mL 0.7 - 1.48 10/09 Specimen Type: PLASMA Comment: No hemolysis noted. Ordering Provider: JAIME MAC Report Released Date/Time: Sep 22, 2023 09:05 AM Reporting Lab: [place] [address] Performing Lab: [address] [facility] VITAMIN D, 25-HYDROXY 25-HYDROXYV ITAMIN [...] Sep 22, 2023 09:05 AM Reporting Lab: [address] [phone] Performing Lab: [address] [facility] COMPREHENS VIOLETTA METABOLIC PANEL CREATININE [MASS/VOLUM E] IN SERUM OR PLASMA 0.84 mg/dL 0.7 - 1.3 09/21 Specimen Type: PLASMA Comment: LDL calculation invalid when Triglyceride exceeds 250 mg/dl No hemolysis noted. Ordering Provider: JAIME MAC Report Released Date/Time: Sep 22, 2023 08:54 AM Reporting Lab: [facility] [phone] Performing Lab: [facility] [address] [facility] [address] [facility] COMPREHENS VIOLETTA METABOLIC PANEL UREA NITROGEN [MASS/VOLUM E] IN SERUM OR PLASMA 17.7 mg/dL 9.0 - 25.0 09/21 Specimen Type: PLASMA Comment: LDL calculation invalid when Triglyceride exceeds 250 mg/dl No hemolysis noted. Ordering Provider: JAIME MAC Report Released Date/Time: Sep 22, 2023 08:54 AM Reporting Lab: [facility] [phone] Performing Lab: [place] [address] [facility] [address] [facility] COMPREHENS VIOLETTA METABOLIC PANEL GLUCOSE [MASS/VOLUM E] IN SERUM OR PLASMA 208 mg/dL 72 - 99 09/21 H Specimen Type: PLASMA Comment: LDL calculation invalid when Triglyceride exceeds 250 mg/dl No hemolysis noted. Ordering Provider: JAIME MAC Report Released Date/Time: Sep 22, 2023 08:54 AM Reporting Lab: [facility] [address] [facility] [phone] Performing Lab: [place] [address] [facility] [phone] [facility] COMPREHENS VIOLETTA METABOLIC PANEL SODIUM [MOLES/VOLU ME] IN SERUM OR PLASMA 137 meq/L 136 - 145 09/21 Specimen Type: PLASMA Comment: LDL calculation invalid when Triglyceride exceeds 250 mg/dl No hemolysis noted. Ordering Provider: JAIME MAC Report Released Date/Time: Sep 22, 2023 08:54 AM Reporting Lab: [facility] [address] [facility] [address] Performing Lab: [facility] [address] [facility] [phone] [place] [address] [facility] COMPREHENS VIOLETTA METABOLIC PANEL POTASSIUM [MOLES/VOLU ME] IN SERUM OR PLASMA 3.9 meq/L 3.5 - 5 09/21 Specimen Type: PLASMA Comment: LDL calculation invalid when Triglyceride exceeds 250 mg/dl No hemolysis noted. Ordering Provider: JAIME MAC Report Released Date/Time: Sep 22, 2023 08:54 AM Reporting Lab: [facility] [address] [facility] [phone] Performing Lab: [facility] [address] [facility] [phone] [place] [address] [facility] COMPREHENS VIOLETTA METABOLIC PANEL CHLORIDE [MOLES/VOLU ME] IN SERUM OR PLASMA 105 meq/L 98 - 107 09/21 Specimen Type: PLASMA Comment: LDL calculation invalid when Triglyceride exceeds 250 mg/dl No hemolysis noted. Ordering Provider: JAIME MAC Report Released Date/Time: Sep 22, 2023 08:54 AM Reporting Lab: [facility] [address] [place] [phone] Performing Lab: [place] [address] [facility] [phone] [place] [address] [facility] COMPREHENS VIOLETTA METABOLIC PANEL CARBON DIOXIDE, TOTAL [MOLES/VOLU ME] IN SERUM OR PLASMA 20 meq/L 22 - 31 09/21 L Specimen Type: PLASMA Comment: LDL calculation invalid when Triglyceride exceeds 250 mg/dl No hemolysis noted. Ordering Provider: JAIME MAC Report Released Date/Time: Sep 22, 2023 08:54 AM Reporting Lab: [facility] [address] [place] [phone] Performing Lab: [place] [address] [facility] [phone] [facility] COMPREHENS VIOLETTA METABOLIC PANEL CALCIUM [MASS/VOLUM E] IN SERUM OR PLASMA 9.1 mg/dL 8.4 - 10.4 09/21 Specimen Type: PLASMA Comment: LDL calculation invalid when Triglyceride exceeds 250 mg/dl No hemolysis noted. Ordering Provider: JAIME MAC Report Released Date/Time: Sep 22, 2023 08:54 AM Reporting Lab: [place] [address] [facility] [address] Performing Lab: [place] [address] [facility] [address] [facility] COMPREHENS VIOLETTA METABOLIC PANEL PROTEIN [MASS/VOLUM E] IN SERUM OR PLASMA 7.0 g/dL 6 - 8.6 09/21 Specimen Type: PLASMA Comment: LDL calculation invalid when Triglyceride exceeds 250 mg/dl No hemolysis noted. Ordering Provider: JAIME MAC Report Released Date/Time: Sep 22, 2023 08:54 AM Reporting Lab: [place] [address] [facility] [address] Performing Lab: [place] [address] [facility] [address] [facility] COMPREHENS VIOLETTA METABOLIC PANEL ALBUMIN [MASS/VOLUM E] IN SERUM OR PLASMA 4.1 g/dL 3.4 - 5 09/21 Specimen Type: PLASMA Comment: LDL calculation invalid when Triglyceride exceeds 250 mg/dl No hemolysis noted. Ordering Provider: JAIME MAC Report Released Date/Time: Sep 22, 2023 08:54 AM Reporting Lab: [place] [address] [facility] [address] Performing Lab: [place] [address] [facility] [phone] [facility] COMPREHENS VIOLETTA METABOLIC PANEL BILIRUBIN.T OTAL [MASS/VOLUM E] IN SERUM OR PLASMA 0.5 mg/dL 0.2 - 1.2 09/21 Specimen Type: PLASMA Comment: LDL calculation invalid when Triglyceride exceeds 250 mg/dl No hemolysis noted. Ordering Provider: JAIME MAC Report Released Date/Time: Sep 22, 2023 08:54 AM Reporting Lab: [place] [address] [facility] [phone] Performing Lab: [facility] [address] [facility] [phone] [facility] COMPREHENS VIOLETTA METABOLIC PANEL ALKALINE PHOSPHATASE [ENZYMATIC ACTIVITY/VO LUME] IN SERUM OR PLASMA 94 U/L 40 - 150 09/21 Specimen Type: PLASMA Comment: LDL calculation invalid when Triglyceride exceeds 250 mg/dl No hemolysis noted. Ordering Provider: JAIME MAC Report Released Date/Time: Sep 22, 2023 08:54 AM Reporting Lab: [facility] [address] [facility] [phone] Performing Lab: [place] [address] [facility] [phone] [facility] COMPREHENS VIOLETTA METABOLIC PANEL ASPARTATE AMINOTRANSF ERASE [ENZYMATIC ACTIVITY/VO LUME] IN SERUM OR PLASMA 20 U/L 5 - 34 09/21 Specimen Type: PLASMA Comment: LDL calculation invalid when Triglyceride exceeds 250 mg/dl No hemolysis noted. Ordering Provider: JAIME MAC Report Released Date/Time: Sep 22, 2023 08:54 AM Reporting Lab: [facility] [phone] Performing Lab: [place] [address] [facility] [address] [facility] COMPREHENS VIOLETTA METABOLIC PANEL ALANINE AMINOTRANSF ERASE [ENZYMATIC ACTIVITY/VO LUME] IN SERUM OR PLASMA 22 U/L 8 - 40 09/21 Specimen Type: PLASMA Comment: LDL calculation invalid when Triglyceride exceeds 250 mg/dl No hemolysis noted. Ordering Provider: JAIME MAC Report Released Date/Time: Sep 22, 2023 08:54 AM Reporting Lab: [facility] [address] [place] [phone] Performing Lab: [address] [phone] [facility] COMPREHENS VIOLETTA METABOLIC PANEL GLOMERULAR FILTRATION RATE/1.73 SQ M.PREDICTED [VOLUME RATE/AREA] IN SERUM, PLASMA OR BLOOD BY CREATININE- BASED FORMULA (CKD-EPI 2020) 104.3 60 09/21 Specimen Type: PLASMA Comment: LDL calculation invalid when Triglyceride exceeds 250 mg/dl No hemolysis noted. Ordering Provider: JAIME MAC Report Released Date/Time: Sep 22, 2023 08:54 AM Reporting Lab: [facility] [address] [facility] [address] Performing Lab: [facility] [address] [facility] [phone] [facility] LIPID PANEL (STL) CHOLESTEROL [MASS/VOLUM E] IN SERUM OR PLASMA 139 mg/dL 0 - 200 09/21 Specimen Type: PLASMA Comment: LDL calculation invalid when Triglyceride exceeds 250 mg/dl No hemolysis noted. Ordering Provider: JAIME MAC Report Released Date/Time: Sep 22, 2023 08:54 AM Reporting Lab: [address] [phone] Performing Lab: [address] [address] [facility] LIPID PANEL (STL) TRIGLYCERID E [MASS/VOLUM E] IN SERUM OR PLASMA 331 mg/dL 0 - 150 09/21 H Specimen Type: PLASMA Comment: LDL calculation invalid when Triglyceride exceeds 250 mg/dl No hemolysis noted. Ordering Provider: JAIME MAC Report Released Date/Time: Sep 22, 2023 08:54 AM Reporting Lab: [address] [address] Performing Lab: [facility] [address] [place] [phone] [facility] LIPID PANEL (STL) CHOLESTEROL IN LDL [MASS/VOLUM E] IN SERUM OR PLASMA BY CALCULATION commen tmg/dL 09/21 Specimen Type: PLASMA Comment: LDL calculation invalid when Triglyceride exceeds 250 mg/dl No hemolysis noted. Ordering Provider: JAIME MAC Report Released Date/Time: Sep 22, 2023 08:54 AM Reporting Lab: [facility] [address] [place] [phone] Performing Lab: [facility] [address] [place] [phone] [facility] LIPID PANEL (STL) CHOLESTEROL IN HDL [MASS/VOLUM E] IN SERUM OR PLASMA 39 mg/dL 40 09/21 L Specimen Type: PLASMA Comment: LDL calculation invalid when Triglyceride exceeds 250 mg/dl No hemolysis noted. Ordering Provider: JAIME MAC Report Released Date/Time: Sep 22, 2023 08:54 AM Reporting Lab: [facility] [address] [facility] [address] Performing Lab: [facility] [address] [facility] [address] [facility] LIPID PANEL (STL) CHOLESTEROL IN LDL [MASS/VOLUM E] IN SERUM OR PLASMA BY DIRECT ASSAY 59 mg/dL 100 09/21 L Specimen Type: PLASMA Comment: LDL calculation invalid when Triglyceride exceeds 250 mg/dl No hemolysis noted. Ordering Provider: JAIME MAC Report Released Date/Time: Sep 22, 2023 08:54 AM Reporting Lab: [facility] [address] [facility] [address] Performing Lab: [place] [address] [facility] [address] [facility] Vital Signs Combined list of inpatient and outpatient Vital Signs from Department of Defense and Veterans Affairs, ranging from 12 months to all on record, depending upon the facility. Vital Sign Value Date Comments Source SYSTOLIC BLOOD PRESSURE 126 10/09/2024 10:24:09 [facility] DIASTOLIC BLOOD PRESSURE 81 10/09/2024 10:24:09 [facility] PULSE OXIMETRY 96 % 10/09/2024 10:24:09 [facility] WEIGHT 260.1 10/09/2024 10:24:09 [facility] BMI 36 kg/m2 10/09/2024 10:24:09 [facility] PAIN 1 10/09/2024 10:24:09 [facility] TEMPERATURE 98.8 10/09/2024 10:24:09 [facility] PULSE 94 10/09/2024 10:24:09 [facility] RESPIRATION 20 10/09/2024 10:24:09 [facility] WEIGHT 262.5 12/13/2023 14:50:00 [facility] BMI 37 kg/m2 12/13/2023 14:50:00 [facility] Encounters Combined list of: 1) Encounters from [facility] facilities going backup to the last 18 months, not all VA inpatient encounters are included; 2) Encounters from the [facility] facilities going backup to 280 months. Location Location Details Encounter Type Encounter Number Reason For Visit Attending Provider ADM Date DC Date Status Disposition Source [facility] Outpatient Encounter [id number] 09/21 [facility] OFFICE O/P NEW MOD 45 MIN [id number] Diagnos is: ICD-10- CM E11.9 Type 2 diabete s mellitu s without complic ations [facility] ODD 09/21 [facility] Outpatient Encounter [id number] 09/22 [facility] N [facility] Outpatient Encounter [id number] ESTEF[facility]AT ODD 09/22 [facility] Outpatient Encounter [id number] ESTEFANIAT ODD 09/27 [facility] N [facility] Outpatient Encounter [id number] ENOC SANDERS O 10/24 [facility] Outpatient Encounter [id number] 10/27 [facility] MTMS BY PHARM ADDL 15 MIN [id number] Diagnos is: ICD-10- CM E11.9 Type 2 diabete s mellitu s without complic ations Carine RIZOIN B 10/27 [facility] QNHP OL DIG ASSMT&MGMT 5-10 [id number] Diagnos is: ICD-10- CM E11.9 Type 2 diabete s mellitu s without complic ations JOSH LANGE 11/01 [facility] MTMS BY PHARM EST 15 MIN [id number] Diagnos is: ICD-10- CM E11.9 Type 2 diabete s mellitu s without complic ations Cairne RIZO JAVAN B 11/09 [facility] Outpatient Encounter [id number] 11/14 [facility] [place] [id number] Diagnos is: ICD-10- CM E11.9 Type 2 diabete s mellitu s without complic ations KIM GONZALEZ 12/12 [facility] MTMS BY PHARM EST 15 MIN [id number] Diagnos is: ICD-10- CM E11.9 Type 2 diabete s mellitu s without complic ations Carine RIZO JAVAN B 12/23 [facility] Outpatient Encounter [id number] 01/11 [facility] MTMS BY PHARM EST 15 MIN [id number] Diagnos is: ICD-10- CM E11.9 Type 2 diabete s mellitu s without complic ations Carine RIZO JAVAN B 01/18 [facility] PSYTX W PT 30 MINUTES [id number] Diagnos is: ICD-10- CM F43.20 Adjustm ent disorde r, unspeci Chai Castro 02/23 [facility] MTMS BY PHARM EST 15 MIN [id number] Diagnos is: ICD-10- CM E11.9 Type 2 diabete s mellitu s without complic ations Carine RIZO B 05/23 [facility] Outpatient Encounter [id number] 10/06 [facility] Outpatient Encounter [id number] 10/09 [facility] OFFICE O/P EST MOD 30 MIN [id number] Diagnos is: ICD-10- CM E11.9 Type 2 diabete s mellitu s without complic ations MAC,T ODD 10/09 [facility] Outpatient Encounter [id number] 10/16 [facility] OFFICE O/P EST MOD 30 MIN [id number] Diagnos is: ICD-10- CM D48.5 Neoplas m of uncerta in behavio r of skin Eitan SPEARS 10/16 [facility] Outpatient Encounter [id number] Carine CORREA 10/16 [facility] Outpatient Encounter [id number] ROHIT CONDE 10/19 [facility] Outpatient Encounter [id number] SUAD OSORIO 10/25 [facility] Procedures Combined list of: 1) Procedures from [facility] facilities going back up to thelast 18 months, not all VA non-surgical procedures are included; 2) All procedures from the Department of Defense facilities. Procedure Procedure Type Code Date Perfomer Comments Sourc e TYPHOID VACCINE, CAPSULAR POLYSACCHARIDE (VICPS), FOR INTRAMUSCULAR USE 03/18/2000 [facility] PHARMACOLOGIC MANAGEMENT, INCLUDING PRESCRIPTION, USE, AND REVIEW OF MEDICATION WITH NO MORE THAN MINIMAL MEDICAL PSYCHOTHERAPY 11/26/1999 [facility] PHARMACOLOGIC MANAGEMENT, INCLUDING PRESCRIPTION, USE, AND REVIEW OF MEDICATION WITH NO MORE THAN MINIMAL MEDICAL PSYCHOTHERAPY 11/14/1999 [facility] THERAPEUTIC PROCEDURE, 1 OR MORE AREAS, EACH 15 MINUTES; THERAPEUTIC EXERCISES TO DEVELOP STRENGTH AND ENDURANCE, RANGE OF MOTION AND FLEXIBILITY 11/12/1999 [facility] APPLICATION OF A MODALITY TO 1 OR MORE AREAS; HOT OR COLD PACKS 11/11/1999 [facility] APPLICATION OF A MODALITY TO 1 OR MORE AREAS; HOT OR COLD PACKS 11/10/1999 [facility] PHARMACOLOGIC MANAGEMENT, INCLUDING PRESCRIPTION, USE, AND REVIEW OF MEDICATION WITH NO MORE THAN MINIMAL MEDICAL PSYCHOTHERAPY 11/07/1999 [facility] PURE TONE AUDIOMETRY (THRESHOLD); AIR ONLY 10/11/2001 [facility] SKIN TEST; TUBERCULOSIS, INTRADERMAL 06/07/2001 [facility] EDUCATIONAL SUPPLIES, SUCH A S BOOKS, TAPES, AND PAMPHLETS, FOR THE PATIENT'S EDUCATION AT COST TO PHYSICIAN OR OTHER QUALIFIED HEALTH STOCK CAR DRIVER 05/26/2001 [facility] PHYS/OTH QUALIFIED HEALTH STOCK CAR DRIVER QUALIFIED,EDUCATION,TRAIN,LIC ENSURE/REGULATION (WHEN APPLICABLE) EDUC SER RENDERED TO PATS IN A GRP SETTING (EG,,OBESITY,OR DIABETIC INSTRUCT) 05/24/2001 [facility] PURE TONE AUDIOMETRY (THRESHOLD); AIR ONLY 03/16/2001 [facility] THERAPEUTIC, PROPHYLACTIC OR DIAGNOSTIC INJECTION (SPECIFY MATERIAL INJECTED); SUBCUTANEOUS OR INTRAMUSCULAR 03/15/2001 [facility] APPLICATION OF FINGER SPLINT ; STATIC 09/06/2003 [facility] DEBRIDEMENT OF EXTENSIVE ECZEMATOUS OR INFECTED SKIN; UP TO 10% OF BODY SURFACE 08/30/2003 [facility] DEBRIDEMENT OF EXTENSIVE ECZEMATOUS OR INFECTED SKIN; UP TO 10% OF BODY SURFACE 08/28/2003 [facility] SIMPLE REPAIR OF SUPERFICIAL WOUNDS OF SCALP, NECK, AXILLAE, EXTERNAL GENITALIA, TRUNK AND/OR EXTREMITIES (INCLUDING HANDS AND FEET); 2.6 CM TO 7.5 CM 08/24/2003 [facility] URINALYSIS; QUALITATIVE OR SEMIQUANTITATIVE, EXCEPT IMMUNOASSAYS 08/16/2003 [facility] SKIN TEST; TUBERCULOSIS, INTRADERMAL 08/16/2003 [facility] COLLECTION OF VENOUS BLOOD B Y VENIPUNCTURE 08/14/2003 [facility] PURE TONE AUDIOMETRY (THRESHOLD); AIR ONLY [...] POSTOPERATIVE PERIOD REASON RELATED ORIGINAL PROCEDURE 05/18/2002 [facility] CLOSED TREATMENT OF DISTAL PHALANGEAL FRACTURE, FINGER OR THUMB; WITHOUT MANIPULATION, EACH 05/11/2002 [facility] DRESSINGS AND/OR DEBRIDEMENT OF PARTIAL-THICKNESS HUYNH, INITIAL OR SUBSEQUENT; MEDIUM (EG, WHOLE FACE OR WHOLE EXTREMITY, OR 5% TO 10% TOTAL BODY SURFACE AREA) 05/04/2002 [facility] MUSCLE TESTING, MANUAL (SEPARATE PROCEDURE); HAND (WITH OR WITHOUT COMPARISON WITH NORMAL SIDE) 05/04/2002 [facility] Social History Combined list of available smoking, tobacco, and other social history from Department of Defense and Veterans Affairs facilities. Social History Type Response Date Comment Sourc e Tobacco smoking status NHIS VA-TOBACCO USE FORMER CIGARETTES 10/09/2024 [facility] History of tobacco use VA-TOBACCO NEVER USED OTHER TYPE 10/09/2024 [facility] History of tobacco use VA-TOBACCO USER SOME DAYS 09/22/2023 [facility] History of tobacco use TOBACCO USER OFFERED MEDS 08/03/2017 [facility] History of tobacco use TOBACCO USER OFFERED MEDS 08/03/2017 [facility] History of tobacco use TOBACCO OFFERED PT MEDS (PROVIDER) 12/05/2012 [facility] History of tobacco use LIFETIME NON-USER OF TOBACCO 11/23/2012 [facility] This section is an empty social history section. [facility]
[2024-11-05 11:00] VITALS: BP 141/91; PULSE 80; RESP 16; TEMP 36.4; O2SAT 98
--- NOTE | 2024-11-05 11:11 | ED.SKABFB ---
HPI - Skin/Abscess/Foreign Bdy General Chief complaint: Skin/Abscess/Foreign Body Stated complaint: Left Thumb Skin Sore Time Seen by Provider: 11/05/24 11:11 Source: patient Mode of arrival: ambulatory Limitations: no limitations History of Present Illness HPI narrative: 54 y/o male with hx DM presented for c/o ingrown left thumbnail for one week. States he trimmed the side of the nail and cuticle before he developed redness, swelling and pain. Has had some bloody/pus draining from the site. He cleansed with alcohol and hydrogen peroxide, and started soaks. Related Data Home Medications ?Medication ?Instructions ?Recorded ?Confirmed ?Last Taken ?Type glipizide 5 mg tablet 5 mg PO DAILY 10/19/20 06/21/24 03/29/24 History sildenafil 100 mg tablet 100 mg PO HS PRN Sexual Activity 10/19/20 06/21/24 Unknown History aspirin 81 mg capsule 81 mg PO DAILY 06/16/23 06/21/24 03/23/24 History atorvastatin 40 mg tablet 40 mg PO HS 03/24/24 06/21/24 03/30/24 History empagliflozin 25 mg tablet 25 mg PO DAILY 03/24/24 06/21/24 03/30/24 History (Jardiance) lisinopril 10 mg tablet 10 mg PO DAILY 03/24/24 06/21/24 Unknown History semaglutide 1 mg/dose (4 mg/3 mL) 1 mg subcut WEEKLY 03/24/24 06/21/24 03/30/24 History subcutaneous pen injector (Ozempic) triamcinolone acetonide 0.1 % topical 11/05/24 Unknown History topical ointment Allergies Allergy/AdvReac Type Severity Reaction Status Date / Time metformin AdvReac Mild body aches Verified 11/05/24 11:03 Review of Systems Review of Systems: CONSTITUTIONAL: Denies body aches, fever, chills, or sweats. EYES: Denies visual changes, redness, or discharge. ENT: Denies rhinorrhea, congestion CARDIOVASCULAR: Denies chest pain, palpitations, or edema. RESPIRATORY: Denies cough or dyspnea. GASTROINTESTINAL: Denies abdominal pain, nausea, vomiting, or diarrhea. SKIN: reports ingrown thumbnail MUSCULOSKELETAL: Denies back pain, joint pain, or myalgia. NEUROLOGIC: Denies headache, numbness, tingling, or weakness. [facility] Past Medical History Medical History History of stress test Carpal tunnel syndrome Diabetes HTN (hypertension) Surgical History Surgical History History of carpal tunnel surgery Family History Family History Other Heart disease Social History Social History Smoking packs per day: 1 Smoking cigarettes per day: 20.0 Years smoked: 19 Smoking pack-years: 19.00 Smoking status: Former smoker Tobacco type: cigarettes Smoking end date: 09/22/22 Additional smoking assessment comments: using nicotine gum presently Alcohol intake: current Alcohol use details: Occasional Substance use: never Do You Feel Safe in your Home?: Yes Lack of Transportation: No Lack of Food: Never True Current Housing: I Have Housing Concerned About Future Housing: No Difficulty Paying Gas/Electric Bills: YES Difficulty Paying for Meds: No Currently Unemployed: No Education: Associate Degree Difficulty w/ Childcare or Family Care: No Living arrangements: with family Occupation/Education: occupation Spiritual care concerns: No Comments At time of signature, I have reviewed and agree with nursing past medical, surgical, social and family history unless otherwise noted. Please see nursing chart for further information. There is no relevant family history pertinent to the presenting complaint Exam Narrative: GENERAL: Well-appearing HEAD: Normocephalic, atraumatic. EYES: conjunctivae clear, and EOMI. ENT: Mucous membranes moist. Oropharynx without edema, erythema or lesions. NECK: Supple. No lymphadenopathy CHEST: Clear to auscultation. HEART: Regular rate and rhythm. SKIN: Warm, dry. Left thumbnail with ingrown nail and paronychia, erythema, no active drainage or fluctuance. Tender. Mild swelling. NEURO: Alert and oriented x3. Course Course Emergency Course: Patient is aware of diagnosis, understands and agrees to treatment plan. Anticipatory guidance given. Patient agrees to follow-up as directed and is aware of reasons to seek care at the emergency department. Portions of this record may have been created with voice recognition software Level of Care: Express Care Visit Vital Signs Vital signs: Vital Signs Temperature 97.6 F 11/05/24 11:00 Pulse Rate 80 11/05/24 11:00 Respiratory Rate 16 11/05/24 11:00 Blood Pressure 141/91 H 11/05/24 11:00 Pulse Oximetry 98 11/05/24 11:00 Oxygen Delivery Room Air 11/05/24 11:00 Temperature 97.6 F 11/05/24 11:00 Pulse Rate 80 11/05/24 11:00 Respiratory Rate 16 11/05/24 11:00 Blood Pressure 141/91 H 11/05/24 11:00 Pulse Oximetry 98 11/05/24 11:00 Oxygen Delivery Room Air 11/05/24 11:00 Reviewed MDM - Skin/Abscess/Foreign Bdy MDM Narrative Medical decision making narrative: Discussed physical exam findings c/w ingrown left thumbnail. no fluctuance or indication for I&D at this time. Shared decision making pt will start abx and f/u with pcp. WILLIAM and dressing applied per RN. Advised supportive measures and signs/symptoms to go to the ER. Pt is appropriate for outpt treatment and f/u. Differential Diagnosis Differential diagnosis: Likely abscess of skin or subcutaneous tissue, viral exanthem, dermatophytosis, urticaria, herpes zoster, cellulitis, eczema, insect bites, impetigo and contact dermatitis Discharge Plan Discharge Clinical Impression: Paronychia due to ingrown nail Patient Disposition: Home Condition: Stable Instructions: Antibiotic Form, Paronychia (ED), Ingrown Nail (ED) Additional Instructions: Soak your nail in warm soapy water 15 minutes 3 or 4 times each day. You can add Epson salt. This can help with any additional drainage that needs to come out. Raise your nail above the level of your heart as often as you can. This will help decrease swelling and pain. Avoid cutting or biting cuticles. Apply neosporin (triple antibiotic ointment) with a dressing/bandaid to keep the site covered while draining. Ok to leave it open to the air when not at risk for contamination. Tylenol as needed for pain Take antibiotic as directed Please follow-up with your primary care doctor in the next 3 days go to the ED for any urgent issues Patient Language: Turkmen Prescriptions: New cephalexin 500 mg capsule 500 mg PO Q6H 7 Days Qty: 28 0RF No Action sildenafil 100 mg tablet 100 mg PO HS PRN (Reason: Sexual Activity) glipizide 5 mg tablet 5 mg PO DAILY triamcinolone acetonide 0.1 % ointment TOPICAL aspirin 81 mg capsule 81 mg PO DAILY atorvastatin 40 mg tablet 40 mg PO HS lisinopril 10 mg tablet 10 mg PO DAILY Jardiance 25 mg tablet 25 mg PO DAILY Ozempic 1 mg/dose (4 mg/3 mL) pen injector 1 mg SUBCUT WEEKLY Rx Instructions: Sundays Follow-up/Referrals: Pan,Kris Schafer MD [Primary Care Provider] - Time of Disposition: 11:20
== END 2024-11-05 11:20 | disposition home or self-care (01) ==
PROVIDERS: Emergency Provider Nurse Practitioner Family; PCP Internal Medicine
DX: L03.012 Cellulitis of left finger (principal); L60.0 Ingrowing nail; I10 Essential (primary) hypertension; E11.9 Type 2 diabetes mellitus without complications; Z79.84 Long term (current) use of oral hypoglycemic drugs
CPT/HCPCS: 99213; G0463